=== PATIENT | female | born 1950 | race Two or more races ===

== ENCOUNTER → 2016-03-16 | Outpatient (CLI) | payer MEDICARE, MEDICAID | LOC: RAD 09:53 | PROVIDERS: ATTEND Internal Medicine | DX: M25.531 Pain in right wrist (principal) ==

== ENCOUNTER 2016-07-17 05:41 | Emergency (ER) | payer MEDICARE, MEDICAID ==
[2016-07-17] MEDS ORDERED: DEXAMETHASONE SOD PHOS INJ 10 MG/1 ML VIAL IM ONE (06:20)
--- NOTE | 2016-07-17 06:23 | ER Document Report ---
ED General - General Chief Complaint: Hand Swelling Stated Complaint: HAND PAIN Mode of Arrival: Ambulatory Information source: Patient Notes: 66-year-old female presents with complaints of right wrist swelling and hand pain of over 2 year duration. Patient notes she has been seen multiple times by her primary care physician and orthopedic physician, patient just had an MRI performed of her hand and was diagnosed with rheumatoid arthritis. Patient notes she was given voltaren cream which has not improved her symptoms. Patient denies any chest pain shortness breath difficulty breathing fevers or chills TRAVEL OUTSIDE OF THE [place] IN LAST 30 DAYS: No - HPI Onset: Just prior to arrival Onset/Duration: Sudden Quality of pain: Achy Severity: Mild Pain Level: 1 Associated symptoms: Body/muscle aches Exacerbated by: Movement Relieved by: Denies Similar symptoms previously: Yes Recently seen / treated by doctor: Yes - Related Data Allergies/Adverse Reactions: Penicillins Allergy (Verified 06/03/15 16:58) Hives, Dizziness Past Medical History - Social History Smoking Status: Never Smoker Cigarette use (# per day): No Chew tobacco use (# tins/day): No Smoking Education Provided: No Family History: Reviewed & Not Pertinent Patient has suicidal ideation: No Patient has homicidal ideation: No - Past Medical History Cardiac Medical History: Reports: Hx Atrial Fibrillation, Hx Coronary Artery Disease, Hx Hypercholesterolemia, Hx Hypertension Pulmonary Medical History: Reports: Hx Asthma, Hx Bronchitis, Hx COPD, Hx Pneumonia, Hx Sleep Apnea Renal/ Medical History: Reports: Hx Renal Insufficiency. Denies: Hx Peritoneal Dialysis GI Medical History: Reports: Hx Gastroesophageal Reflux Disease Musculoskeltal Medical History: Reports Hx Arthritis, Reports Hx Gout Psychiatric Medical History: Denies: Hx Depression Past Surgical History: Reports: Hx Cardiac Catheterization - 08-08-2013, Hx Cardiac Surgery, Hx Section, Hx Coronary Artery Bypass Graft - 4 vessel CABG in 2000 - Immunizations Immunizations up to date: Yes Hx Diphtheria, Pertussis, Tetanus Vaccination: Yes Hx Pneumococcal Vaccination: 04/20/14 Review of Systems - Review of Systems Notes: REVIEW OF SYSTEMS: CONSTITUTIONAL : Denies fever, chills, or sweats. Denies recent illness. EENT: Denies eye, ear, throat, or mouth pain or symptoms. Denies nasal or sinus congestion or discharge. Denies throat, tongue, or mouth swelling or difficulty swallowing. CARDIOVASCULAR: Denies chest pain. Denies palpitations or racing or irregular heart beat. Denies ankle edema. RESPIRATORY: Denies cough, cold, or chest congestion. Denies shortness of breath, difficulty breathing, or wheezing. GASTROINTESTINAL: Denies abdominal pain or distention. Denies nausea, vomiting , or diarrhea. Denies blood in vomitus, stools, or per rectum. Denies black, tarry stools. Denies constipation. GENITOURINARY: Denies difficulty urinating, painful urination, burning, frequency, blood in urine, or discharge. FEMALE GENITOURINARY: Denies vaginal bleeding, heavy or abnormal periods, irregular periods. Denies vaginal discharge or odor. MUSCULOSKELETAL: Admits to right wrist pain swelling SKIN: Denies rash, lesions or sores. HEMATOLOGIC : Denies easy bruising or bleeding. LYMPHATIC: Denies swollen, enlarged glands. NEUROLOGICAL: Denies confusion or altered mental status. Denies passing out or loss of consciousness. Denies dizziness or lightheadedness. Denies headache. Denies weakness or paralysis or loss of use of either side. Denies problems with gait or speech. Denies sensory loss, numbness, or tingling. Denies seizures. PSYCHIATRIC: Denies anxiety or stress. Denies depression, suicidal ideation, or homicidal ideation. ALL OTHER SYSTEMS REVIEWED AND NEGATIVE. Dictation was performed using [employer] voice recognition software PHYSICAL EXAMINATION: GENERAL: Well-appearing, well-nourished and in no acute distress. HEAD: Atraumatic, normocephalic. EYES: Pupils equal round and reactive to light, extraocular movements intact, conjunctiva are normal. ENT: Nares patent, oropharynx clear without exudates. Moist mucous membranes. NECK: Normal range of motion, supple without lymphadenopathy LUNGS: Breath sounds clear to auscultation bilaterally and equal. No wheezes rales or rhonchi. HEART: Regular rate and rhythm without murmurs ABDOMEN: Soft, nontender, nondistended abdomen. No guarding, no rebound. No masses appreciated. Female : deferred Musculoskeletal: Mild edema at the wrist tenderness all throughout the digits no secondary sign of cellulitis, pulses are intact, rheumatoid nodule noted NEUROLOGICAL: Cranial nerves grossly intact. Normal speech, normal gait. Normal sensory, motor exams PSYCH: Normal mood, normal affect. SKIN: Warm, Dry, normal turgor, no rashes or lesions noted. Physical Exam - Vital signs Vitals: Temp Pulse Resp BP Pulse Ox 98.2 F 66 18 148/71 H 100 07/17/16 05:43 07/17/16 05:43 07/17/16 05:43 07/17/16 05:43 07/17/16 05:43 Course - Re-evaluation Re-evalutation: 07/17/16 06:28 Patient has no obvious signs of deep vein thrombosis or cellulitis, given the patient has had this chronic swelling for over 2 years and had a recent MRI I do agree with the diagnosis of rheumatoid arthritis. Patient will be treated with steroids, she does have a history of "borderline diabetes ", she has been encouraged to recheck her blood sugar 3 times a day, and to return immediately if there are any other concerns After performing a Medical Screening Examination, I estimate there is LOW risk for OPEN FRACTURE, COMPARTMENT SYNDROME, TENDON RUPTURE, ACUTE NEUROVASCULAR INJURY, or RETAINED FOREIGN BODY, thus I consider the discharge disposition reasonable. Also, there is no evidence or peritonitis, sepsis, or toxicity. I have reevaluated this patient multiple times and no significant life threatening changes are noted. The patient and I have discussed the diagnosis and risks, and we agree with discharging home with close follow-up with the understanding that symptoms and presentations can change. We also discussed returning to the Emergency Department immediately if new or worsening symptoms occur. We have discussed the symptoms which are most concerning (e.g., changing or worsening pain, fever, numbness, weakness, cool or painful digits) that necessitate immediate return. - Vital Signs Vital signs: Temp Pulse Resp BP Pulse Ox 98.2 F 66 18 148/71 H 100 07/17/16 05:43 07/17/16 05:43 07/17/16 05:43 07/17/16 05:43 07/17/16 05:43 Discharge - Discharge Clinical Impression: Rheumatoid arthritis of wrist Qualifiers: Rheumatoid factor presence: without rheumatoid factor Laterality: right Qualified Code(s): M06.031 - Rheumatoid arthritis without rheumatoid factor, right wrist Pain of hand Qualifiers: Laterality: right Qualified Code(s): M79.641 - Pain in right hand Condition: Stable Disposition: HOME, SELF-CARE Instructions: Rheumatoid Arthritis ([facility]) Prescriptions: Tramadol HCl 50 mg PO BID #14 tablet Referrals: JULIANN ROCKWELL MD [ACTIVE STAFF] - Follow up tomorrow
[2016-07-17 06:34] VITALS: BP 144/54
== END 2016-07-17 06:30 | disposition home or self-care (01) ==
LOC: ER 05:41
DX: M06.031 Rheumatoid arthritis without rheumatoid factor, right wrist (principal); M79.641 Pain in right hand; I25.10 Atherosclerotic heart disease of native coronary artery without angina pectoris; I10 Essential (primary) hypertension; J44.9 Chronic obstructive pulmonary disease, unspecified; Z95.1 Presence of aortocoronary bypass graft; Z88.0 Allergy status to penicillin
CPT/HCPCS: 99283; 96372; J1100

== ENCOUNTER 2016-08-15 22:18 | Emergency (ER) | payer MEDICARE, MEDICAID ==
[2016-08-15] MEDS ORDERED: ASPIRIN 81 MG TABLET, CHEWABLE PO ONE (23:06)
--- NOTE | 2016-08-15 23:30 | RADIOLOGY REPORT (SQ) ---
EXAM DESCRIPTION: CHEST SINGLE VIEW COMPLETED DATE/TIME: 08/15/2016 11:21 pm REASON FOR STUDY: cp COMPARISON: 08/20/2015 EXAM PARAMETERS: NUMBER OF VIEWS: One view. TECHNIQUE: Single frontal radiographic view of the chest acquired. RADIATION DOSE: NA LIMITATIONS: None. FINDINGS: LUNGS AND PLEURA: No opacities, masses or pneumothorax. No pleural effusion. MEDIASTINUM AND HILAR STRUCTURES: No masses. Contour normal. HEART AND VASCULAR STRUCTURES: Heart normal in size. Normal vasculature. BONES: No acute findings. HARDWARE: Sternotomy wires are in place. OTHER: No other significant finding. IMPRESSION: NO ACUTE RADIOGRAPHIC FINDING IN THE CHEST. TECHNICAL DOCUMENTATION: JOB ID: [id number]
[2016-08-15 23:36] LABS: ABSOLUTE BASOPHILS # (AUTO) 0.1 10^3/uL (0.0-0.2); ABSOLUTE EOSINOPHILS # (AUTO) 0.1 10^3/uL (0.0-0.6); ABSOLUTE MONOCYTES (AUTO) 1.2 10^3/uL (0.1-1.4); BASOPHILS % (AUTO) 0.5 % (0-2); HEMATOCRIT 37.2 % (36.0-47.0); HEMOGLOBIN 12.3 g/dL (12.0-15.5); HGB HCT DIFFERENCE -0.3; LYMPHOCYTES % (AUTO) 16.1 % (13-45); MEAN CORPUSCULAR HEMOGLOBIN 28.6 pg (27.0-33.4); MEAN CORPUSCULAR HGB CONC 33.1 g/dL (32.0-36.0); MEAN CORPUSCULAR VOLUME 86 fl (80-97); MONOCYTES % (AUTO) 9.4 % (3-13); RED CELL DISTRIBUTION WIDTH 15.2 % (11.5-14.0); WHITE BLOOD COUNT 12.3 10^3/uL (4.0-10.5)
--- NOTE | 2016-08-15 23:37 | ER Document Report ---
ED General - General Chief Complaint: Back Pain Stated Complaint: CHEST PAIN Time Seen by Provider: 08/15/16 23:26 Notes: Patient is a 66-year-old female who presents with complaint of back pain that radiates around the lateral ribs. No anterior chest pain. No anterior abdominal pain. No difficulty breathing. Patient says the pain is been there for approximately a week. She saw Dr. Costa, her primary care physician. He did injections of her knees for chronic arthritis and and also placed her on a muscle relaxer for her back pain. She also has a history of gout. She is also followed by the orthopedist, Dr. Hahn. She denies any recent fevers. No infections. She does have a history of coronary artery disease with coronary bypass. This was performed in 2011. She denies any problems with coronary disease since the bypass surgery. No leg weakness or numbness. No dysuria. No other complaints at this time. TRAVEL OUTSIDE OF THE [place] IN LAST 30 DAYS: No - Related Data Allergies/Adverse Reactions: Penicillins Allergy (Verified 06/03/15 16:58) Hives, Dizziness Past Medical History - Social History Smoking Status: Unknown if Ever Smoked Frequency of alcohol use: None Drug Abuse: None Family History: Reviewed & Not Pertinent Patient has suicidal ideation: No Patient has homicidal ideation: No - Past Medical History Cardiac Medical History: Reports: Hx Atrial Fibrillation, Hx Coronary Artery Disease, Hx Hypercholesterolemia, Hx Hypertension Pulmonary Medical History: Reports: Hx Asthma, Hx Bronchitis, Hx COPD, Hx Pneumonia, Hx Sleep Apnea Renal/ Medical History: Reports: Hx Renal Insufficiency. Denies: Hx Peritoneal Dialysis GI Medical History: Reports: Hx Gastroesophageal Reflux Disease Musculoskeltal Medical History: Reports Hx Arthritis, Reports Hx Gout Psychiatric Medical History: Denies: Hx Depression Past Surgical History: Reports: Hx Cardiac Catheterization - 08-08-2013, Hx Cardiac Surgery, Hx Section, Hx Coronary Artery Bypass Graft - 4 vessel CABG in 2000 - Immunizations Immunizations up to date: Yes Hx Diphtheria, Pertussis, Tetanus Vaccination: Yes Hx Pneumococcal Vaccination: 04/20/14 Review of Systems - Review of Systems Notes: My Normal Review Basic REVIEW OF SYSTEMS: CONSTITUTIONAL : Denies fever, chills, or sweats. Denies recent illness. EENT: Denies eye, ear, throat, or mouth pain or symptoms. Denies nasal or sinus congestion. CARDIOVASCULAR: Denies chest pain. RESPIRATORY: Denies cough, cold, or chest congestion. Denies shortness of breath, difficulty breathing, or wheezing. GASTROINTESTINAL: Denies abdominal pain. Denies nausea, vomiting, or diarrhea. Denies constipation. Last BM: GENITOURINARY: Denies difficulty urinating, painful urination, burning, frequency, or blood in urine. MUSCULOSKELETAL: Denies neck or back pain or joint pain or back pain, knee pain. SKIN: Denies rash or skin lesions. NEUROLOGICAL: Denies altered mental status or loss of consciousness. Denies headache. Denies weakness or paralysis or loss of use of either side. Denies problems with gait or speech. Denies sensory or motor loss. ALL OTHER SYSTEMS REVIEWED AND NEGATIVE. Physical Exam - Vital signs Vitals: Temp Pulse Resp BP Pulse Ox 98.2 F 70 16 89/50 L 95 08/15/16 22:55 08/15/16 22:55 08/15/16 22:55 08/15/16 22:55 08/15/16 22:55 - Notes Notes: General Appearance: Well nourished, alert, cooperative, no acute distress, mild obvious discomfort. Vitals: reviewed, See vital signs table. Head: no swelling or tenderness to the head Eyes: PERRL, EOMI, Conjuctiva clear Mouth: No decreasd moisture Throat: No tonsillar inflammation, No airway obstruction, No lymphadenopathy Neck: Supple, no neck tenderness, Lungs: No wheezing, No rales, No rhonci, No accessory muscle use, good air exchange bilaterally. Heart: Normal rate, Regular rythm, No murmur, no rub Back: Easily reproducible pain over the thoracic paraspinal musculature. Paraspinal musculature is firm and tight. Lumbar spine is nontender. No step- offs deformities of the thoracic spine. Abdomen: Normal BS, soft, No rigidity, No abdominal tenderness, No guarding, no rebound, no abdominal masses, no organomegaly Extremities: strength 5/5 in all extremities, good pulses in all extremities, no swelling or tenderness in the extremities, no edema. Skin: warm, dry, appropriate color, no rash Neuro: speech clear, oriented x 3, normal affect, responds appropriately to questions. Course - Vital Signs Vital signs: Temp Pulse Resp BP Pulse Ox 98.2 F 70 16 89/50 L 95 08/15/16 22:55 08/15/16 22:55 08/15/16 22:55 08/15/16 22:55 08/15/16 22:55 - Laboratory Result Diagrams: 08/15/16 23:15 08/15/16 23:15 Laboratory results interpreted by me: 08/15/16 08/15/16 08/16/16 23:15 23:15 01:00 WBC 12.3 H RDW 15.2 H Absolute Neutrophils 9.0 H Chloride 97 L BUN 37 H Creatinine 1.35 H Est GFR ( Amer) 47 L Est GFR (Non-Af Amer) 39 L Glucose 234 H Creatine Kinase < 20 L Urine Glucose (UA) 50 H - EKG Interpretation by Me Additional EKG results interpreted by me: 08/15/16 23:36 EKG is reviewed and interpreted by me. EKG shows normal sinus rhythm with rate of [address] segment elevation or depression. No ischemic T-wave inversions. VA interval, QRS duration, QTc intervals are within normal range. Patient does have Q waves in inferior leads which is unchanged in comparison to their old EKG from February 27, 2016. - Transfer of Care Notes: 08/16/16 02:30 Patient's pain seems very muscle skeletal exam. Easily reproducible with palpation and movement. My only concern was that the patient was hypotensive when her first vital signs were obtained in triage. I think he is hypotensive vital signs most likely are false being that they immediately brought her back to the room and since being in the main ED room her blood pressures have all been either high or normal. She has good peripheral pulses. Being that she did have initial possible hypotension I did do a CTA to rule out dissection being that she had the back pain with the potential hypertension. This was negative. Patient's laboratory evaluation is unremarkable. There is a possibility is because of her hypertension could be that she was started on muscle relaxers today and this could potentially have lowered her blood pressure. I will have her stop taking the muscle relaxers. She has Ultram at home and has not been taking it. I encouraged her to take this for pain. I encouraged her follow-up closely with Dr. Costa. Patient's been here for several hours and has had no repeat hypotension. Patient has no chest pain. Cardiac enzymes are negative. Her chest x-ray is normal. Patient will be discharged home but is encouraged to return to ER for chest pain, abdominal pain , dizziness, or feels unwell. Patient denied any dizziness at all throughout the day and had no symptoms that would have been consistent with hypotension. Dictation of this chart was performed using voice recognition software; therefore, there may be some unintended grammatical errors. Discharge - Discharge Clinical Impression: Back pain Qualifiers: Back pain location: thoracic back pain Chronicity: acute Back pain laterality: bilateral Qualified Code(s): M54.6 - Pain in thoracic spine Knee pain, chronic Qualifiers: Laterality: bilateral Qualified Code(s): M25.561 - Pain in right knee Condition: Good Disposition: HOME, SELF-CARE Additional Instructions: Please take your tramadol at home. Please stop taking the muscle relaxer. Please follow up with Dr. Pollard closely. Please follow up with Dr. Hahn in regards to your knee pain. Please return tot ER immediately if you develop chest pain, difficulty breathing, fevers, dizziness, or feel unwell. Referrals: TAMMIE COSTA MD [Primary Care Provider] - Follow up tomorrow
[2016-08-15 23:41] LABS: ALANINE AMINOTRANSFERASE 28 U/L (9-52); ALBUMIN 4.2 g/dL (3.5-5.0); ALKALINE PHOSPHATASE 109 U/L (38-126); ANION GAP 14 (5-19); ASPARTATE AMINO TRANSFERASE 26 U/L (14-36); BILIRUBIN,DIRECT 0.3 mg/dL (0.0-0.4); BILIRUBIN,TOTAL 0.6 mg/dL (0.2-1.3); BLOOD UREA NITROGEN 37 mg/dL (7-20); CARBON DIOXIDE 27 mmol/L (22-30); CHLORIDE 97 mmol/L (98-107); CREATININE RESULT 1.35 mg/dL (0.52-1.25); GLUCOSE 234 mg/dL (75-110); POTASSIUM 4.1 mmol/L (3.6-5.0); SODIUM 137.8 mmol/L (137-145); TOTAL PROTEIN 8.2 g/dL (6.3-8.2)
[2016-08-15 23:44] LABS: CREATINE KINASE < 20 U/L (30-135)
[2016-08-15 23:55] LABS: CREATINE KINASE MB < 0.22 ng/mL (<4.55); TROPONIN I < 0.012 ng/mL
[2016-08-16] MEDS ORDERED: NORMAL SALINE 500 ML IV ONE (00:20)
[2016-08-16 01:32] LABS: APPEARANCE,URINE CLEAR; BILIRUBIN,URINE NEGATIVE (NEGATIVE); GLUCOSE, URINE 50 mg/dL (NEGATIVE); KETONES,URINE NEGATIVE (NEGATIVE); LEUKOCYTE ESTERASE,URINE NEGATIVE (NEGATIVE); NITRITE,URINE NEGATIVE (NEGATIVE); PROTEIN,URINE NEGATIVE (NEGATIVE); URINE SPECIFIC GRAVITY 1.014; UROBILINOGEN,URINE NEGATIVE mg/dL (<2.0)
--- NOTE | 2016-08-16 01:48 | RADIOLOGY REPORT (SQ) ---
EXAM DESCRIPTION: CTA CHEST COMPLETED DATE/TIME: 08/16/2016 1:25 am REASON FOR STUDY: BACK PAIN, CONCERN FOR DISECTION, PE COMPARISON: None. TECHNIQUE: CT scan of the chest performed using helical scanning technique with dynamic intravenous contrast injection. Images reviewed with lung, soft tissue and bone windows. Reconstructed coronal and sagittal MPR images reviewed. Additional 3 dimensional post-processing performed to develop Maximal Intensity Projection images (MT P). All images stored on PACS. All CT scanners at this facility use dose modulation, iterative reconstruction, and/or weight based d osing when appropriate to reduce radiation dose to as low as reasonably achievable (ALARA). [facility]: Dose Right [facility]: CareDose [facility]: Dose Right [facility]: Teradose 4D [facility]: [place] CONTRAST TYPE AND DOSE: 100 mL Isovue 370- low osmolar. RENAL FUNCTION: Creatinine 1.4 RADIATION DOSE: 14.81 mGy. LIMITATIONS: None. FINDINGS: LUNGS AND PLEURA: No masses, infiltrates, pneumothorax. No pleural effusions, calcificati ons. Small atelectasis or scar includes the left lung base and lingula. AORTA AND GREAT VESSELS: No aneurysm or dissection. HEART: No pericardial effusion. Coronary arterial calcification. PULMONARY ARTERIES: No emboli visualized in the main pulmonary arteries or the segmental branches. HILAR AND MEDIASTINAL STRUCTURES: No identified masses or abnormal nodes. HARDWARE: Sternotomy. UPPER ABDOMEN: No significant findings. Limited exam. THYROID AND OTHER SOFT TISSUES: No masses. No adenopathy. BONES: No acute findings. [id number] disc desiccation. 3D MIPS: Confirm above findings. OTHER: No other significant finding. IMPRESSION: No acute cardiopulmonary findings. NO PULMONARY EMBOLI. TECHNICAL DOCUMENTATION: JOB ID: [id number] Quality ID # [id number]: Final reports with documentation of one or more dose reduction techniques (e.g., Au tomated exposure control, adjustment of the mA and/or kV according to patient size, use of iterative reconstruction technique) 2010 [employer]- All Rights Reserved
--- NOTE | 2016-08-16 01:51 | RADIOLOGY REPORT (SQ) ---
EXAM DESCRIPTION: CT ABD/PELVIS WITH IV ONLY COMPLETED DATE/TIME: 08/16/2016 1:25 am REASON FOR STUDY: BACK PAIN, CONCERN FOR DISECTION, PE COMPARISON: None. TECHNIQUE: CT scan of the abdomen and pelvis performed using helical scanning technique with dynamic intravenous contrast injection. No oral contrast. Images reviewed with lung, soft tissue, and bone windows. Reconstructed coronal and sagittal MPR images reviewed. Delayed images for evaluation of the urinary system also acquired. All images stored on PACS. All CT scanners at this facility use dose modulation, iterative reconstruction, and/or weight based d osing when appropriate to reduce radiation dose to as low as reasonably achievable (ALARA). [facility]: Dose Right [facility]: CareDose [facility]: Dose Right [facility]: Teradose 4D [facility]: Wiper CONTRAST TYPE AND DOSE: 100mL Isovue 370- low osmolar. RENAL FUNCTION: Creatinine 1.4 RADIATION DOSE: 14.35mGy. LIMITATIONS: None. FINDINGS: LOWER CHEST: See separate report of the CT of the chest. LIVER: Normal size. No masses or dilated ducts. Mild hepatic steatosis. SPLEEN: Normal size. No focal lesions. PANCREAS: No masses. No significant calcifications. No adjacent inflammation or peripancreatic fluid collections. Pancreatic duct not dilated. GALLBLADDER: No identified stones by CT criteria. No inflammatory changes to suggest cholecystitis. ADRENAL GLANDS: No significant masses or asymmetry. RIGHT KIDNEY AND URETER: No solid masses. No significant calcifications. No hydronephrosis or hyd roureter. LEFT KIDNEY AND URETER: No solid masses. No significant calcifications. No hydronephrosis or hydr oureter. 1.0 cm likely benign cyst of the left kidney not definitively characterized. AORTA AND VESSELS: No aneurysm. No dissection. Renal arteries, SMA, celiac without stenosis. Atheros clerosis. RETROPERITONEUM: No retroperitoneal adenopathy, hemorrhage or masses. BOWEL AND PERITONEAL CAVITY: No masses or inflammatory changes. No free fluid or peritoneal masses. APPENDIX: Normal. PELVIS: No mass or free fluid. Normal bladder. ABDOMINAL WALL: No masses. No hernias. BONES: No significant or acute findings. Small L3-L4 disc bulge. OTHER: No other significant finding. IMPRESSION: NO SIGNIFICANT OR ACUTE FINDING IN THE ABDOMEN OR PELVIS ON CT SCAN WITH IV CONTRAST. TECHNICAL DOCUMENTATION: JOB ID: [id number] Quality ID # [id number]: Final reports with documentation of one or more dose reduction techniques (e.g., Au tomated exposure control, adjustment of the mA and/or kV according to patient size, use of iterative reconstruction technique) 2010 [email or web address]- All Rights Reserved
[2016-08-16 03:05] VITALS: BP 124/66
--- NOTE | 2016-08-16 09:13 | EKG REPORT ---
SEVERITY:- NORMAL ECG - SINUS RHYTHM : Confirmed by: Alison Garcia MD 16-Aug-2016 09:12:27
== END 2016-08-16 03:03 | disposition home or self-care (01) ==
LOC: ER 22:18
DX: M54.6 Pain in thoracic spine (principal); M25.561 Pain in right knee; M54.9 Dorsalgia, unspecified; R07.9 Chest pain, unspecified
CPT/HCPCS: 93005; 99284; 96360; 36415; 82553; 82550; 85025; 80053; 81001; 84484; 71010; 71275; 74177; 93010; A9270; J7040

== ENCOUNTER 2016-08-20 12:59 | Emergency (ER) | payer MEDICARE, MEDICAID ==
--- NOTE | 2016-08-20 14:17 | ER Document Report ---
ED Extremity Problem, Lower - General Chief Complaint: Swelling of Lower Extremity Stated Complaint: SWELLING OF FEET Time Seen by Provider: 08/20/16 13:47 Mode of Arrival: Ambulatory Information source: Patient Notes: 36-year-old female presents to ED for left foot pain and swelling. She states it has been this way since about the end of July and she has been to the doctor couple times and got a TRAVEL OUTSIDE OF THE [place] IN LAST 30 DAYS: No - HPI Patient complains to provider of: Pain, Swelling - left foot Location: Foot Occurred: Other - several weeks Onset/Duration: Gradual, Persistent Quality of pain: Sharp, Throbbing Severity: Severe Pain Level: 5 Context: Other - has gout Recent injury: No Associated symptoms: Painful ambulation Exacerbated by: Movement, Walking Relieved by: Nothing - Related Data Allergies/Adverse Reactions: Penicillins Allergy (Verified 08/20/16 13:01) Hives, Dizziness Past Medical History - General Information source: Patient - Social History Smoking Status: Never Smoker Cigarette use (# per day): No Chew tobacco use (# tins/day): No Smoking Education Provided: No Frequency of alcohol use: Occasional Drug Abuse: None Lives with: Family Family History: Reviewed & Not Pertinent Patient has suicidal ideation: No Patient has homicidal ideation: No - Past Medical History Cardiac Medical History: Reports: Hx Atrial Fibrillation, Hx Coronary Artery Disease, Hx Hypercholesterolemia, Hx Hypertension Pulmonary Medical History: Reports: Hx Asthma, Hx Bronchitis, Hx COPD, Hx Pneumonia, Hx Sleep Apnea EENT Medical History: Reports: None Neurological Medical History: Reports: None Endocrine Medical History: Reports: Hx Diabetes Mellitus Type 2 Renal/ Medical History: Reports: Hx Renal Insufficiency Malignancy Medical History: Reports: None GI Medical History: Reports: Hx Gastroesophageal Reflux Disease Musculoskeltal Medical History: Reports Hx Arthritis, Reports Hx Gout Skin Medical History: Reports None Psychiatric Medical History: Reports: None Traumatic Medical History: Reports: None Infectious Medical History: Reports: None Past Surgical History: Reports: Hx Cardiac Catheterization - 08-08-2013, Hx Cardiac Surgery, Hx Section, Hx Coronary Artery Bypass Graft - 4 vessel CABG in 2000 - Immunizations Immunizations up to date: Yes Hx Diphtheria, Pertussis, Tetanus Vaccination: Yes Hx Pneumococcal Vaccination: 04/20/14 Review of Systems - Review of Systems Constitutional: No symptoms reported EENT: No symptoms reported Cardiovascular: No symptoms reported Respiratory: No symptoms reported Gastrointestinal: No symptoms reported Genitourinary: No symptoms reported Female Genitourinary: No symptoms reported Musculoskeletal: Other - red painful left foot Skin: No symptoms reported Hematologic/Lymphatic: No symptoms reported Neurological/Psychological: No symptoms reported -: Yes All other systems reviewed and negative Physical Exam - Vital signs Vitals: Temp Pulse Resp BP Pulse Ox 97.8 F 90 18 159/73 H 98 08/20/16 13:01 08/20/16 13:01 08/20/16 13:01 08/20/16 13:01 08/20/16 13:01 Interpretation: Normal - General General appearance: Appears well, Alert - HEENT Head: Normocephalic, Atraumatic Eyes: Normal Pupils: PERRL - Respiratory Respiratory status: No respiratory distress Chest status: Nontender Breath sounds: Normal Chest palpation: Normal - Cardiovascular Rhythm: Regular Heart sounds: Normal auscultation Murmur: No - Abdominal Inspection: Normal Distension: No distension Bowel sounds: Normal Tenderness: Nontender Organomegaly: No organomegaly - Back Back: Normal, Nontender - Extremities General upper extremity: Normal inspection, Nontender, Normal color, Normal ROM , Normal temperature General lower extremity: Normal ROM. No: Liz's sign Foot: Tender, Other - Erythematous warm to touch and minimal swelling. Patient has a history of gout and is being treated for gout but patient did not take the prednisone as prescribed. - Neurological Neuro grossly intact: Yes Cognition: Normal Orientation: AAOx4 Phillip Coma Scale Eye Opening: Spontaneous [place] Coma Scale Verbal: Oriented Phillip Coma Scale Motor: Obeys Commands Phillip Coma Scale Total: 15 Speech: Normal Motor strength normal: LUE, RUE, LLE, RLE Sensory: Normal - Psychological Associated symptoms: Normal affect, Normal mood - Skin Skin Temperature: Warm Skin Moisture: Dry Skin Color: Normal Course - Re-evaluation Re-evalutation: 08/20/16 16:09 Dr. Cole concerning the blood levels and her assessment. He recommended putting the patient on decreasing dose of prednisone 6 day and then 4 days of just 10 mg a day. He also recommended she be started on allopurinol 100 mg a day and Percocet for pain is been a tramadol. These were all ordered. Patient was recommended to follow-up with Dr. Costa tomorrow and take her lab values and her prescriptions with her. - Vital Signs Vital signs: Temp Pulse Resp BP Pulse Ox 98.5 F 74 18 150/73 H 97 08/20/16 16:17 08/20/16 16:17 08/20/16 16:17 08/20/16 16:17 08/20/16 16:17 - Laboratory Result Diagrams: 08/20/16 14:15 08/20/16 14:15 Laboratory results interpreted by me: 08/20/16 08/20/16 14:15 14:15 WBC 11.9 H Hgb 11.3 L Hct 35.2 L RDW 15.0 H Seg Neutrophils % 81.9 H Lymphocytes % 7.3 L Absolute Neutrophils 9.8 H Sodium 133.2 L Chloride 93 L BUN 62 H Creatinine 1.30 H Est GFR ( Amer) 49 L Est GFR (Non-Af Amer) 41 L Glucose 239 H Uric Acid 13.0 H Direct Bilirubin 0.5 H AST 75 H ALT 110 H Alkaline Phosphatase 188 H Discharge - Discharge Clinical Impression: Gout Qualifiers: Gout site: foot Gout etiology: idiopathic Chronicity: chronic Laterality: left Presence of tophus: with tophus Qualified Code(s): M1A.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 Gout is a problem caused by an excess of uric acid, a natural chemical found in the body. The cause of this disease is unknown. Gout arthritis occurs when crystals of uric acid form in the joints. The big toe is the most common joint involved, but any joint can become affected. Persons with gout may also form uric acid kidney stones, resulting in flank pain and blood in the urine. Nodules of uric acid may form under the skin. The first step of treatment is to decrease the inflammation in the joint with antiinflammatory medication. Medication to lower the uric acid level in the blood may then be prescribed. This medication should be taken regularly, as any sudden change in dosage may provoke an attack of gout. Some foods, such as red meat, can provoke an attack in some gout sufferers. Call the doctor if new symptoms arise, or if you do not improve. Gout Diet Changing your diet can decrease the uric acid in your blood. High levels of uric acid cause gouty arthritis and uric acid kidney stones. If you have gout , you should avoid meats that are high in purine. Meat products to avoid include liver, kidneys, and brains. In general, poultry is better than red meats. Seafoods to avoid include anchovies, sardines, singh, mackerel, and scallops. In addition to limiting purine-rich foods, people with gout should limit protein intake to 10-15% of total calories. Carbohydrate intake should be around 50% of total daily calories. Limit fat intake to 30% of total daily calories. Cholesterol intake should be less than 300 mg/day. Maintain or achieve a healthy body weight. Weight loss should be gradual. Rapid weight loss can actually increase uric acid levels temporarily. Alcohol, especially beer, should be avoided. Get plenty of fluids. This dilutes urinary uric acid, and helps prevent uric acid kidney stones. Drink eight to twelve cups of water daily. STEROID MEDICATION: You have been given a medicine of the cortisone/steroid class. This medication is used to control inflammation or allergy. It is usually only given for a short period of time, until the acute process subsides. There are usually no side effects from short-term use of cortisone-like medications. Some persons feel an increased sense of well-being and are not sleepy at bedtime. Long-term use of cortisone medications is best avoided, unless required for a severe condition. If your condition does not remit, or relapses after the course of corticosteroid medication, you should consult your physician. Oral Narcotic Medication You have been given a prescription for pain control. This medication is a narcotic. It's best taken with food, as nausea can result if taken on an empty stomach. Don't operate machinery or drive within six hours of taking this medication. Do not combine this medicine with alcohol, or with any medication which can cause sedation (such as cold tablets or sleeping pills) unless you get permission from the physician. Narcotics tend to cause constipation. If possible, drink plenty of fluids and eat a diet high in fiber and fruits. FOLLOW-UP CARE: If you have been referred to a physician for follow-up care, call the physician s office for an appointment as you were instructed or within the next two days. If you experience worsening or a significant change in your symptoms, notify the physician immediately or return to the Emergency Department at any time for re-evaluation. Prescriptions: Oxycodone HCl/Acetaminophen [Percocet 5-325 mg Tablet] 1 tab PO Q6HP PRN #15 tablet PRN Reason: Allopurinol [Zyloprim 100 mg Tablet] 100 mg PO DAILY #30 tablet Prednisone [Sterapred Ds] 10 mg PO ASDIR PRN #25 tab.ds.pk PRN Reason: Forms: Elevated Blood Pressure Referrals: TAMMIE COSTA MD [Primary Care Provider] - Follow up as needed
[2016-08-20 14:41] LABS: ABSOLUTE LYMPHOCYTES (AUTO) 0.9 10^3/uL (0.5-4.7); ABSOLUTE MONOCYTES (AUTO) 1.3 10^3/uL (0.1-1.4); ABSOLUTE NEUT (AUTO) 9.8 10^3/uL (1.7-8.2); BASOPHILS % (AUTO) 0.1 % (0-2); EOSINOPHILS % (AUTO) 0.2 % (0-6); HEMATOCRIT 35.2 % (36.0-47.0); HEMOGLOBIN 11.3 g/dL (12.0-15.5); HGB HCT DIFFERENCE -1.3; LYMPHOCYTES % (AUTO) 7.3 % (13-45); MEAN CORPUSCULAR HEMOGLOBIN 27.9 pg (27.0-33.4); MEAN CORPUSCULAR HGB CONC 32.2 g/dL (32.0-36.0); MEAN CORPUSCULAR VOLUME 87 fl (80-97); MONOCYTES % (AUTO) 10.5 % (3-13); RED BLOOD COUNT 4.06 10^6/uL (3.72-5.28); SEGMENTED NEUTROPHILS % (AUTO) 81.9 % (42-78); WHITE BLOOD COUNT 11.9 10^3/uL (4.0-10.5)
[2016-08-20 14:56] LABS: ALANINE AMINOTRANSFERASE 110 U/L (9-52); ALBUMIN 3.7 g/dL (3.5-5.0); ALKALINE PHOSPHATASE 188 U/L (38-126); ANION GAP 16 (5-19); ASPARTATE AMINO TRANSFERASE 75 U/L (14-36); BILIRUBIN,DIRECT 0.5 mg/dL (0.0-0.4); BILIRUBIN,TOTAL 0.8 mg/dL (0.2-1.3); BLOOD UREA NITROGEN 62 mg/dL (7-20); CALCIUM 9.4 mg/dL (8.4-10.2); CARBON DIOXIDE 24 mmol/L (22-30); CHLORIDE 93 mmol/L (98-107); CREATINE KINASE 30 U/L (30-135); GLUCOSE 239 mg/dL (75-110); POTASSIUM 4.1 mmol/L (3.6-5.0); SODIUM 133.2 mmol/L (137-145); TOTAL PROTEIN 7.4 g/dL (6.3-8.2)
[2016-08-20 15:28] LABS: CREATINE KINASE MB 0.47 ng/mL (<4.55)
[2016-08-20 15:30] LABS: TROPONIN I < 0.012 ng/mL
[2016-08-20 16:19] VITALS: BP 150/73
== END 2016-08-20 16:18 | disposition home or self-care (01) ==
LOC: ER 12:59
DX: M1A.0721 Idiopathic chronic gout, left ankle and foot, with tophus (tophi) (principal); M79.89 Other specified soft tissue disorders; M79.672 Pain in left foot
CPT/HCPCS: 36415; 80053; 82550; 82553; 84484; 84550; 85025; 99283

== ENCOUNTER → 2016-09-05 | Outpatient (CLI) | payer MEDICARE ==
--- NOTE | 2016-09-05 14:09 | WOMENS IMAGING REPORT ---
EXAM DESCRIPTION: 3D SCREENING MAMMO BILAT COMPLETED DATE/TIME: 09/05/2016 11:42 am REASON FOR STUDY: ROUTINE SCREENING; Z12.31 Z12.31 ENCNTR SCREEN MAMMOGRAM FOR MALIGNANT NEOPLASM O F SAPPHIRE COMPARISON: 2012 TECHNIQUE: Standard craniocaudal and mediolateral oblique views of each breast recorded using digita l acquisition and breast tomosynthesis. LIMITATIONS: None. FINDINGS: Findings present which are benign by mammographic criteria. No suspicious masses, calcifi cations or architectural distortion. Pertinent benign findings: Stable benign right breast intramammary lymph node, stable bilateral breas t parenchymal and vascular calcifications. Read with the assistance of CAD. .[facility] - R2 Cenova Version 1.3 .[facility] Imaging - R2 Cenova Version 1.3 .[facility] - R2 Cenova Version 2.4 .[facility] [place] Cenova Version 2.4 .[facility] - R2 Opal Miner Version 9.2 Benign mammographic findings may include one or more of the following: Smooth masses, popcorn/rim/co arse calcifications, asymmetries, post-procedure changes, and lesions with long-standing stability. IMPRESSION: BENIGN MAMMOGRAPHIC FINDINGS. BIRADS 2 BREAST DENSITY: b. There are scattered areas of fibroglandular density. BIRAD: 2 BENIGN FINDING(S) RECOMMENDATION: RECOMMENDATION: ROUTINE SCREENING Please continue yearly bilateral screening tomosynthesis in August 2017 COMMENT: The patient has been notified of the results by letter per SA requirements. Additional no tification policies are in place for contacting patient with suspicious or incomplete findings. Quality ID #[id number]: The [employer] recommends an annual screening mammogram for women aged 40 years or over. This facility utilizes a reminder system to ensure that all patients receive reminder letters, and/or direct phone calls for appointments. This includes reminders for routine scr eening mammograms, diagnostic mammograms, or other Breast Imaging Interventions when appropriate. Th is patient will be placed in the appropriate reminder system. The [employer] (ACR) has developed recommendations for screening MRI of the breast s in certain patient populations, to be used in conjunction with mammography. Breast MRI surveillanc e may be appropriate for women with more than 20% lifetime risk of developing breast cancer as deter mined by genetic testing, significant family history of the disease, or history of mantle radiation f or Hodgkins Disease. ACR Practice Guidelines 2008. DBT Technology DBT is a type of tomographic mammography. With conventional mammography, overlapping breast tissue ma y make lesions difficult to detect, even with good compression. DBT uses an x-ray tube that rotates a round the breast, taking images at different angles. These images are then combined to create thin sl ices of the breast that the radiologist can view as a 3D reconstruction. The Hologic unit can perform full-field digital mammograms (2D imaging); or DBT (3D imaging); or both, in a combination mode that quickly performs both the mammogram and the tomosynthesis scan while the breast is still compressed. PQRS 6045F: Fluoroscopic imaging is not utilized for breast tomosynthesis. TECHNICAL DOCUMENTATION: FINDING NUMBER: (1) ASSESSMENT: (1) JOB ID: [id number] [employer]- All Rights Reserved
== END ==
LOC: WI 11:16
PROVIDERS: ATTEND Internal Medicine
DX: Z12.31 Encounter for screening mammogram for malignant neoplasm of breast (principal)
CPT/HCPCS: 77063; G0202; 77067

== ENCOUNTER 2016-09-20 20:14 | Observation (INO) | payer MEDICARE, MEDICAID ==
[2016-09-20] MEDS ORDERED: ONDANSETRON HCL INJ/PF 4 MG/2 ML SDV IV ONE (22:15)
[2016-09-20] MEDS ORDERED: ASPIRIN 81 MG TABLET, CHEWABLE PO ONE (22:15)
[2016-09-20] MEDS ORDERED: MORPHINE SULFATE 10 MG/ML INJ IV ONE (22:15)
--- NOTE | 2016-09-20 22:17 | ER Document Report ---
ED Cardiac - General Chief Complaint: High Blood Pressure Stated Complaint: BLOOD PRESSURE ISSUES Time Seen by Provider: 09/20/16 21:59 Notes: Patient is a 66 year old female that comes emergency department for chief complaint of chest tightness that began at about 6 PM, this lasted for a couple of minutes and then resolved, she also states that she checked her blood pressure and noticed it was high, she also states that she has a painful left foot with a gout flare. She states she is currently on prednisone for this. She denies current chest pain, denies shortness of breath, cough, fever. Past medical history of COPD, former smoker, hypertension, type 2 diabetes, and CAD with bypass in 2000. Negative stress test 2 years ago. She takes a baby aspirin daily. TRAVEL OUTSIDE OF THE [place] IN LAST 30 DAYS: No - Related Data Allergies/Adverse Reactions: Penicillins Allergy (Verified 08/20/16 13:01) Hives, Dizziness Past Medical History - General Information source: Patient - Social History Smoking Status: Never Smoker Frequency of alcohol use: None Drug Abuse: None Lives with: Alone Family History: Reviewed & Not Pertinent Patient has suicidal ideation: No Patient has homicidal ideation: No - Past Medical History Cardiac Medical History: Reports: Hx Atrial Fibrillation, Hx Coronary Artery Disease, Hx Hypercholesterolemia, Hx Hypertension Pulmonary Medical History: Reports: Hx Asthma, Hx Bronchitis, Hx COPD, Hx Pneumonia, Hx Sleep Apnea Endocrine Medical History: Reports: Hx Diabetes Mellitus Type 2 Renal/ Medical History: Reports: Hx Renal Insufficiency. Denies: Hx Peritoneal Dialysis GI Medical History: Reports: Hx Gastroesophageal Reflux Disease Musculoskeltal Medical History: Reports Hx Arthritis, Reports Hx Gout Psychiatric Medical History: Denies: Hx Depression Past Surgical History: Reports: Hx Cardiac Catheterization - 08-08-2013, Hx Cardiac Surgery, Hx Section, Hx Coronary Artery Bypass Graft - 4 vessel CABG in 2000 - Immunizations Immunizations up to date: Yes Hx Diphtheria, Pertussis, Tetanus Vaccination: Yes Hx Pneumococcal Vaccination: 04/20/14 Review of Systems - Review of Systems Constitutional: No symptoms reported EENT: No symptoms reported Cardiovascular: See HPI Respiratory: No symptoms reported Gastrointestinal: No symptoms reported Genitourinary: No symptoms reported Female Genitourinary: No symptoms reported Musculoskeletal: No symptoms reported Skin: No symptoms reported Hematologic/Lymphatic: No symptoms reported Neurological/Psychological: No symptoms reported Physical Exam - Vital signs Vitals: Temp Pulse Resp BP Pulse Ox 98.2 F 95 18 147/75 H 97 09/20/16 20:30 09/20/16 20:30 09/20/16 20:30 09/20/16 20:30 09/20/16 20:30 Interpretation: Normal - General General appearance: Alert, Anxious In distress: None - patient talks rapidly and slightly nervously - HEENT Head: Normocephalic, Atraumatic Eyes: Normal Pupils: PERRL - Respiratory Respiratory status: No respiratory distress Chest status: Nontender. No: Tender Breath sounds: Normal. No: Decreased air movement, Wheezing Chest palpation: Normal - Cardiovascular Rhythm: Regular, Tachycardia Heart sounds: Normal auscultation, S1 appreciated, S2 appreciated Murmur: No - Abdominal Inspection: Normal Distension: No distension Bowel sounds: Normal Tenderness: Nontender Organomegaly: No organomegaly - Back Back: Normal, Nontender - Extremities General upper extremity: Normal inspection, Nontender, Normal color, Normal ROM , Normal temperature General lower extremity: Normal inspection, Nontender, Normal color, Normal ROM , Normal temperature, Normal weight bearing. No: Liz's sign - Neurological Neuro grossly intact: Yes Cognition: Normal Orientation: AAOx4 [place] Coma Scale Eye Opening: Spontaneous [place] Coma Scale Verbal: Oriented [place] Coma Scale Motor: Obeys Commands [place] Coma Scale Total: 15 Speech: Normal Motor strength normal: LUE, RUE, LLE, RLE Sensory: Normal - Psychological Associated symptoms: Anxious. No: Aggressive, Agitated, Angry, Confused - Skin Skin Temperature: Warm Skin Moisture: Dry Skin Color: Normal Course - Re-evaluation Re-evalutation: EKG shows sinus tachycardia with no T-wave inversions or ST segment changes in consecutive leads. On my examination patient is slightly nervous and anxious, mildly tachycardic, I actually suspect this is related to her emotions. Workup pending. No shortness of breath, LE swelling, recent travel or surgery, or history of blood clot. She does not smoke. Chest x-ray unremarkable, chemistry generally unremarkable suggestive of mild dehydration, CBC shows mild leukocytosis consistent with patient's steroid use for her gout flare. Initial troponin is negative. On reexamination patient's tachycardia resolved, she has calmed down. She reports no current complaints. Enzymes cycled, no significant change. Discussed with Dr. Stevens. Discussed with patient. Because of patient's symptoms, comorbidities, and patient being anxious about going home, will discuss with her provider for potential telemetry observation Discussed with Dr. Cano. Patient will be admitted for telemetry observation. I noticed on the monitor patient became tachycardic at 110s. Evaluated patient at bedside, she states she really has to urinate. After she urinated, heart rate reevaluated and noted to be in the 80s and 90s. Pending admission. - Vital Signs Vital signs: Temp Pulse Resp BP Pulse Ox 98 F 108 H 13 137/61 H 96 09/21/16 04:00 09/20/16 21:52 09/21/16 05:00 09/21/16 04:00 09/21/16 05:00 - Laboratory Result Diagrams: 09/20/16 21:25 09/20/16 21:25 Laboratory results interpreted by me: 09/20/16 09/20/16 09/20/16 21:25 21:25 23:40 WBC 14.2 H RDW 15.2 H Absolute Neutrophils 9.9 H Sodium 134.6 L Chloride 88 L BUN 27 H Est GFR ( Amer) 55 L Est GFR (Non-Af Amer) 46 L Glucose 173 H Alkaline Phosphatase 132 H Creatine Kinase < 20 L Urine Glucose (UA) 50 H Ur Leukocyte Esterase TRACE H Discharge - Discharge Clinical Impression: Left foot pain Chest pain Qualifiers: Chest pain type: unspecified Qualified Code(s): R07.9 - Chest pain, unspecified Condition: Stable Disposition: ADMITTED OBSERVATION Admitting Provider: [facility] Admitted: Telemetry
[2016-09-20 22:25] LABS: ABSOLUTE MONOCYTES (AUTO) 1.3 10^3/uL (0.1-1.4); ABSOLUTE NEUT (AUTO) 9.9 10^3/uL (1.7-8.2); BASOPHILS % (AUTO) 0.3 % (0-2); EOSINOPHILS % (AUTO) 0.3 % (0-6); HEMATOCRIT 38.3 % (36.0-47.0); HEMOGLOBIN 12.5 g/dL (12.0-15.5); HGB HCT DIFFERENCE -0.8; LYMPHOCYTES % (AUTO) 20.9 % (13-45); MEAN CORPUSCULAR HEMOGLOBIN 28.4 pg (27.0-33.4); MEAN CORPUSCULAR HGB CONC 32.7 g/dL (32.0-36.0); MEAN CORPUSCULAR VOLUME 87 fl (80-97); MONOCYTES % (AUTO) 9.2 % (3-13); RED BLOOD COUNT 4.41 10^6/uL (3.72-5.28); RED CELL DISTRIBUTION WIDTH 15.2 % (11.5-14.0); SEGMENTED NEUTROPHILS % (AUTO) 69.3 % (42-78); WHITE BLOOD COUNT 14.2 10^3/uL (4.0-10.5)
--- NOTE | 2016-09-20 22:33 | RADIOLOGY REPORT (SQ) ---
EXAM DESCRIPTION: CHEST SINGLE VIEW COMPLETED DATE/TIME: 09/20/2016 10:26 pm REASON FOR STUDY: chest tightness COMPARISON: Chest radiograph 08/15/2016 EXAM PARAMETERS: NUMBER OF VIEWS: One view. TECHNIQUE: Single frontal radiographic view of the chest acquired. RADIATION DOSE: NA LIMITATIONS: None. FINDINGS: LUNGS AND PLEURA: No opacities, masses or pneumothorax. No pleural effusion. MEDIASTINUM AND HILAR STRUCTURES: No masses. Contour normal. HEART AND VASCULAR STRUCTURES: Heart normal in size. Normal vasculature. BONES: No acute findings. HARDWARE: Sternal wires. OTHER: No other significant finding. IMPRESSION: NO ACUTE RADIOGRAPHIC FINDING IN THE CHEST. TECHNICAL DOCUMENTATION: JOB ID: [id number]
[2016-09-20 22:34] LABS: ALANINE AMINOTRANSFERASE 34 U/L (9-52); ALKALINE PHOSPHATASE 132 U/L (38-126); ANION GAP 17 (5-19); ASPARTATE AMINO TRANSFERASE 24 U/L (14-36); BILIRUBIN,DIRECT 0.4 mg/dL (0.0-0.4); BLOOD UREA NITROGEN 27 mg/dL (7-20); CALCIUM 9.8 mg/dL (8.4-10.2); CARBON DIOXIDE 30 mmol/L (22-30); CHLORIDE 88 mmol/L (98-107); CREATININE RESULT 1.18 mg/dL (0.52-1.25); GLUCOSE 173 mg/dL (75-110); POTASSIUM 3.8 mmol/L (3.6-5.0); SODIUM 134.6 mmol/L (137-145); TOTAL PROTEIN 7.8 g/dL (6.3-8.2)
[2016-09-20 22:41] LABS: CREATINE KINASE < 20 U/L (30-135)
[2016-09-20 22:48] LABS: CREATINE KINASE MB < 0.22 ng/mL (<4.55); TROPONIN I < 0.012 ng/mL
[2016-09-21 00:49] LABS: APPEARANCE,URINE SLIGHTLY-CLOUDY; BILIRUBIN,URINE NEGATIVE (NEGATIVE); GLUCOSE, URINE 50 mg/dL (NEGATIVE); KETONES,URINE NEGATIVE (NEGATIVE); LEUKOCYTE ESTERASE,URINE TRACE (NEGATIVE); NITRITE,URINE NEGATIVE (NEGATIVE); PROTEIN,URINE NEGATIVE (NEGATIVE); URINE SPECIFIC GRAVITY 1.009; UROBILINOGEN,URINE NEGATIVE mg/dL (<2.0)
[2016-09-21] MEDS ORDERED: MORPHINE SULFATE 10 MG/ML INJ IV ONE (06:05)
--- NOTE | 2016-09-21 08:22 | EKG REPORT ---
SEVERITY:- BORDERLINE ECG - SINUS TACHYCARDIA CONSIDER INFERIOR INFARCT : Confirmed by: Karsten Fong MD 21-Sep-2016 08:20:36
[2016-09-21] MEDS ORDERED: GLUCAGON,HUMAN RECOMB 1 MG INJ IM PRN (09:33)
[2016-09-21] MEDS ORDERED: DEXTROSE 50%-WATER SYRINGE 12.5 GM/25 ML DOSE IV PRN (09:33)
[2016-09-21] MEDS ORDERED: DEXTROSE 50%-WATER SYRINGE 25 GM/50 ML DOSE IV PRN (09:33)
[2016-09-21] MEDS ORDERED: DEXTROSE 40% GEL 15 GM TUBE PO PRN (09:33)
[2016-09-21] MEDS ORDERED: DEXTROSE 40% GEL 15 GM TUBE X 2 PO PRN (09:33)
[2016-09-21] MEDS ORDERED: NITROGLYCERIN 0.4 MG/TAB 25 TAB/BOTTLE SL PRN (09:54)
[2016-09-21] MEDS ORDERED: LIDOCAINE HCL 76.5 GM TP PRN (09:54)
[2016-09-21] MEDS ORDERED: (PENDING PHARMACY ID) (Benazepril Hcl [Lotensin] 40 MG) PO SCH (10:00)
[2016-09-21] MEDS ORDERED: MULTIVITAMIN TABLET PO ONE (10:30)
[2016-09-21] MEDS ORDERED: METOPROLOL SUCCINATE 50 MG TAB.SR.24H PO ONE (10:30)
[2016-09-21] MEDS ORDERED: METHYLPREDNISOLONE INJ 125 MG/2 ML SDV IV ONE (10:45)
[2016-09-21 10:46] LABS: CREATINE KINASE MB 0.57 ng/mL (<4.55); TROPONIN I 0.019 ng/mL
[2016-09-21] MEDS: TIOTROPIUM BROMIDE DPI 5 CAP/KIT (18 MCG/CAP) IH SCH (12:07)
[2016-09-21] MEDS: BUDESONIDE/FORMOTEROL 160-4.5 MCG 60 PUFF/6 GM MDI IH SCH ×2 (12:09→22:29)
[2016-09-21] MEDS: ASPIRIN 81 MG TABLET, CHEWABLE PO SCH (12:10)
[2016-09-21] MEDS: CHOLECALCIFEROL (D3) 1,000 UNIT TABLET PO SCH (12:10)
[2016-09-21] MEDS: FUROSEMIDE 20 MG TABLET PO SCH (12:12)
[2016-09-21] MEDS: BENAZEPRIL HCL 20 MG TABLET PO SCH (12:12)
[2016-09-21] MEDS: AMLODIPINE BESYLATE 10 MG TABLET PO SCH (12:12)
[2016-09-21] MEDS: TRIAMCINOLONE ACETONIDE 0.5% CREAM 15 GM TP SCH ×2 (12:13→17:18)
[2016-09-21] MEDS: COLCHICINE 0.6 MG TABLET PO SCH ×2 (12:13→17:17)
[2016-09-21] MEDS: INSULIN LISPRO 100 UNIT/ML 3 ML VIAL SUBCUT PRN ×3 (12:44→23:20)
[2016-09-21 17:45] LABS: CREATINE KINASE MB 0.38 ng/mL (<4.55); TROPONIN I 0.018 ng/mL
--- NOTE | 2016-09-21 18:59 | PDOC PROGRESS REPORT ---
Subjective Progress Note for:: 09/21/16 Physical Exam Vital Signs: Temp Pulse Resp BP Pulse Ox 98.0 F 66 19 103/49 L 99 09/21/16 15:54 09/21/16 15:54 09/21/16 15:54 09/21/16 15:54 09/21/16 15:54 Intake & Output 09/20/16 09/21/16 09/22/16 06:59 06:59 06:59 Intake Total 362 Output Total 400 Balance -38 Weight 50.3 kg Results Laboratory Results: 09/21/16 17:10 Uric Acid 9.7 H 09/21/16 09/21/16 09/21/16 09:50 09:50 17:10 Creatine Kinase < 20 L < 20 L CK-MB (CK-2) 0.57 Troponin I 0.019 09/21/16 17:10 Creatine Kinase CK-MB (CK-2) 0.38 Troponin I 0.018 Impressions: Chest X-Ray 09/20/16 22:15 IMPRESSION: NO ACUTE RADIOGRAPHIC FINDING IN THE CHEST.
[2016-09-21] MEDS ORDERED: (PENDING PHARMACY ID) (Rosuvastatin Calcium [Crestor 20 Mg Tablet] 20 MG) PO SCH (22:00)
[2016-09-21] MEDS: ATORVASTATIN CALCIUM 40 MG TABLET PO SCH (22:28)
[2016-09-21] MEDS: PREGABALIN 50 MG CAPSULE PO SCH (22:28)
--- NOTE | 2016-09-21 22:57 | RADIOLOGY REPORT (SQ) ---
EXAM DESCRIPTION: MRI LT LOWER EXTREMITY WITHOUT COMPLETED DATE/TIME: 09/21/2016 10:19 pm REASON FOR STUDY: osteomyelitis left foot COMPARISON: None. There are no x-rays of the foot for correlation. TECHNIQUE: Multiplanar imaging of the left foot to include T1-weighted and STIR images without contr ast. CONTRAST TYPE AND DOSE: Noncontrast study. RENAL FUNCTION: Noncontrast study. LIMITATIONS: None. FINDINGS: BONE MARROW: There is prominent erosion of the head of the 1st metatarsal with associated soft tissue. There are several areas of abnormal marrow signal in the distal 1st metatarsal with dec reased signal on T1 and increased signal on STIR images. There is mild hallux valgus. There is also a destructive lesion involving the 3rd toe at the DIP joint. This is associated with bony destructi on and soft tissue mass. SOFT TISSUES: No soft tissue abscess or swelling. OTHER: No other significant finding. IMPRESSION: EROSION OF THE HEAD OF THE 1ST METATARSAL WITH ASSOCIATED SOFT TISSUE MASS. FINDINGS CO ULD BE DUE TO GOUT. SIMILAR FINDINGS ARE PRESENT IN THE 3RD TOE. X-RAYS WERE NOT OBTAINED PRIOR TO THE MRI SCAN. CORRELATION WITH X-RAYS OF THE FOOT IS NECESSARY FOR MORE COMPLETE EVALUATION. TECHNICAL DOCUMENTATION: JOB ID: [id number] [employer]- All Rights Reserved
[2016-09-22 02:15] LABS: CREATINE KINASE MB 0.23 ng/mL (<4.55)
[2016-09-22 02:21] LABS: TROPONIN I < 0.012 ng/mL
[2016-09-22] MEDS: INSULIN LISPRO 100 UNIT/ML 3 ML VIAL SUBCUT PRN ×4 (08:17→21:58)
[2016-09-22] MEDS: BUDESONIDE/FORMOTEROL 160-4.5 MCG 60 PUFF/6 GM MDI IH SCH ×2 (11:27→22:01)
[2016-09-22] MEDS: TIOTROPIUM BROMIDE DPI 5 CAP/KIT (18 MCG/CAP) IH SCH (11:28)
[2016-09-22] MEDS: PREGABALIN 50 MG CAPSULE PO SCH ×2 (11:29→21:58)
[2016-09-22] MEDS: ASPIRIN 81 MG TABLET, CHEWABLE PO SCH (11:29)
[2016-09-22] MEDS: MULTIVITAMIN TABLET PO SCH (11:30)
[2016-09-22] MEDS: COLCHICINE 0.6 MG TABLET PO SCH ×2 (11:30→17:22)
[2016-09-22] MEDS: AMLODIPINE BESYLATE 10 MG TABLET PO SCH (11:31)
[2016-09-22] MEDS: BENAZEPRIL HCL 20 MG TABLET PO SCH (11:31)
[2016-09-22] MEDS: FUROSEMIDE 20 MG TABLET PO SCH (11:31)
[2016-09-22] MEDS: CHOLECALCIFEROL (D3) 1,000 UNIT TABLET PO SCH (11:32)
[2016-09-22] MEDS: METOPROLOL SUCCINATE 50 MG TAB.SR.24H PO SCH (11:32)
[2016-09-22] MEDS: TRIAMCINOLONE ACETONIDE 0.5% CREAM 15 GM TP SCH ×2 (11:33→17:22)
[2016-09-22] MEDS ORDERED: SYNJARDY PO SCH (17:00)
--- NOTE | 2016-09-22 18:34 | RADIOLOGY REPORT (SQ) ---
EXAM DESCRIPTION: FOOT LEFT COMPLETE COMPLETED DATE/TIME: 09/22/2016 6:17 pm REASON FOR STUDY: foot pain E08.21 DIABETES DUE TO UNDERLYING CONDITION W DIABETIC NEPHR COMPARISON: None. NUMBER OF VIEWS: Three views. TECHNIQUE: AP, lateral and oblique radiographic images acquired of the left foot. LIMITATIONS: None. FINDINGS: MINERALIZATION: Osteopenia. BONES: Dorsal calcaneal spur. No fracture. There is questionable erosion of the head of 1st metatar idania on the oblique view. JOINTS: No effusions. SOFT TISSUES: Soft tissue swelling over the head of the 1st metatarsal. OTHER: No other significant finding. IMPRESSION: 1. Calcaneal spur. 2. Soft tissue swelling over the head of the 1st metatarsal with possible erosion. Is there any cli nical evidence of or history of gout? Is there clinical concern for osteomyelitis? TECHNICAL DOCUMENTATION: JOB ID: [id number] [employer]- All Rights Reserved
--- NOTE | 2016-09-22 19:09 | PDOC H&P ---
History of Present Illness Admission Date/PCP: 09/21/16 04:35 TAMMIE COSTA MD History of Present Illness: JEREMI GERMAN is a 66 year old female ,she has a history of coronary artery disease,gouty arthropathy she came to the emergency room for evaluation of chest pain and foot pain. The chest pain is atypical in character because of history of coronary artery disease she was admitted for observation. Three sets of cardiac enzymes are negative for acute myocardial infarction. MRI of the left foot was done, showed erosion of the head of the first metatarsal bone with associated soft tissue mass. Past Medical History Cardiac Medical History: Reports: Coronary Artery Disease, Hyperlipidema, Hypertension Pulmonary Medical History: Reports: Asthma, Bronchitis, Chronic Obstructive Pulmonary Disease (COPD), Pneumonia - long time ago, Sleep Apnea Endocrine Medical History: Reports: Diabetes Mellitus Type 2 GI Medical History: Reports: Gastroesophageal Reflux Disease Musculoskeltal Medical History: Reports: Arthritis, Gout Past Surgical History Past Surgical History: Reports: Cardiac Catheterization - 08-08-2013, Section, Coronary Artery Bypass Graft - 4 vessel CABG in 2000 Social History Lives with: Alone Smoking Status: Never Smoker Frequency of Alcohol Use: None Hx Recreational Drug Use: No Drugs: None Hx Prescription Drug Abuse: No - Advance Directive Resuscitation Status: Full Code Family History Family History: Reviewed & Not Pertinent Parental Family History Reviewed: Yes Children Family History Reviewed: Yes Sibling(s) Family History Reviewed.: Yes Medication/Allergy Home Medications: Amlodipine Besylate [Norvasc 10 mg Tablet] 10 mg PO DAILY 09/21/16 Aspirin [Aspirin 81 mg Chewable Tablet] 162 mg PO DAILY 09/21/16 Benazepril HCl [Lotensin] 40 mg PO DAILY 09/21/16 Budesonide/Formoterol Fumarate [Symbicort HFA 160-4.5 mcg Inhaler 6 gm] 2 puff IH Q12 09/21/16 Cholecalciferol (Vitamin D3) [Vitamin D3 1000 Unit Tablet] 1,000 unit PO DAILY 09/21/16 Colchicine [Colchicine 0.6 mg Tablet] 0.6 mg PO BID 09/21/16 Furosemide [Lasix 20 mg Tablet] 20 mg PO DAILY 09/21/16 Lidocaine HCl [Aspercreme] 76.5 gm TP ASDIR PRN 09/21/16 Multivitamin [Multivitamins] 1 each PO DAILY 09/21/16 Nitroglycerin [Nitrostat 0.4 mg (1/150 Gr) Tabs 25/Bottle] 1 tab SL Q5MP PRN Rosuvastatin Calcium [Crestor 20 mg Tablet] 20 mg PO QHS 09/21/16 Tiotropium [place] [Spiriva Handihaler 5 Cap/Kit (18 Mcg/Cap)] 1 cap IH DAILY Triamcinolone Acetonide [Aristocort 0.5% Cream 15 gm] 1 applic TP BID 09/21/16 Allopurinol [Zyloprim 100 mg Tablet] 100 mg PO Q8H #90 tablet 09/22/16 Metoprolol Succinate [Toprol XL 100 mg Tablet] 100 mg PO DAILY #90 tab.sr.24h Allergies/Adverse Reactions: Penicillins Allergy (Verified 08/20/16 13:01) Hives, Dizziness Review of Systems Constitutional: ABSENT: chills, fever(s), headache(s), weight gain, weight loss Eyes: ABSENT: visual disturbances Ears: ABSENT: hearing changes Cardiovascular: PRESENT: chest pain Respiratory: ABSENT: cough, hemoptysis Gastrointestinal: ABSENT: abdominal pain, constipation, diarrhea, hematemesis, hematochezia, nausea, vomiting Genitourinary: ABSENT: dysuria, hematuria Musculoskeletal: PRESENT: joint swelling Integumentary: ABSENT: rash, wounds Neurological: ABSENT: abnormal gait, abnormal speech, confusion, dizziness, focal weakness, syncope Psychiatric: ABSENT: anxiety, depression, homidical ideation, suicidal ideation Endocrine: ABSENT: cold intolerance, heat intolerance, menstrual abnormalities, polydipsia, polyuria Hematologic/Lymphatic: ABSENT: easy bleeding, easy bruising, lymphadenopathy Physical Exam Vital Signs: Temp Pulse Resp BP Pulse Ox 98.0 F 58 L 16 95/43 L 98 09/22/16 15:25 09/22/16 15:25 09/22/16 15:25 09/22/16 15:25 09/22/16 15:25 Intake & Output 09/21/16 09/22/16 09/23/16 06:59 06:59 06:59 Intake Total 562 1147 Output Total 400 Balance 162 1147 Weight 50.3 kg 51.766 kg General appearance: PRESENT: no acute distress, well-developed, well-nourished Head exam: PRESENT: atraumatic, normocephalic Eye exam: PRESENT: conjunctiva pink, EOMI, PERRLA. ABSENT: scleral icterus Ear exam: PRESENT: normal external ear exam Mouth exam: PRESENT: moist, tongue midline Neck exam: PRESENT: full ROM Respiratory exam: PRESENT: clear to auscultation radha Cardiovascular exam: PRESENT: RRR, +S1, +S2 Vascular exam: PRESENT: normal capillary refill GI/Abdominal exam: PRESENT: normal bowel sounds, soft Rectal exam: PRESENT: deferred Musculoskeletal exam: PRESENT: other - There is swelling of the 3rd toe , distally of the left foot Neurological exam: PRESENT: alert, awake, oriented to person, oriented to place , oriented to time, oriented to situation, CN II-XII grossly intact. ABSENT: motor sensory deficit Psychiatric exam: PRESENT: appropriate affect, normal mood. ABSENT: homicidal ideation, suicidal ideation Skin exam: PRESENT: dry, intact, warm. ABSENT: cyanosis, rash Results Laboratory Results: 09/21/16 09/21/16 09/21/16 09:50 09:50 17:10 Creatine Kinase < 20 L < 20 L CK-MB (CK-2) 0.57 Troponin I 0.019 09/21/16 09/22/16 09/22/16 17:10 01:40 01:40 Creatine Kinase < 20 L CK-MB (CK-2) 0.38 0.23 Troponin I 0.018 < 0.012 Impressions: Chest X-Ray 09/20/16 22:15 IMPRESSION: NO ACUTE RADIOGRAPHIC FINDING IN THE CHEST. Lower Extremity MRI 09/21/16 00:00 IMPRESSION: EROSION OF THE HEAD OF THE 1ST METATARSAL WITH ASSOCIATED SOFT TISSUE MASS. FINDINGS COULD BE DUE TO GOUT. SIMILAR FINDINGS ARE PRESENT IN THE 3RD TOE. X-RAYS WERE NOT OBTAINED PRIOR TO THE MRI SCAN. CORRELATION WITH X-RAYS OF THE FOOT IS NECESSARY FOR MORE COMPLETE EVALUATION. Foot X-Ray 09/22/16 00:00 IMPRESSION: 1. Calcaneal spur. 2. Soft tissue swelling over the head of the 1st metatarsal with possible erosion. Is there any clinical evidence of or history of gout? Is there clinical concern for osteomyelitis? Assessment & Plan - Diagnosis (1) Chest pain Qualifiers: Chest pain type: unspecified Qualified Code(s): R07.9 - Chest pain, unspecified Is this a current diagnosis for this admission?: YesPlan: Patient is admitted for observation (2) Acute gouty arthropathy Is this a current diagnosis for this admission?: Yes
--- NOTE | 2016-09-22 19:13 | PDOC DISCHARGE SUMMARY ---
General - Admit/Disc Date/PCP Admission Date/Primary Care Provider: 09/21/16 04:35 TAMMIE COSTA MD Discharge Date: 09/22/16 - Discharge Diagnosis (1) Chest pain Is this a current diagnosis for this admission?: Yes (2) Acute gouty arthropathy Is this a current diagnosis for this admission?: Yes (3) Arteriosclerotic coronary artery disease Is this a current diagnosis for this admission?: Yes (4) Asthma Is this a current diagnosis for this admission?: Yes - Additional Information Resuscitation Status: Full Code Discharge Diet: Diabetic Discharge Activity: Activity As Tolerated Home Medications: Amlodipine Besylate [Norvasc 10 mg Tablet] 10 mg PO DAILY 09/21/16 Aspirin [Aspirin 81 mg Chewable Tablet] 162 mg PO DAILY 09/21/16 Benazepril HCl [Lotensin] 40 mg PO DAILY 09/21/16 Budesonide/Formoterol Fumarate [Symbicort HFA 160-4.5 mcg Inhaler 6 gm] 2 puff IH Q12 09/21/16 Cholecalciferol (Vitamin D3) [Vitamin D3 1000 Unit Tablet] 1,000 unit PO DAILY 09/21/16 Colchicine [Colchicine 0.6 mg Tablet] 0.6 mg PO BID 09/21/16 Furosemide [Lasix 20 mg Tablet] 20 mg PO DAILY 09/21/16 Lidocaine HCl [Aspercreme] 76.5 gm TP ASDIR PRN 09/21/16 Multivitamin [Multivitamins] 1 each PO DAILY 09/21/16 Nitroglycerin [Nitrostat 0.4 mg (1/150 Gr) Tabs 25/Bottle] 1 tab SL Q5MP PRN Rosuvastatin Calcium [Crestor 20 mg Tablet] 20 mg PO QHS 09/21/16 Tiotropium [place] [Spiriva Handihaler 5 Cap/Kit (18 Mcg/Cap)] 1 cap IH DAILY Triamcinolone Acetonide [Aristocort 0.5% Cream 15 gm] 1 applic TP BID 09/21/16 Allopurinol [Zyloprim 100 mg Tablet] 100 mg PO Q8H #90 tablet 09/22/16 Metoprolol Succinate [Toprol XL 100 mg Tablet] 100 mg PO DAILY #90 tab.sr.24h History of Present Illness History of Present Illness: JEREMI GEMRAN is a 66 year old female ,she has a history of coronary artery disease,gouty arthropathy she came to the emergency room for evaluation of chest pain and foot pain. The chest pain is atypical in character because of history of coronary artery disease she was admitted for observation. Three sets of cardiac enzymes are negative for acute myocardial infarction. MRI of the left foot was done, showed erosion of the head of the first metatarsal bone with associated soft tissue mass. Hospital Course Hospital Course: She was admitted for evaluation of chest pain, left foot pain, cardiac enzymes was negative for acute PR. MRI of the left foot was obtained, it showed erosion of the head of the 1st metatarsal bone with associated soft tissue mass. subsequent hospital course was uneventful Physical Exam Vital Signs: Temp Pulse Resp BP Pulse Ox 98.0 F 58 L 16 95/43 L 98 09/22/16 15:25 09/22/16 15:25 09/22/16 15:25 09/22/16 15:25 09/22/16 15:25 Intake & Output 09/21/16 09/22/16 09/23/16 06:59 06:59 06:59 Intake Total 562 1147 Output Total 400 Balance 162 1147 Weight 50.3 kg 51.766 kg General appearance: PRESENT: no acute distress Eye exam: PRESENT: PERRLA Respiratory exam: PRESENT: clear to auscultation radha Cardiovascular exam: PRESENT: +S1, +S2 GI/Abdominal exam: PRESENT: soft Neurological exam: PRESENT: alert Results Laboratory Results: 09/21/16 09/21/16 09/21/16 09:50 09:50 17:10 Creatine Kinase < 20 L < 20 L CK-MB (CK-2) 0.57 Troponin I 0.019 09/21/16 09/22/16 09/22/16 17:10 01:40 01:40 Creatine Kinase < 20 L CK-MB (CK-2) 0.38 0.23 Troponin I 0.018 < 0.012 Impressions: Chest X-Ray 09/20/16 22:15 IMPRESSION: NO ACUTE RADIOGRAPHIC FINDING IN THE CHEST. Lower Extremity MRI 09/21/16 00:00 IMPRESSION: EROSION OF THE HEAD OF THE 1ST METATARSAL WITH ASSOCIATED SOFT TISSUE MASS. FINDINGS COULD BE DUE TO GOUT. SIMILAR FINDINGS ARE PRESENT IN THE 3RD TOE. X-RAYS WERE NOT OBTAINED PRIOR TO THE MRI SCAN. CORRELATION WITH X-RAYS OF THE FOOT IS NECESSARY FOR MORE COMPLETE EVALUATION. Foot X-Ray 09/22/16 00:00 IMPRESSION: 1. Calcaneal spur. 2. Soft tissue swelling over the head of the 1st metatarsal with possible erosion. Is there any clinical evidence of or history of gout? Is there clinical concern for osteomyelitis?
[2016-09-22] MEDS: ATORVASTATIN CALCIUM 40 MG TABLET PO SCH (21:58)
[2016-09-23] MEDS: INSULIN LISPRO 100 UNIT/ML 3 ML VIAL SUBCUT PRN (08:42)
[2016-09-23 08:55] VITALS: BP 129/56
[2016-09-23] MEDS: PREGABALIN 50 MG CAPSULE PO SCH (10:11)
[2016-09-23] MEDS: MULTIVITAMIN TABLET PO SCH (10:12)
[2016-09-23] MEDS: COLCHICINE 0.6 MG TABLET PO SCH (10:12)
[2016-09-23] MEDS: BUDESONIDE/FORMOTEROL 160-4.5 MCG 60 PUFF/6 GM MDI IH SCH (10:12)
[2016-09-23] MEDS: CHOLECALCIFEROL (D3) 1,000 UNIT TABLET PO SCH (10:12)
[2016-09-23] MEDS: ASPIRIN 81 MG TABLET, CHEWABLE PO SCH (10:12)
[2016-09-23] MEDS: TIOTROPIUM BROMIDE DPI 5 CAP/KIT (18 MCG/CAP) IH SCH (10:13)
[2016-09-23] MEDS: TRIAMCINOLONE ACETONIDE 0.5% CREAM 15 GM TP SCH (10:13)
[2016-09-23] MEDS: AMLODIPINE BESYLATE 10 MG TABLET PO SCH (10:14)
[2016-09-23] MEDS: METOPROLOL SUCCINATE 50 MG TAB.SR.24H PO SCH (10:14)
[2016-09-23] MEDS: BENAZEPRIL HCL 20 MG TABLET PO SCH (10:14)
[2016-09-23] MEDS: FUROSEMIDE 20 MG TABLET PO SCH (10:14)
== END 2016-09-23 11:35 | disposition home or self-care (01) ==
LOC: ER 20:14 → EH 09-21 04:35 → 3S 09-21 07:53
PROVIDERS: ADMIT Internal Medicine; ATTEND Internal Medicine
DX: R07.89 Other chest pain (principal); M10.9 Gout, unspecified; I25.10 Atherosclerotic heart disease of native coronary artery without angina pectoris; J45.909 Unspecified asthma, uncomplicated; R00.0 Tachycardia, unspecified; Z79.899 Other long term (current) drug therapy; Z79.82 Long term (current) use of aspirin; Z79.52 Long term (current) use of systemic steroids; Z87.891 Personal history of nicotine dependence; Z95.1 Presence of aortocoronary bypass graft
CPT/HCPCS: 93005; 96376; 99285; 96374; 96375; 36415 ×3; 82553 ×3; 82962 ×3; 82550 ×3; 84550; 85025; 80053; 81001; 84484 ×3; 83036; 73718; 71010; 73630; 93010; G0378 ×3; A9270 ×27; J3490 ×3; J2930; J2270 ×2; J2405; J1815

== ENCOUNTER 2016-10-14 23:20 | Emergency (ER) | payer MEDICARE, MEDICAID ==
--- NOTE | 2016-10-14 23:43 | EKG REPORT ---
SEVERITY:- NORMAL ECG - SINUS RHYTHM : Confirmed by: Karsten Fong MD 14-Oct-2016 23:43:13
[2016-10-15] MEDS ORDERED: ASPIRIN 325 MG TABLET PO ONE (00:40)
--- NOTE | 2016-10-15 00:41 | ER Document Report ---
ED Medical Screen (RME) - General Chief Complaint: Chest Tightness Stated Complaint: CHEST PAIN/TIGHTNESS Time Seen by Provider: 10/15/16 00:36 Notes: 66-year-old female, chief complaint of chest tightness that started in the afternoon, went away, then came back just prior to arrival. Past medical history of CABG, hypertension, hyperlipidemia. Denies shortness of breath, cough, abdominal pain, fever. States it feels like "muscle spasms". TRAVEL OUTSIDE OF THE [place] IN LAST 30 DAYS: No - Related Data Allergies/Adverse Reactions: Penicillins Allergy (Verified 10/15/16 00:07) Hives, Dizziness Past Medical History - Past Medical History Cardiac Medical History: Reports: Hx Atrial Fibrillation, Hx Coronary Artery Disease, Hx Hypercholesterolemia, Hx Hypertension Pulmonary Medical History: Reports: Hx Asthma, Hx Bronchitis, Hx COPD, Hx Pneumonia - long time ago, Hx Sleep Apnea Endocrine Medical History: Reports: Hx Diabetes Mellitus Type 2 Renal/ Medical History: Reports: Hx Renal Insufficiency. Denies: Hx Peritoneal Dialysis GI Medical History: Reports: Hx Gastroesophageal Reflux Disease Musculoskeltal Medical History: Reports Hx Arthritis, Reports Hx Gout Psychiatric Medical History: Denies: Hx Depression Past Surgical History: Reports: Hx Cardiac Catheterization - 08-08-2013, Hx Cardiac Surgery, Hx Section, Hx Coronary Artery Bypass Graft - 4 vessel CABG in 2000 - Immunizations Immunizations up to date: Yes Hx Diphtheria, Pertussis, Tetanus Vaccination: Yes Physical Exam - Vital signs Vitals: Temp Pulse Resp BP Pulse Ox 98.4 F 72 12 153/63 H 97 10/15/16 00:06 10/15/16 00:06 10/15/16 00:06 10/15/16 00:06 10/15/16 00:06 - Respiratory Respiratory status: No respiratory distress Chest status: Tender - Mild tenderness over the bilateral anterior chest wall Breath sounds: Normal. No: Decreased air movement, Wheezing - Cardiovascular Rhythm: Regular. No: Tachycardia, Bradycardia Heart sounds: Normal auscultation, S1 appreciated, S2 appreciated Course - Vital Signs Vital signs: Temp Pulse Resp BP Pulse Ox 98.4 F 72 12 153/63 H 97 10/15/16 00:06 10/15/16 00:06 10/15/16 00:06 10/15/16 00:06 10/15/16 00:06
[2016-10-15] MEDS ORDERED: NITROGLYCERIN 0.4 MG/TAB 25 TAB/BOTTLE SL PRN (02:31)
--- NOTE | 2016-10-15 02:31 | ER Document Report ---
ED Cardiac - General Mode of Arrival: Ambulatory Information source: Patient TRAVEL OUTSIDE OF THE [place] IN LAST 30 DAYS: No <DIANA FORMAN - Last Filed: 10/15/16 03:57> <DAISY ASH - Last Filed: 10/15/16 06:27> - General Chief Complaint: Chest Tightness Stated Complaint: CHEST PAIN/TIGHTNESS Time Seen by Provider: 10/15/16 00:36 Notes: Patient is a 66-year-old female who presents to the emergency department today with complaints of chest tightness. Patient states that this tightness began at noon and at that time it went into her neck. Patient states that she had another episode of tightness this evening with no radiation. Patient states the last time she had pain similar to this she was found to have an elevated potassium. Patient denies any shortness of breath. (DIANA FORMAN) - Related Data Allergies/Adverse Reactions: Penicillins Allergy (Verified 10/15/16 00:07) Hives, Dizziness Past Medical History - General Information source: Patient - Social History Smoking Status: Unknown if Ever Smoked Cigarette use (# per day): No Chew tobacco use (# tins/day): No Frequency of alcohol use: None Drug Abuse: None Lives with: Family Family History: Reviewed & Not Pertinent - Past Medical History Cardiac Medical History: Reports: Hx Atrial Fibrillation, Hx Coronary Artery Disease, Hx Hypercholesterolemia, Hx Hypertension Pulmonary Medical History: Reports: Hx Asthma, Hx Bronchitis, Hx COPD, Hx Pneumonia - long time ago, Hx Sleep Apnea Endocrine Medical History: Reports: Hx Diabetes Mellitus Type 2 Renal/ Medical History: Reports: Hx Renal Insufficiency GI Medical History: Reports: Hx Gastroesophageal Reflux Disease Musculoskeltal Medical History: Reports Hx Arthritis, Reports Hx Gout Past Surgical History: Reports: Hx Cardiac Catheterization - 08-08-2013, Hx Cardiac Surgery, Hx Section, Hx Coronary Artery Bypass Graft - 4 vessel CABG in 2000 - Immunizations Immunizations up to date: Yes Hx Diphtheria, Pertussis, Tetanus Vaccination: Yes Hx Pneumococcal Vaccination: 04/20/14 <DIANA FORMAN - Last Filed: 10/15/16 03:57> Review of Systems - Review of Systems Constitutional: No symptoms reported EENT: No symptoms reported Cardiovascular: See HPI, Other - chest tightness Respiratory: denies: Short of breath Gastrointestinal: No symptoms reported Genitourinary: No symptoms reported Female Genitourinary: No symptoms reported Musculoskeletal: No symptoms reported Skin: No symptoms reported Hematologic/Lymphatic: No symptoms reported Neurological/Psychological: No symptoms reported -: Yes All other systems reviewed and negative <DIANA FORMAN - Last Filed: 10/15/16 03:57> Physical Exam <DIANA FORMAN - Last Filed: 10/15/16 03:57> <DAISY ASH - Last Filed: 10/15/16 06:27> - Vital signs Vitals: Temp Pulse Resp BP Pulse Ox 98.4 F 72 12 153/63 H 97 10/15/16 00:06 10/15/16 00:06 10/15/16 00:06 10/15/16 00:06 10/15/16 00:06 - Notes Notes: PHYSICAL EXAM GENERAL: Alert, interacts well. No acute distress. HEAD: Normocephalic, atraumatic. EYES: Pupils equal, round, and reactive to light. Extraocular movements intact. ENT: Oral mucosa moist, tongue midline. NECK: Full range of motion. Supple. Trachea midline. LUNGS: Clear to auscultation bilaterally, no wheezes, rales, or rhonchi. No respiratory distress. HEART: Regular rate and rhythm. No murmurs, gallops, or rubs. ABDOMEN: Soft, non-tender. Non-distended. Bowel sounds present in all 4 quadrants. EXTREMITIES: Moves all 4 extremities spontaneously. Trace pitting edema to bilateral feet, radial and dorsalis pedis pulses 2/4 bilaterally. No cyanosis. NEUROLOGICAL: Alert and oriented x3. Normal speech. PSYCH: Normal affect, normal mood. SKIN: Warm, dry, normal turgor. No rashes or lesions noted. (DIANA FORMAN) Course - Laboratory Result Diagrams: 10/15/16 02:29 10/15/16 02:29 <DIANA FORMAN - Last Filed: 10/15/16 03:57> - Laboratory Result Diagrams: 10/15/16 02:29 10/15/16 02:29 <DAISY ASH - Last Filed: 10/15/16 06:27> - Re-evaluation Re-evalutation: 10/15/16 06:08 CBC shows anemia with hemoglobin 10.8, no leukocytosis, CMP shows slight renal failure BUN of 17 creatinine 1.19, hyperglycemia with a glucose of 155, cardiac enzymes negative 2, chest x-ray shows left lower lobe pneumonia but recommend radiographic follow-up. EKG is nonischemic. Left lower lobe pneumonia can explain this chest pain, no evidence of active coronary artery disease at this point. Patient will be started on antibiotics and discharged home. (DAISY ASH) - Vital Signs Vital signs: Temp Pulse Resp BP Pulse Ox 98.4 F 72 16 111/53 L 96 10/15/16 00:06 10/15/16 00:06 10/15/16 04:01 10/15/16 04:01 10/15/16 04:01 - Laboratory Laboratory results interpreted by me: 10/15/16 10/15/16 02:29 02:29 RBC 3.67 L Hgb 10.8 L Hct 32.5 L RDW 17.0 H Est GFR ( Amer) 55 L Est GFR (Non-Af Amer) 45 L Glucose 155 H Discharge <DIANA FORMAN - Last Filed: 10/15/16 03:57> <DAISY ASH - Last Filed: 10/15/16 06:27> - Discharge Clinical Impression: Left lower lobe pneumonia Qualifiers: Pneumonia type: due to unspecified organism Qualified Code(s): J18.1 - Lobar pneumonia, unspecified organism Chest pain Qualifiers: Chest pain type: pleurodynia Qualified Code(s): R07.81 - Pleurodynia Condition: Stable Disposition: HOME, SELF-CARE Instructions: Pneumonia ([facility]) Additional Instructions: You have a left lower lobe pneumonia, we did not find any signs of active heart disease today, you will need to have your chest x-ray rechecked in approximately 6 weeks to ensure resolution of the pneumonia. Prescriptions: Azithromycin 250 mg PO DAILY #4 tablet Referrals: TAMMIE COSTA MD [Primary Care Provider] - Follow up in 3-5 days Scribe Attestation: 10/15/16 06:27 I personally performed the services described in the documentation, reviewed and edited the documentation which was dictated to the scribe in my presence, and it accurately records my words and actions. (DAISY ASH) Scribe Documentation - Scribe Written by Scribe:: Noam Argueta, 10/15/2016 0409 acting as scribe for :: Jazlyn <DIANA FORMAN - Last Filed: 10/15/16 03:57>
[2016-10-15 02:38] LABS: ABSOLUTE EOSINOPHILS # (AUTO) 0.1 10^3/uL (0.0-0.6); ABSOLUTE LYMPHOCYTES (AUTO) 1.8 10^3/uL (0.5-4.7); ABSOLUTE MONOCYTES (AUTO) 0.6 10^3/uL (0.1-1.4); ABSOLUTE NEUT (AUTO) 4.3 10^3/uL (1.7-8.2); BASOPHILS % (AUTO) 0.6 % (0-2); EOSINOPHILS % (AUTO) 1.8 % (0-6); HEMATOCRIT 32.5 % (36.0-47.0); HEMOGLOBIN 10.8 g/dL (12.0-15.5); HGB HCT DIFFERENCE -0.1; LYMPHOCYTES % (AUTO) 26.1 % (13-45); MEAN CORPUSCULAR HEMOGLOBIN 29.5 pg (27.0-33.4); MEAN CORPUSCULAR HGB CONC 33.3 g/dL (32.0-36.0); MEAN CORPUSCULAR VOLUME 89 fl (80-97); RED BLOOD COUNT 3.67 10^6/uL (3.72-5.28); SEGMENTED NEUTROPHILS % (AUTO) 62.5 % (42-78); WHITE BLOOD COUNT 6.8 10^3/uL (4.0-10.5)
[2016-10-15 03:06] LABS: ALANINE AMINOTRANSFERASE 31 U/L (9-52); ALBUMIN 3.8 g/dL (3.5-5.0); ALKALINE PHOSPHATASE 107 U/L (38-126); ANION GAP 12 (5-19); ASPARTATE AMINO TRANSFERASE 29 U/L (14-36); BILIRUBIN,DIRECT 0.3 mg/dL (0.0-0.4); BILIRUBIN,TOTAL 0.7 mg/dL (0.2-1.3); BLOOD UREA NITROGEN 17 mg/dL (7-20); CALCIUM 9.4 mg/dL (8.4-10.2); CARBON DIOXIDE 27 mmol/L (22-30); CHLORIDE 103 mmol/L (98-107); CREATINE KINASE 76 U/L (30-135); CREATININE RESULT 1.19 mg/dL (0.52-1.25); GLUCOSE 155 mg/dL (75-110); POTASSIUM 3.7 mmol/L (3.6-5.0); SODIUM 141.6 mmol/L (137-145); TOTAL PROTEIN 6.8 g/dL (6.3-8.2)
[2016-10-15 03:16] LABS: CREATINE KINASE MB 0.28 ng/mL (<4.55)
[2016-10-15 03:18] LABS: TROPONIN I < 0.012 ng/mL
--- NOTE | 2016-10-15 03:40 | RADIOLOGY REPORT (SQ) ---
EXAM DESCRIPTION: CHEST SINGLE VIEW COMPLETED DATE/TIME: 10/15/2016 3:09 am REASON FOR STUDY: chest pain COMPARISON: Chest x-ray 09/20/2016. EXAM PARAMETERS: NUMBER OF VIEWS: One view. TECHNIQUE: Single frontal radiographic view of the chest acquired. RADIATION DOSE: NA LIMITATIONS: Monitoring wires are overlying the patient's chest. FINDINGS: LUNGS AND PLEURA: Airspace opacity at the left lung base. No pneumothorax or pleural effu kelsie. MEDIASTINUM AND HILAR STRUCTURES: No masses. Contour normal. HEART AND VASCULAR STRUCTURES: The heart is mildly enlarged. No overt vascular congestion. BONES: Degenerative changes in the spine. HARDWARE: Sternotomy wires are present. IMPRESSION: Mild cardiomegaly. Airspace opacity at the left lung base, may represent atelectasis or pneumonia. Radiographic followup recommended. TECHNICAL DOCUMENTATION: JOB ID: [id number]
[2016-10-15] MEDS ORDERED: AZITHROMYCIN 250 MG TABLET PO ONE (06:13)
[2016-10-15 06:53] VITALS: BP 114/52
== END 2016-10-15 06:50 | disposition home or self-care (01) ==
LOC: ER 23:20
DX: J18.1 Lobar pneumonia, unspecified organism (principal); R07.81 Pleurodynia; R07.9 Chest pain, unspecified; E87.5 Hyperkalemia
CPT/HCPCS: 99285; 36415; 82553; 82550; 85025; 80053; 84484; 71010; 93005; 93010; A9270 ×2

== ENCOUNTER → 2016-11-07 | Outpatient (CLI) | payer MEDICARE, MEDICAID ==
--- NOTE | 2016-11-07 15:36 | RADIOLOGY REPORT (SQ) ---
EXAM DESCRIPTION: CT CHEST WITHOUT COMPLETED DATE/TIME: 11/07/2016 2:01 pm REASON FOR STUDY: PNEUMONIA J18.9 PNEUMONIA, UNSPECIFIED ORGANISM COMPARISON: CT ANGIO CHEST 12/16/2008, 08/16/2016 CT CHEST WITHOUT CONTRAST 09/09/2014 TECHNIQUE: CT scan performed of the chest without intravenous contrast. Images reviewed with lung, soft tissue and bone windows. Reconstructed coronal and sagittal MPR images reviewed. All images st ored on PACS. All CT scanners at this facility use dose modulation, iterative reconstruction, and/or weight based d osing when appropriate to reduce radiation dose to as low as reasonably achievable (ALARA). [facility]: Dose Right [facility]: CareDose [facility]: Dose Right [facility]: Teradose 4D [facility]: [employer] RADIATION DOSE: Up-to-date CT equipment and radiation dose reduction techniques were employed. CTDIv ol: 6.2 mGy. DLP: 212 mGy-cm. mGy. LIMITATIONS: No technical limitations. FINDINGS: LUNGS AND PLEURA: On axial images 43 through 48, there is narrowing of the bronchus to the superior segment left lower lobe with more distal superior segment left lower lobe bronchiectasis. These changes are also seen on coronal images 56-61 and sagittal images 37-42. These findings are le ss prominent than on studies dating back to 2009. Likely this is a result of old infection/ inflamma tion. Remainder of the lungs demonstrate no focal infiltrates. No pleural effusion. No pneumothorax. No worrisome pulmonary nodules. Remainder of the airways are widely patent. HILAR AND MEDIASTINAL STRUCTURES: No identified masses or abnormal nodes. No obvious aneurysm. HEART AND VASCULAR STRUCTURES: No aneurysm. No pericardial effusion. Very heavy coronary artery nevin cification. Post CABG. UPPER ABDOMEN: No significant findings. Limited exam. THYROID AND OTHER SOFT TISSUES: No masses. No adenopathy. BONES: Diffuse thoracic spondylotic change HARDWARE: Old sternotomy post CABG OTHER: No other significant findings. IMPRESSION: No acute findings. Superior segment left lower lobe bronchus narrowing with more distal bronchiectasis and scarring. Th is is less prominent than on CT from 2008 TECHNICAL DOCUMENTATION: JOB ID: [id number] Quality ID # [id number]: Final reports with documentation of one or more dose reduction techniques (e.g., Au tomated exposure control, adjustment of the mA and/or kV according to patient size, use of iterative reconstruction technique) 2010 [employer]- All Rights Reserved
== END ==
LOC: RAD 13:51
PROVIDERS: ATTEND Internal Medicine
DX: J18.9 Pneumonia, unspecified organism (principal)
CPT/HCPCS: 71250

== ENCOUNTER 2017-02-05 17:54 | Emergency (ER) | payer MEDICARE, MEDICAID ==
[2017-02-05] MEDS ORDERED: ACETAMINOPHEN 325 MG TABLET PO ONE (19:27)
[2017-02-05] MEDS ORDERED: NORMAL SALINE 1000 ML 1,000 ML IV ONE (19:27)
--- NOTE | 2017-02-05 19:29 | ER Document Report ---
ED Medical Screen (RME) - General Chief Complaint: Cold Symptoms Stated Complaint: COUGH,CHEST TIGHTNESS Time Seen by Provider: 02/05/17 19:27 Notes: pt states she recently had her flu shot and her pneumonia shot. Subsequently after that she began have fevers cough cold congestion and ear pain. TRAVEL OUTSIDE OF THE [place] IN LAST 30 DAYS: No - Related Data Allergies/Adverse Reactions: Penicillins Allergy (Verified 02/05/17 18:05) Hives, Dizziness Past Medical History - Social History Frequency of alcohol use: None Drug Abuse: None - Past Medical History Cardiac Medical History: Reports: Hx Atrial Fibrillation, Hx Coronary Artery Disease, Hx Hypercholesterolemia, Hx Hypertension Pulmonary Medical History: Reports: Hx Asthma, Hx Bronchitis, Hx COPD, Hx Pneumonia - long time ago, Hx Sleep Apnea Endocrine Medical History: Reports: Hx Diabetes Mellitus Type 2 Renal/ Medical History: Reports: Hx Renal Insufficiency. Denies: Hx Peritoneal Dialysis GI Medical History: Reports: Hx Gastroesophageal Reflux Disease. Denies: Hx Pancreatitis Musculoskeltal Medical History: Reports Hx Arthritis, Reports Hx Gout Psychiatric Medical History: Denies: Hx Depression Past Surgical History: Reports: Hx Cardiac Catheterization - 08-08-2013, Hx Cardiac Surgery, Hx Section, Hx Coronary Artery Bypass Graft - 4 vessel CABG in 2000 - Immunizations Immunizations up to date: Yes Hx Diphtheria, Pertussis, Tetanus Vaccination: Yes Physical Exam - Vital signs Vitals: Temp Pulse Resp BP Pulse Ox 100.2 F 103 H 18 158/68 H 96 02/05/17 18:03 02/05/17 18:03 02/05/17 18:03 02/05/17 18:03 02/05/17 18:03 Course - Vital Signs Vital signs: Temp Pulse Resp BP Pulse Ox 100.2 F 103 H 18 158/68 H 96 02/05/17 18:03 02/05/17 18:03 02/05/17 18:03 02/05/17 18:03 02/05/17 18:03
--- NOTE | 2017-02-05 20:02 | RADIOLOGY REPORT (SQ) ---
EXAM DESCRIPTION: CHEST PA/LAT COMPLETED DATE/TIME: 02/05/2017 7:53 pm REASON FOR STUDY: cough/fever COMPARISON: August 2015 EXAM PARAMETERS: NUMBER OF VIEWS: two views TECHNIQUE: Digital Frontal and Lateral radiographic views of the chest acquired. RADIATION DOSE: NA LIMITATIONS: none FINDINGS: LUNGS AND PLEURA: No opacities, masses or pneumothorax. No pleural effusion. MEDIASTINUM AND HILAR STRUCTURES: No masses or contour abnormalities. HEART AND VASCULAR STRUCTURES: Heart normal size. No evidence for failure. Vascular calcifications are again identified in the aortic arch. BONES: No acute findings. HARDWARE: Patient is status post median sternotomy. OTHER: No other significant finding. IMPRESSION: NO SIGNIFICANT RADIOGRAPHIC FINDING IN THE CHEST. TECHNICAL DOCUMENTATION: JOB ID: [id number] [employer]- All Rights Reserved
[2017-02-05 20:04] LABS: ABSOLUTE BASOPHILS # (AUTO) 0.1 10^3/uL (0.0-0.2); ABSOLUTE EOSINOPHILS # (AUTO) 0.3 10^3/uL (0.0-0.6); ABSOLUTE LYMPHOCYTES (AUTO) 1.7 10^3/uL (0.5-4.7); ABSOLUTE MONOCYTES (AUTO) 0.9 10^3/uL (0.1-1.4); ABSOLUTE NEUT (AUTO) 6.1 10^3/uL (1.7-8.2); BASOPHILS % (AUTO) 0.6 % (0-2); EOSINOPHILS % (AUTO) 3.5 % (0-6); HEMATOCRIT 37.7 % (36.0-47.0); HEMOGLOBIN 12.6 g/dL (12.0-15.5); HGB HCT DIFFERENCE 0.1; LYMPHOCYTES % (AUTO) 18.8 % (13-45); MEAN CORPUSCULAR HGB CONC 33.4 g/dL (32.0-36.0); MEAN CORPUSCULAR VOLUME 87 fl (80-97); MONOCYTES % (AUTO) 10.3 % (3-13); RED BLOOD COUNT 4.34 10^6/uL (3.72-5.28); RED CELL DISTRIBUTION WIDTH 16.7 % (11.5-14.0); SEGMENTED NEUTROPHILS % (AUTO) 66.8 % (42-78); WHITE BLOOD COUNT 9.2 10^3/uL (4.0-10.5)
[2017-02-05 20:05] LABS: VENOUS BLOOD BASE EXCESS 5.2 mmol/L; VENOUS BLOOD HCO3 31.5 mmol/L (20-32); VENOUS BLOOD PCO2 53.8 mmHg (35-63); VENOUS BLOOD PH 7.39 (7.30-7.42)
[2017-02-05 20:12] LABS: APPEARANCE,URINE CLEAR; BILIRUBIN,URINE NEGATIVE (NEGATIVE); GLUCOSE, URINE >=500 mg/dL (NEGATIVE); KETONES,URINE NEGATIVE (NEGATIVE); LEUKOCYTE ESTERASE,URINE NEGATIVE (NEGATIVE); NITRITE,URINE NEGATIVE (NEGATIVE); PROTEIN,URINE NEGATIVE (NEGATIVE); URINE SPECIFIC GRAVITY 1.018; UROBILINOGEN,URINE NEGATIVE mg/dL (<2.0)
[2017-02-05 20:26] LABS: ALBUMIN 5.2 g/dL (3.5-5.0); ANION GAP 16 (5-19); BLOOD UREA NITROGEN 30 mg/dL (7-20); CALCIUM 10.7 mg/dL (8.4-10.2); CARBON DIOXIDE 31 mmol/L (22-30); CHLORIDE 96 mmol/L (98-107); CREATININE RESULT 1.26 mg/dL (0.52-1.25); GLUCOSE 112 mg/dL (75-110); POTASSIUM 3.7 mmol/L (3.6-5.0); SODIUM 142.7 mmol/L (137-145); TOTAL PROTEIN 8.7 g/dL (6.3-8.2)
[2017-02-05 20:27] LABS: ALANINE AMINOTRANSFERASE 36 U/L (9-52); ALKALINE PHOSPHATASE 123 U/L (38-126); ASPARTATE AMINO TRANSFERASE 35 U/L (14-36); BILIRUBIN,DIRECT 0.5 mg/dL (0.0-0.4); BILIRUBIN,TOTAL 0.7 mg/dL (0.2-1.3)
[2017-02-05] MEDS ORDERED: BENZONATATE 100 MG CAPSULE PO ONE (21:59)
--- NOTE | 2017-02-05 22:02 | ER Document Report ---
ED General - General Chief Complaint: Cold Symptoms Stated Complaint: COUGH,CHEST TIGHTNESS Time Seen by Provider: 02/05/17 19:27 Notes: Patient is a 66-year-old female with a past medical history of hypertension, asthma, who presents with 1 week of cough, nasal congestion, and intermittent wheezing. Patient reports that her coughing became more severe today and she recorded a temperature of 100.0F which prompted her to come to the emergency department for further evaluation. She has been trying her albuterol nebulizer at home with moderate improvement of her symptoms. Nothing worsens her symptoms. She states this feels similar to when she has had bronchitis in the past. She has not seen her primary doctor regarding today's concerns. She denies any vomiting, diarrhea, headache, neck pain or altered mental status. She does state that sometimes when she coughs vigorously she does develop a brief sharp, diffuse chest wall discomfort that resolves within several minutes of the episode of coughing discontinuing. TRAVEL OUTSIDE OF THE [place] IN LAST 30 DAYS: No - Related Data Allergies/Adverse Reactions: Penicillins Allergy (Verified 02/05/17 18:05) Hives, Dizziness Past Medical History - General Information source: Patient - Social History Smoking Status: Never Smoker Frequency of alcohol use: None Drug Abuse: None Family History: Reviewed & Not Pertinent Patient has suicidal ideation: No Patient has homicidal ideation: No - Past Medical History Cardiac Medical History: Reports: Hx Atrial Fibrillation, Hx Coronary Artery Disease, Hx Hypercholesterolemia, Hx Hypertension Pulmonary Medical History: Reports: Hx Asthma, Hx Bronchitis, Hx COPD, Hx Pneumonia - long time ago, Hx Sleep Apnea Endocrine Medical History: Reports: Hx Diabetes Mellitus Type 2 Renal/ Medical History: Reports: Hx Renal Insufficiency. Denies: Hx Peritoneal Dialysis GI Medical History: Reports: Hx Gastroesophageal Reflux Disease. Denies: Hx Pancreatitis Musculoskeltal Medical History: Reports Hx Arthritis, Reports Hx Gout Psychiatric Medical History: Denies: Hx Depression Past Surgical History: Reports: Hx Cardiac Catheterization - 08-08-2013, Hx Cardiac Surgery, Hx Section, Hx Coronary Artery Bypass Graft - 4 vessel CABG in 2000 - Immunizations Immunizations up to date: Yes Hx Diphtheria, Pertussis, Tetanus Vaccination: Yes Hx Pneumococcal Vaccination: 04/20/14 Review of Systems - Review of Systems Notes: Constitutional: Negative for fever. HENT: Negative for sore throat. Eyes: Negative for visual changes. Cardiovascular: Negative for chest pain. Respiratory: Positive for cough Gastrointestinal: Negative for abdominal pain, vomiting or diarrhea. Genitourinary: Negative for dysuria. Musculoskeletal: Negative for back pain. Skin: Negative for rash. Neurological: Negative for headaches, weakness or numbness. 10 point ROS negative except as marked above and in HPI. Physical Exam - Vital signs Vitals: Temp Pulse Resp BP Pulse Ox 100.2 F 103 H 18 158/68 H 96 02/05/17 18:03 02/05/17 18:03 02/05/17 18:03 02/05/17 18:03 02/05/17 18:03 Interpretation: Tachycardic Notes: PHYSICAL EXAMINATION: GENERAL: Well-appearing, well-nourished and in no acute distress. HEAD: Atraumatic, normocephalic. EYES: Pupils equal round and reactive to light, extraocular movements intact, sclera anicteric, conjunctiva are normal. ENT: nares patent, oropharynx clear without exudates. Moist mucous membranes. NECK: Normal range of motion, supple without lymphadenopathy LUNGS: Breath sounds clear to auscultation bilaterally and equal. No wheezes rales or rhonchi. HEART: Regular rate and rhythm without murmurs ABDOMEN: Soft, nontender, normoactive bowel sounds. No guarding, no rebound. No masses appreciated. EXTREMITIES: Normal range of motion, no pitting or edema. No cyanosis. NEUROLOGICAL: No focal neurological deficits. Moves all extremities spontaneously and on command. PSYCH: Normal mood, normal affect. SKIN: Warm, Dry, normal turgor, no rashes or lesions noted. Course - Re-evaluation Re-evalutation: 02/05/17 21:58 Patient presents with a clinical history and exam most consistent with an acute viral bronchitis. Patient is overall well in appearance without tachypnea, hypoxemia, tachycardia, or difficulty with ambulation. Breath sounds are clear bilaterally. No fever. Patient does have additional signs of upper respiratory infection including nasal congestion, sore throat, and sinus pressure. Labs unremarkable, chest x-ray is clear. Will treat with bronchodilators and Tessalon Perles. At this time will discharge with return precautions and follow-up recommendations. Verbal discharge instructions given a the bedside and opportunity for questions given. Medication warnings reviewed. Patient is in agreement with this plan and has verbalized understanding of return precautions and the need for primary care follow-up in the next 24-72 hours. 02/05/17 22:00 - Vital Signs Vital signs: Temp Pulse Resp BP Pulse Ox 99.9 F 98 18 138/53 H 96 02/05/17 22:42 02/05/17 22:42 02/05/17 22:42 02/05/17 22:42 02/05/17 22:42 - Laboratory Result Diagrams: 02/05/17 19:45 02/05/17 19:45 Laboratory results interpreted by me: 02/05/17 02/05/17 02/05/17 19:45 19:45 19:45 RDW 16.7 H Chloride 96 L Carbon Dioxide 31 H BUN 30 H Creatinine 1.26 H Est GFR ( Amer) 51 L Est GFR (Non-Af Amer) 42 L Glucose 112 H Calcium 10.7 H Direct Bilirubin 0.5 H Total Protein 8.7 H Albumin 5.2 H Urine Glucose (UA) >=500 H - Diagnostic Test Radiology reviewed: Image reviewed, Reports reviewed Radiology results interpreted by me: 02/05/17 21:59 Chest x-ray: No acute infiltrate or pneumothorax Discharge - Discharge Clinical Impression: Bronchitis Condition: Good Disposition: HOME, SELF-CARE Additional Instructions: You were seen for symptoms most consistent with bronchitis. This can take up to 12 weeks to fully resolve. This is generally due to a viral infection. Please follow-up with your primary doctor in the next 2-3 days. Return if you develop worsening cough, vomiting, fever >100.4, pass out, begin coughing blood, or have any other symptoms that are concerning to you. Please use the medications prescribed today as directed. Prescriptions: Benzonatate [Tessalon Perles 100 mg Capsule] 100 mg PO Q8HP PRN #40 capsule PRN Reason: Albuterol Sulfate [Albuterol Sulfate 5mg/1 mL] 5 mg PO Q4 PRN #20 ml PRN Reason: Referrals: TAMMIE COSTA MD [Primary Care Provider] - Follow up as needed
[2017-02-05 22:43] VITALS: BP 138/53
== END 2017-02-05 22:52 | disposition home or self-care (01) ==
LOC: ER 17:54
DX: J40 Bronchitis, not specified as acute or chronic (principal); R07.89 Other chest pain; I10 Essential (primary) hypertension; I48.91 Unspecified atrial fibrillation; I25.10 Atherosclerotic heart disease of native coronary artery without angina pectoris; E78.00 Pure hypercholesterolemia, unspecified; E11.9 Type 2 diabetes mellitus without complications; Z88.0 Allergy status to penicillin; Z95.1 Presence of aortocoronary bypass graft
CPT/HCPCS: 99283; 96360; 36415; 87040; 87086; 85025; 80053; 81001; 82803; 83605; 87804; 71020; A9270; J7030

== ENCOUNTER 2017-05-01 12:41 | Observation (INO) | payer MEDICARE, MEDICAID ==
[2017-05-01] MEDS: NORMAL SALINE 1000 ML 1,000 ML IV PRN (15:53)
[2017-05-01 16:01] LABS: ABSOLUTE BASOPHILS # (AUTO) 0.1 10^3/uL (0.0-0.2); ABSOLUTE LYMPHOCYTES (AUTO) 2.1 10^3/uL (0.5-4.7); ABSOLUTE MONOCYTES (AUTO) 0.9 10^3/uL (0.1-1.4); ABSOLUTE NEUT (AUTO) 3.2 10^3/uL (1.7-8.2); EOSINOPHILS % (AUTO) 0.4 % (0-6); HEMATOCRIT 38.7 % (36.0-47.0); HEMOGLOBIN 12.8 g/dL (12.0-15.5); LYMPHOCYTES % (AUTO) 33.2 % (13-45); MEAN CORPUSCULAR HEMOGLOBIN 29.4 pg (27.0-33.4); MEAN CORPUSCULAR HGB CONC 33.2 g/dL (32.0-36.0); MEAN CORPUSCULAR VOLUME 89 fl (80-97); MONOCYTES % (AUTO) 13.9 % (3-13); PLATELET COUNT 127 10^3/uL (150-450); RED BLOOD COUNT 4.37 10^6/uL (3.72-5.28); RED CELL DISTRIBUTION WIDTH 18.4 % (11.5-14.0); SEGMENTED NEUTROPHILS % (AUTO) 51.5 % (42-78); TOTAL CELLS COUNTED % (AUTO) 100 %; WHITE BLOOD COUNT 6.3 10^3/uL (4.0-10.5)
[2017-05-01 16:21] LABS: ALANINE AMINOTRANSFERASE 686 U/L (9-52); ALBUMIN 4.7 g/dL (3.5-5.0); ALKALINE PHOSPHATASE 225 U/L (38-126); ANION GAP 16 (5-19); ASPARTATE AMINO TRANSFERASE 553 U/L (14-36); BILIRUBIN,DIRECT 0.8 mg/dL (0.0-0.4); BILIRUBIN,TOTAL 1.4 mg/dL (0.2-1.3); BLOOD UREA NITROGEN 35 mg/dL (7-20); CARBON DIOXIDE 27 mmol/L (22-30); CHLORIDE 95 mmol/L (98-107); GLUCOSE 100 mg/dL (75-110); POTASSIUM 3.6 mmol/L (3.6-5.0); SODIUM 137.8 mmol/L (137-145); TOTAL PROTEIN 7.5 g/dL (6.3-8.2)
--- NOTE | 2017-05-01 16:23 | RADIOLOGY REPORT (SQ) ---
EXAM DESCRIPTION: CT ABD/PELVIS ORAL ONLY COMPLETED DATE/TIME: 05/01/2017 4:01 pm REASON FOR STUDY: obstructive jaundice, WHIT R17 UNSPECIFIED JAUNDICE COMPARISON: None. TECHNIQUE: CT scan of the abdomen and pelvis performed without intravenous or oral contrast. Images reviewed with lung, soft tissue, and bone windows. Reconstructed coronal and sagittal MPR images revi ewed. All images stored on PACS. All CT scanners at this facility use dose modulation, iterative reconstruction, and/or weight based d osing when appropriate to reduce radiation dose to as low as reasonably achievable (ALARA). [facility]: Dose Right [facility]: CareDose [facility]: Dose Right [facility]: Teradose 4D [facility]: Smart [employer] RADIATION DOSE: CT Rad equipment meets quality standard of care and radiation dose reduction techniq ues were employed. CTDIvol: 3.2 mGy. DLP: 151 mGy-cm.mGy. LIMITATIONS: None. FINDINGS: LOWER CHEST: No significant findings. No nodules or infiltrates. NON-CONTRASTED LIVER, SPLEEN, ADRENALS: Evaluation limited by lack of IV contrast. No identified sign ificant masses. PANCREAS: No masses. No peripancreatic inflammatory changes. GALLBLADDER: No identified stones by CT criteria. No inflammatory changes to suggest cholecystitis. RIGHT KIDNEY AND URETER: No suspicious masses. Assessment limited by lack of IV contrast. No signif icant calcifications. No hydronephrosis or hydroureter. LEFT KIDNEY AND URETER: No suspicious masses. Assessment limited by lack of IV contrast. No signifi cant calcifications. No hydronephrosis or hydroureter. AORTA AND RETROPERITONEUM: No aneurysm. No retroperitoneal masses or adenopathy. BOWEL AND PERITONEAL CAVITY: No obvious masses or inflammatory changes. No free fluid. APPENDIX: Not visualized. PELVIS, BLADDER, AND ABDOMINAL WALL:No abnormal masses. No free fluid. Bladder normal. BONES: No significant findings. OTHER: No other significant finding. IMPRESSION: NO SIGNIFICANT OR ACUTE PROCESS IN THE ABDOMEN OR PELVIS. COMMENT: Quality ID # [id number]: Final reports with documentation of one or more dose reduction techniques (e.g., Automated exposure control, adjustment of the mA and/or kV according to patient size, use of iterative reconstruction technique) TECHNICAL DOCUMENTATION: JOB ID: [id number] [employer]- All Rights Reserved
[2017-05-01 19:11] LABS: APPEARANCE,URINE CLEAR; BILIRUBIN,URINE NEGATIVE (NEGATIVE); COLOR,URINE STRAW; GLUCOSE, URINE >=500 mg/dL (NEGATIVE); KETONES,URINE NEGATIVE (NEGATIVE); LEUKOCYTE ESTERASE,URINE SMALL (NEGATIVE); NITRITE,URINE NEGATIVE (NEGATIVE); PROTEIN,URINE NEGATIVE (NEGATIVE); URINE SPECIFIC GRAVITY 1.001; UROBILINOGEN,URINE NEGATIVE mg/dL (<2.0)
--- NOTE | 2017-05-01 22:24 | PDOC H&P ---
History of Present Illness Admission Date/PCP: 05/01/17 12:45 TAMMIE COSTA MD History of Present Illness: JEREMI GERMAN is a 66 year female, She was admitted directly from the office into the hospital for evaluation of acute kidney injury, severely elevated aminotransferases, alkaline phosphatase and bilirubin. She was seen in the office on 04/27/2017 when she came to the office for evaluation of diarrhea and cough she told me that she had diarrhea for 4 days part of the evaluation in the office included blood work and stool collection for Clostridium difficile toxin. She was empirically started on Flagyl for Clostridium difficile toxinemia. Attempt was made to reach patient regarding the abnormal blood work without success until today, because of the logistic problems it was felt that she is better managed inpatient for evaluation of the acute kidney injury. The serum creatinine was 3.15, on admission the serum creatinine was normal but her liver enzymes were grossly elevated Past Medical History Cardiac Medical History: Reports: Coronary Artery Disease, Hypertension Pulmonary Medical History: Reports: Asthma, Bronchitis, Chronic Obstructive Pulmonary Disease (COPD), Pneumonia - long time ago, Sleep Apnea Endocrine Medical History: Reports: Diabetes Mellitus Type 2 GI Medical History: Reports: Gastroesophageal Reflux Disease Musculoskeltal Medical History: Reports: Arthritis, Gout Past Surgical History Past Surgical History: Reports: Cardiac Catheterization - 08-08-2013, Section, Coronary Artery Bypass Graft - 4 vessel CABG in 2000 Social History Smoking Status: Never Smoker Frequency of Alcohol Use: None Hx Recreational Drug Use: No Drugs: None Hx Prescription Drug Abuse: No Family History Family History: Reviewed & Not Pertinent Parental Family History Reviewed: Yes Children Family History Reviewed: Yes Sibling(s) Family History Reviewed.: Yes Medication/Allergy Home Medications: Amlodipine Besylate [Norvasc 10 mg Tablet] 10 mg PO DAILY 05/01/17 Aspirin [Aspirin EC] 81 mg PO DAILY 05/01/17 Benazepril HCl [Lotensin] 40 mg PO DAILY 05/01/17 Budesonide/Formoterol Fumarate [Symbicort 160-4.5 Mcg Inhaler] 2 puff IH Q12 Chlorthalidone [Chlorthalidone 25 mg Tablet] 25 mg PO DAILY 05/01/17 Cholecalciferol (Vitamin D3) [Vitamin D3] 1,000 unit PO DAILY 05/01/17 Colchicine [Colcrys 0.6 mg Tablet] 0.6 mg PO BID 05/01/17 Cyclobenzaprine HCl [Flexeril 10 mg Tablet] 10 mg PO TID 05/01/17 Empagliflozin/Metformin HCl [Synjardy 12.5-500 mg Tablet] 1 tab PO BID 05/01/17 Lesinurad/Allopurinol [Duzallo 200-300 mg Tablet] 1 tab PO DAILY 05/01/17 Metoprolol Succinate [Toprol XL 100 mg Tablet] 100 mg PO DAILY 05/01/17 Metronidazole [Flagyl 500 mg Tablet] 500 mg PO Q8HP PRN 05/01/17 Multivit with Minerals/Lutein [Vitrum Senior Tablet] 1 tab PO DAILY 05/01/17 Multivitamin [Daily Multiple Vitamin] 1 tab PO DAILY 05/01/17 Pravastatin Sodium [Pravachol] 80 mg PO DAILY 05/01/17 Allergies/Adverse Reactions: Penicillins Allergy (Verified 05/01/17 13:08) Hives, Dizziness Review of Systems Constitutional: ABSENT: chills, fever(s), headache(s), weight gain, weight loss Eyes: ABSENT: visual disturbances Ears: ABSENT: hearing changes Cardiovascular: ABSENT: chest pain, dyspnea on exertion, edema, orthropnea, palpitations Respiratory: ABSENT: cough, hemoptysis Gastrointestinal: PRESENT: diarrhea Genitourinary: ABSENT: dysuria, hematuria Musculoskeletal: ABSENT: joint swelling Integumentary: ABSENT: rash, wounds Neurological: ABSENT: abnormal gait, abnormal speech, confusion, dizziness, focal weakness, syncope Psychiatric: ABSENT: anxiety, depression, homidical ideation, suicidal ideation Endocrine: ABSENT: cold intolerance, heat intolerance, menstrual abnormalities, polydipsia, polyuria Hematologic/Lymphatic: ABSENT: easy bleeding, easy bruising, lymphadenopathy Physical Exam Vital Signs: Temp Pulse Resp BP Pulse Ox 98.7 F 71 16 165/63 H 99 05/01/17 19:45 05/01/17 19:45 05/01/17 19:45 05/01/17 19:45 05/01/17 19:45 Intake & Output 04/30/17 05/01/17 05/02/17 06:59 06:59 06:59 Intake Total 450 Balance 450 Weight 47.54 kg General appearance: PRESENT: no acute distress, well-developed, well-nourished Head exam: PRESENT: atraumatic, normocephalic Eye exam: PRESENT: conjunctiva pink, EOMI, PERRLA Ear exam: PRESENT: normal external ear exam Mouth exam: PRESENT: moist, tongue midline Neck exam: PRESENT: full ROM Respiratory exam: PRESENT: clear to auscultation radha Cardiovascular exam: PRESENT: RRR, +S1, +S2 Vascular exam: PRESENT: normal capillary refill GI/Abdominal exam: PRESENT: normal bowel sounds, soft Rectal exam: PRESENT: deferred Neurological exam: PRESENT: alert, CN II-XII grossly intact Psychiatric exam: PRESENT: appropriate affect, normal mood Skin exam: PRESENT: dry, intact, warm Results Laboratory Results: 05/01/17 15:25 05/01/17 15:25 05/01/17 05/01/17 05/01/17 15:25 15:25 18:45 WBC 6.3 RBC 4.37 Hgb 12.8 Hct 38.7 MCV 89 MCH 29.4 MCHC 33.2 RDW 18.4 H Plt Count 127 L Seg Neutrophils % 51.5 Lymphocytes % 33.2 Monocytes % 13.9 H Eosinophils % 0.4 Basophils % 1.0 Absolute Neutrophils 3.2 Absolute Lymphocytes 2.1 Absolute Monocytes 0.9 Absolute Eosinophils 0.0 Absolute Basophils 0.1 Sodium 137.8 Potassium 3.6 Chloride 95 L Carbon Dioxide 27 Anion Gap 16 BUN 35 H Creatinine 1.25 Est GFR ( Amer) 52 L Est GFR (Non-Af Amer) 43 L Glucose 100 Calcium 10.0 Total Bilirubin 1.4 H AST 553 H ALT 686 H Alkaline Phosphatase 225 H Total Protein 7.5 Albumin 4.7 Urine Color STRAW Urine Appearance CLEAR Urine pH 5.0 Ur Specific [place] 1.001 Urine Protein NEGATIVE Urine Glucose (UA) >=500 H Urine Ketones NEGATIVE Urine Blood SMALL H Urine Nitrite NEGATIVE Ur Leukocyte Esterase SMALL H Urine WBC (Auto) 9 Urine RBC (Auto) 2 Impressions: Abdomen/Pelvis CT 05/01/17 00:00 IMPRESSION: NO SIGNIFICANT OR ACUTE PROCESS IN THE ABDOMEN OR PELVIS. Assessment & Plan - Diagnosis (1) Abnormal results of liver function studies Is this a current diagnosis for this admission?: Yes Plan: CT scan of the abdomen and pelvis with oral contrast was done, it was negative, the differential diagnosis includes, statin induced liver disease, hepatitis. She is admitted for observation and management
[2017-05-01] MEDS ORDERED: METRONIDAZOLE 500 MG TABLET PO PRN (22:27)
[2017-05-01] MEDS ORDERED: NORMAL SALINE 1000 ML 1,000 ML IV PRN (22:28)
[2017-05-01] MEDS ORDERED: ALLOPURINOL PO SCH (22:30)
[2017-05-01] MEDS ORDERED: EMPAGLIFLOZIN PO SCH (22:30)
[2017-05-01] MEDS ORDERED: METFORMIN HCL PO SCH (22:30)
[2017-05-01] MEDS ORDERED: [UNRECOGNIZED DRUG - OTHER] PO SCH (22:30)
[2017-05-01] MEDS ORDERED: AMLODIPINE BESYLATE 10 MG TABLET PO ONE (23:00)
[2017-05-01] MEDS ORDERED: BENAZEPRIL HCL 20 MG TABLET PO ONE (23:00)
[2017-05-01] MEDS ORDERED: CHOLECALCIFEROL (D3) 1,000 UNIT TABLET PO ONE (23:15)
[2017-05-01] MEDS ORDERED: BUDESONIDE/FORMOTEROL 160-4.5 MCG 60 PUFF/6 GM MDI IH ONE (23:15)
[2017-05-01] MEDS ORDERED: METOPROLOL SUCCINATE 50 MG TAB.SR.24H PO ONE (23:15)
[2017-05-01] MEDS ORDERED: CYCLOBENZAPRINE HCL 10 MG TABLET PO ONE (23:15)
[2017-05-01] MEDS ORDERED: COLCHICINE 0.6 MG TABLET PO ONE (23:15)
[2017-05-02] MEDS ORDERED: BUDESONIDE/FORMOTEROL 160-4.5 MCG 60 PUFF/6 GM MDI IH ONE (01:36)
[2017-05-02] MEDS: NORMAL SALINE 1000 ML 1,000 ML IV PRN (01:44)
[2017-05-02] MEDS ORDERED: BENAZEPRIL HCL 20 MG TABLET PO SCH (10:00)
[2017-05-02] MEDS ORDERED: CHLORTHALIDONE 25 MG TABLET PO SCH (10:00)
[2017-05-02] MEDS ORDERED: BUDESONIDE/FORMOTEROL 160-4.5 MCG 60 PUFF/6 GM MDI IH SCH (10:00)
[2017-05-02] MEDS ORDERED: ASPIRIN 81 MG TABLET, ENT COATED PO SCH (10:00)
[2017-05-02] MEDS ORDERED: MULTIVITAMIN TABLET PO SCH (10:00)
[2017-05-02] MEDS ORDERED: AMLODIPINE BESYLATE 10 MG TABLET PO SCH (10:00)
[2017-05-02] MEDS ORDERED: METOPROLOL SUCCINATE 50 MG TAB.SR.24H PO SCH (10:00)
[2017-05-02] MEDS ORDERED: CHOLECALCIFEROL (D3) 1,000 UNIT TABLET PO SCH (10:00)
[2017-05-02] MEDS: COLCHICINE 0.6 MG TABLET PO SCH ×2 (10:38→17:34)
[2017-05-02 11:58] LABS: HEMATOCRIT 31.7 % (36.0-47.0); MEAN CORPUSCULAR HEMOGLOBIN 29.6 pg (27.0-33.4); MEAN CORPUSCULAR HGB CONC 33.4 g/dL (32.0-36.0); MEAN CORPUSCULAR VOLUME 88 fl (80-97); PLATELET COUNT 135 10^3/uL (150-450); RED BLOOD COUNT 3.58 10^6/uL (3.72-5.28); RED CELL DISTRIBUTION WIDTH 18.2 % (11.5-14.0)
[2017-05-02 12:09] LABS: HEMOGLOBIN 10.6 g/dL (12.0-15.5)
[2017-05-02 12:16] LABS: ALANINE AMINOTRANSFERASE 483 U/L (9-52); ALBUMIN 3.4 g/dL (3.5-5.0); ALKALINE PHOSPHATASE 156 U/L (38-126); ANION GAP 10 (5-19); ASPARTATE AMINO TRANSFERASE 336 U/L (14-36); BILIRUBIN,DIRECT 0.5 mg/dL (0.0-0.4); BILIRUBIN,TOTAL 0.9 mg/dL (0.2-1.3); BLOOD UREA NITROGEN 28 mg/dL (7-20); CALCIUM 9.1 mg/dL (8.4-10.2); CARBON DIOXIDE 27 mmol/L (22-30); CHLORIDE 102 mmol/L (98-107); GLUCOSE 153 mg/dL (75-110); POTASSIUM 3.3 mmol/L (3.6-5.0); SODIUM 139.4 mmol/L (137-145); TOTAL PROTEIN 5.7 g/dL (6.3-8.2)
[2017-05-02] MEDS ORDERED: CYCLOBENZAPRINE HCL 10 MG TABLET PO SCH (14:00)
[2017-05-02] MEDS ORDERED: POTASSIUM CHLORIDE 10 MEQ TABLET.SA PO ONE (15:00)
--- NOTE | 2017-05-02 16:49 | PDOC DISCHARGE SUMMARY ---
General - Admit/Disc Date/PCP Admission Date/Primary Care Provider: 05/01/17 12:45 TAMMIE COSTA MD Discharge Date: 05/02/17 - Discharge Diagnosis (1) Abnormal results of liver function studies Is this a current diagnosis for this admission?: Yes (2) Arteriosclerotic coronary artery disease Is this a current diagnosis for this admission?: Yes - Additional Information Discharge Diet: Diabetic Discharge Activity: Activity As Tolerated Home Medications: Amlodipine Besylate [Norvasc 10 mg Tablet] 10 mg PO DAILY 05/01/17 Aspirin [Aspirin EC] 81 mg PO DAILY 05/01/17 Benazepril HCl [Lotensin] 40 mg PO DAILY 05/01/17 Budesonide/Formoterol Fumarate [Symbicort 160-4.5 Mcg Inhaler] 2 puff IH Q12 Chlorthalidone [Chlorthalidone 25 mg Tablet] 25 mg PO DAILY 05/01/17 Cholecalciferol (Vitamin D3) [Vitamin D3] 1,000 unit PO DAILY 05/01/17 Colchicine [Colcrys 0.6 mg Tablet] 0.6 mg PO BID 05/01/17 Cyclobenzaprine HCl [Flexeril 10 mg Tablet] 10 mg PO TID 05/01/17 Empagliflozin/Metformin HCl [Synjardy 12.5-500 mg Tablet] 1 tab PO BID 05/01/17 Lesinurad/Allopurinol [Duzallo 200-300 mg Tablet] 1 tab PO DAILY 05/01/17 Metoprolol Succinate [Toprol XL 100 mg Tablet] 100 mg PO DAILY 05/01/17 Metronidazole [Flagyl 500 mg Tablet] 500 mg PO Q8HP PRN 05/01/17 Multivit with Minerals/Lutein [Vitrum Senior Tablet] 1 tab PO DAILY 05/01/17 Multivitamin [Daily Multiple Vitamin] 1 tab PO DAILY 05/01/17 History of Present Illness History of Present Illness: JEREMI GERMAN is a 66 year female, She was admitted directly from the office into the hospital for evaluation of acute kidney injury, severely elevated aminotransferases, alkaline phosphatase and bilirubin. She was seen in the office on 04/27/2017 when she came to the office for evaluation of diarrhea and cough she told me that she had diarrhea for 4 days part of the evaluation in the office included blood work and stool collection for Clostridium difficile toxin. She was empirically started on Flagyl for Clostridium difficile toxinemia. Attempt was made to reach patient regarding the abnormal blood work without success until today, because of the logistic problems it was felt that she is better managed inpatient for evaluation of the acute kidney injury. The serum creatinine was 3.15, on admission the serum creatinine was normal but her liver enzymes were grossly elevated Hospital Course Hospital Course: Patient was admitted for evaluation of elevated liver enzymes and abnormal serum creatinine. She had outpatient lab work, the serum creatinine was 3 and the liver enzymes were severely elevated . She was treated with IV fluid, the pravastatin was held the liver enzymes improve, hepatitis panel was ordered result pending the liver enzymes are improving as well suggesting that the elevated liver enzymes is probably from statin therapy, she be discharged home today she was brought in for observation. Physical Exam Vital Signs: Temp Pulse Resp BP Pulse Ox 97.6 F 54 L 16 99/45 L 98 05/02/17 14:50 05/02/17 14:50 05/02/17 14:50 05/02/17 14:50 05/02/17 14:50 Intake & Output 05/01/17 05/02/17 05/03/17 06:59 06:59 06:59 Intake Total 1629 350 Balance 1629 350 Weight 46.2 kg General appearance: PRESENT: no acute distress, well-developed, well-nourished Head exam: PRESENT: atraumatic, normocephalic Eye exam: PRESENT: conjunctiva pink, EOMI, PERRLA Ear exam: PRESENT: normal external ear exam Mouth exam: PRESENT: moist, tongue midline Neck exam: PRESENT: full ROM Respiratory exam: PRESENT: clear to auscultation radha Cardiovascular exam: PRESENT: RRR, +S1, +S2 Pulses: PRESENT: normal dorsalis pedis pul, +2 pedal pulses bilateral Vascular exam: PRESENT: normal capillary refill GI/Abdominal exam: PRESENT: normal bowel sounds, soft Rectal exam: PRESENT: deferred Neurological exam: PRESENT: alert, awake, oriented to person, oriented to place , oriented to time, oriented to situation, CN II-XII grossly intact Psychiatric exam: PRESENT: appropriate affect, normal mood Skin exam: PRESENT: dry, intact, warm. ABSENT: cyanosis, rash Results Laboratory Results: 05/02/17 11:26 05/02/17 11:26 05/01/17 05/02/17 05/02/17 18:45 11:26 11:26 WBC 5.0 RBC 3.58 L Hgb 10.6 L D Hct 31.7 L MCV 88 MCH 29.6 MCHC 33.4 RDW 18.2 H Plt Count 135 L Sodium 139.4 Potassium 3.3 L Chloride 102 Carbon Dioxide 27 Anion Gap 10 BUN 28 H Creatinine 1.12 Est GFR ( Amer) 59 L Est GFR (Non-Af Amer) 49 L Glucose 153 H Calcium 9.1 Total Bilirubin 0.9 AST 336 H ALT 483 H Alkaline Phosphatase 156 H Total Protein 5.7 L Albumin 3.4 L Urine Color STRAW Urine Appearance CLEAR Urine pH 5.0 Ur Specific [place] 1.001 Urine Protein NEGATIVE Urine Glucose (UA) >=500 H Urine Ketones NEGATIVE Urine Blood SMALL H Urine Nitrite NEGATIVE Ur Leukocyte Esterase SMALL H Urine WBC (Auto) 9 Urine RBC (Auto) 2 Impressions: Abdomen/Pelvis CT 05/01/17 00:00 IMPRESSION: NO SIGNIFICANT OR ACUTE PROCESS IN THE ABDOMEN OR PELVIS. Qualifiers - * PATEINT BEING DISCHARGED WITH ANY OF THE FOLLOWING DIAGNOSIS?: No VTE patient discharged on overlapping Therapy?: No
[2017-05-02 17:10] VITALS: BP 105/65
[2017-05-02] MEDS ORDERED: ATORVASTATIN CALCIUM 20 MG TABLET PO SCH (22:00)
[2017-05-03 06:39] LABS: HEPATITIS A AB IGM Negative (Negative); HEPATITIS B CORE AB IGM Negative (Negative); HEPATITS B SURFACE ANTIGEN Negative (Negative)
[2017-05-03 07:06] LABS: HEPATITIS C VIRUS ANTIBODY <0.1 s/co ratio (0.0-0.9)
== END 2017-05-02 18:32 | disposition home or self-care (01) ==
LOC: EDSTATUS 12:41 → ER 12:41 → EH 12:45 → 3N 13:23
PROVIDERS: ADMIT Internal Medicine; ATTEND Internal Medicine
DX: R94.5 Abnormal results of liver function studies (principal); I25.10 Atherosclerotic heart disease of native coronary artery without angina pectoris; E11.9 Type 2 diabetes mellitus without complications; I10 Essential (primary) hypertension; J44.9 Chronic obstructive pulmonary disease, unspecified; R19.7 Diarrhea, unspecified; R05 Cough; M10.9 Gout, unspecified; M19.90 Unspecified osteoarthritis, unspecified site; Z79.82 Long term (current) use of aspirin; Z79.899 Other long term (current) drug therapy; Z95.1 Presence of aortocoronary bypass graft; Z79.84 Long term (current) use of oral hypoglycemic drugs
CPT/HCPCS: 36415 ×2; 82962 ×2; 85025; 85027; 80076; 80048; 80053; 81001; 87493; 80074; 74176; G0379; A9270 ×10; J7030 ×2; G0378; J3490

== ENCOUNTER 2017-07-01 17:02 | Emergency (ER) | payer MEDICARE, MEDICAID ==
--- NOTE | 2017-07-01 18:03 | ER Document Report ---
ED Medical Screen (RME) - General Chief Complaint: Abdominal Pain Stated Complaint: ABDOMINAL PAIN Time Seen by Provider: 07/01/17 17:46 Notes: RME DISCLOSURE I have seen this patient as part of a Rapid Medical Evaluation and, if applicable, placed any initially appropriate orders. The patient will be seen and fully evaluated, including a full history and physical exam, by a provider ( in Main ED or Fast Track) when a room becomes available. 67-year-old female here with several weeks now of lower abdominal pain, generalized weakness, lightheadedness that has been progressively worsening. Over the past 2 days, she has had some rectal bleeding while having a bowel movement. She does take aspirin but no other blood thinners. Last night, she did have an episode of syncope after using the bathroom. She states that she was in the hospital several weeks ago for "life-threatening illness". TRAVEL OUTSIDE OF THE [place] IN LAST 30 DAYS: No - Related Data Allergies/Adverse Reactions: Penicillins Allergy (Verified 07/01/17 17:03) Hives, Dizziness Past Medical History - Social History Chew tobacco use (# tins/day): No Frequency of alcohol use: None Drug Abuse: None - Past Medical History Cardiac Medical History: Reports: Hx Atrial Fibrillation, Hx Coronary Artery Disease, Hx Hypercholesterolemia, Hx Hypertension Denies: Hx Congestive Heart Failure, Hx Heart Attack, Hx Peripheral Vascular Disease, Hx Pulmonary Embolism, Hx Heart Murmur Pulmonary Medical History: Reports: Hx Asthma, Hx Bronchitis, Hx COPD, Hx Pneumonia - long time ago, Hx Sleep Apnea Denies: Hx Respiratory Failure, Hx Tuberculosis Neurological Medical History: Denies: Hx Seizures Endocrine Medical History: Reports: Hx Diabetes Mellitus Type 2 Renal/ Medical History: Reports: Hx Renal Insufficiency. Denies: Hx End Stage Renal Disease, Hx Peritoneal Dialysis Malignancy Medical History: Denies: Hx Lung Cancer GI Medical History: Reports: Hx Gastroesophageal Reflux Disease. Denies: Hx Crohn's Disease, Hx Hiatal Hernia, Hx Pancreatitis Musculoskeltal Medical History: Reports Hx Arthritis, Denies Hx Fibromyalgia, Reports Hx Gout Psychiatric Medical History: Denies: Hx Dementia, Hx Depression Past Surgical History: Reports: Hx Cardiac Catheterization - 08-08-2013, Hx Cardiac Surgery, Hx Section, Hx Coronary Artery Bypass Graft - 4 vessel CABG in 2000. Denies: Hx Appendectomy, Hx Cholecystectomy, Hx Colostomy , Hx Gastric Bypass Surgery, Hx Herniorrhaphy, Hx Hysterectomy, Hx Mastectomy, Hx Pacemaker, Hx Tonsillectomy, Hx Tubal Ligation - Immunizations Immunizations up to date: Yes Hx Diphtheria, Pertussis, Tetanus Vaccination: Yes History of Influenza Vaccine for 12/2016 - 05/2017 Season: Yes Influenza Administration Date for 12/2016 - 05/2017 Season: 12/10/16 Physical Exam - Vital signs Vitals: Temp Pulse Resp BP Pulse Ox 98.4 F 86 17 165/82 H 97 07/01/17 17:08 07/01/17 17:08 07/01/17 17:08 07/01/17 17:08 07/01/17 17:08 Course - Vital Signs Vital signs: Temp Pulse Resp BP Pulse Ox 98.4 F 86 17 165/82 H 97 07/01/17 17:08 07/01/17 17:08 07/01/17 17:08 07/01/17 17:08 07/01/17 17:08 Doctor's Discharge - Discharge Referrals: TAMMIE COSTA MD [Primary Care Provider] - Follow up as needed
[2017-07-01 18:45] LABS: ABSOLUTE LYMPHOCYTES (AUTO) 1.5 10^3/uL (0.5-4.7); ABSOLUTE MONOCYTES (AUTO) 0.5 10^3/uL (0.1-1.4); ABSOLUTE NEUT (AUTO) 2.8 10^3/uL (1.7-8.2); BASOPHILS % (AUTO) 0.9 % (0-2); EOSINOPHILS % (AUTO) 0.6 % (0-6); HEMOGLOBIN 13.4 g/dL (12.0-15.5); LYMPHOCYTES % (AUTO) 30.5 % (13-45); MEAN CORPUSCULAR HEMOGLOBIN 30.8 pg (27.0-33.4); MEAN CORPUSCULAR HGB CONC 34.4 g/dL (32.0-36.0); MEAN CORPUSCULAR VOLUME 90 fl (80-97); MONOCYTES % (AUTO) 10.4 % (3-13); PLATELET COUNT 114 10^3/uL (150-450); RED BLOOD COUNT 4.35 10^6/uL (3.72-5.28); RED CELL DISTRIBUTION WIDTH 16.6 % (11.5-14.0); SEGMENTED NEUTROPHILS % (AUTO) 57.6 % (42-78); TOTAL CELLS COUNTED % (AUTO) 100 %; WHITE BLOOD COUNT 4.9 10^3/uL (4.0-10.5)
[2017-07-01 18:49] LABS: INTERNATIONAL RATION (INR) 0.98; PROTHROMBIN TIME 13.5 SEC (11.4-15.4)
[2017-07-01 18:50] LABS: PARTIAL THROMBOPLASTIN TIME 31.1 SEC (23.5-35.8)
--- NOTE | 2017-07-01 18:57 | ER Document Report ---
ED General - General Mode of Arrival: Ambulatory Information source: Patient, Relative TRAVEL OUTSIDE OF THE [place] IN LAST 30 DAYS: No <YOLANDA LLOYD - Last Filed: 07/01/17 20:36> <AREN ESTRADA - Last Filed: 07/01/17 20:56> - General Chief Complaint: Abdominal Pain Stated Complaint: ABDOMINAL PAIN Time Seen by Provider: 07/01/17 17:46 Notes: Patient is a 67-year-old female with a history of diabetes, hypertension, gout, high cholesterol and a four-vessel CABG presents to the emergency department complaining of lower abdominal pain and postpandrial like diarrhea onset a few weeks ago. Patient was directly admitted to the hospital from office on for elevated LFTs and diarrhea, noting she has had diarrhea ever since then. Patient describes her pain as severe cramping which leads her to have a near syncopal episode. Patient also mentions having blood in her stool onset 2 days ago although she does states that she has hemorrhoids. Patient states that she stopped her statins which subsequently lowered her LFTs. Patient's PCP is Dr. Costa whom she discussed her symptoms with. Patient states that Dr. Costa prescribed her medication to deal with her symptoms but she has yet to fill the prescription. (YOLANDA LLOYD) - Related Data Allergies/Adverse Reactions: Penicillins Allergy (Verified 07/01/17 17:03) Hives, Dizziness Past Medical History - General Information source: Patient - Social History Smoking Status: Never Smoker Chew tobacco use (# tins/day): No Frequency of alcohol use: None Drug Abuse: None Family History: Reviewed & Not Pertinent Patient has suicidal ideation: No Patient has homicidal ideation: No - Past Medical History Cardiac Medical History: Reports: Hx Atrial Fibrillation, Hx Coronary Artery Disease, Hx Hypercholesterolemia, Hx Hypertension Pulmonary Medical History: Reports: Hx Asthma, Hx Bronchitis, Hx COPD, Hx Pneumonia - long time ago, Hx Sleep Apnea Endocrine Medical History: Reports: Hx Diabetes Mellitus Type 2 Renal/ Medical History: Reports: Hx Renal Insufficiency GI Medical History: Reports: Hx Gastroesophageal Reflux Disease Musculoskeltal Medical History: Reports Hx Arthritis, Reports Hx Gout Past Surgical History: Reports: Hx Cardiac Catheterization - 08-08-2013, Hx Cardiac Surgery, Hx Section, Hx Coronary Artery Bypass Graft - 4 vessel CABG in 2001 - Immunizations Immunizations up to date: Yes Hx Diphtheria, Pertussis, Tetanus Vaccination: Yes Hx Pneumococcal Vaccination: 01/10/17 <YOLANDA LLOYD - Last Filed: 07/01/17 20:36> Review of Systems - Review of Systems Constitutional: No symptoms reported EENT: No symptoms reported Cardiovascular: Palpitations, Syncope - near syncope Respiratory: No symptoms reported Gastrointestinal: See HPI, Abdominal pain, Diarrhea Genitourinary: No symptoms reported Female Genitourinary: No symptoms reported Musculoskeletal: No symptoms reported Skin: No symptoms reported Hematologic/Lymphatic: No symptoms reported Neurological/Psychological: No symptoms reported -: Yes All other systems reviewed and negative <YOLANDA LLOYD - Last Filed: 07/01/17 20:36> Physical Exam - General General appearance: Appears well, Alert In distress: None - HEENT Head: Normocephalic, Atraumatic Eyes: Normal Conjunctiva: Normal Extraocular movements intact: Yes Pupils: PERRL Neck: Normal - Respiratory Respiratory status: No respiratory distress Chest status: Nontender Breath sounds: Normal Chest palpation: Normal - Cardiovascular Rhythm: Regular Heart sounds: Normal auscultation Murmur: No Friction rub: No Gallop: None auscultated - Abdominal Inspection: Normal Distension: No distension Bowel sounds: Normal Tenderness: Nontender Organomegaly: No organomegaly - Back Back: Normal - Extremities General upper extremity: Normal ROM General lower extremity: Normal ROM - Neurological Neuro grossly intact: Yes Cognition: Normal Orientation: AAOx4 Sinclair Coma Scale Eye Opening: Spontaneous Sinclair Coma Scale Verbal: Oriented Phillip Coma Scale Motor: Obeys Commands Phillip Coma Scale Total: 15 Speech: Normal - Psychological Associated symptoms: Normal affect, Normal mood - Skin Skin Temperature: Warm Skin Moisture: Dry Skin Color: Normal <YOLANDA LLOYD - Last Filed: 07/01/17 20:36> - Vital signs Vitals: Temp Pulse Resp BP Pulse Ox 98.4 F 86 17 165/82 H 97 07/01/17 17:08 07/01/17 17:08 07/01/17 17:08 07/01/17 17:08 07/01/17 17:08 Course - Laboratory Result Diagrams: 07/01/17 18:16 07/01/17 18:16 <YOLANDA LLOYD - Last Filed: 07/01/17 20:36> - Laboratory Result Diagrams: 07/01/17 18:16 07/01/17 18:16 <AREN ESTRADA - Last Filed: 07/01/17 20:56> - Re-evaluation Re-evalutation: 07/01/17 20:42 I reviewed the negative CT scan and mostly negative lab work with patient. She wants to know why she has not had any energy now for so long, that she feels too weak to walk sometimes, and she has had no appetite for several weeks. I advised her that none of these issues were urgent or emergent problems and she should see her primary care provider this week to discuss all of these things. 07/01/17 20:55 Earlier the nurse told me the patient was having 5 out of 5 pain. Morphine was ordered. It was never given, because apparently we do not have morphine in the emergency room but I was not informed of this until just now. I had only left the patient's room about 10 minutes ago, and she was in absolutely no discomfort at that time as noted in my notes above. (AREN ESTRADA) - Vital Signs Vital signs: Temp Pulse Resp BP Pulse Ox 98.4 F 86 17 165/82 H 97 07/01/17 17:08 07/01/17 17:08 07/01/17 17:08 07/01/17 17:08 07/01/17 17:08 - Laboratory Laboratory results interpreted by me: 07/01/17 07/01/17 18:16 18:16 RDW 16.6 H Plt Count 114 L Sodium 145.9 H Chloride 97 L Carbon Dioxide 34 H BUN 49 H Creatinine 1.59 H Est GFR ( Amer) 39 L Est GFR (Non-Af Amer) 32 L Glucose 137 H Calcium 10.8 H Direct Bilirubin 0.7 H AST 166 H ALT 161 H Alkaline Phosphatase 180 H Lipase 500.4 H Discharge <YOLANDA LLOYD - Last Filed: 07/01/17 20:36> <AREN ESTRADA - Last Filed: 07/01/17 20:56> - Discharge Clinical Impression: Abdominal cramping, Chronic diarrhea, Decreased appetite, Decreased energy, Abnormal results of liver function studies Condition: Stable Disposition: HOME, SELF-CARE Additional Instructions: There was no explanation found today for your symptoms of lower abdominal cramps , diarrhea after eating, decreased appetite, loss of energy. The contrast a CT scan of her abdomen and pelvis was unremarkable. There was no sign of infection noted in your blood, urine, or imaging studies. Your liver enzymes are much improved from the admission in April, but are not totally back to normal. Your lipase which is a pancreatic enzyme, was slightly elevated today. You will be discharged home with some pain medicine to take tonight if needed. Follow-up with Dr. Costa tomorrow to discuss all of your symptoms. Referrals: TAMMIE COSTA MD [Primary Care Provider] - Follow up tomorrow Scribe Attestation: 07/01/17 19:57 I personally performed the services described in the documentation, reviewed and edited the documentation which was dictated to the scribe in my presence, and it accurately records my words and actions. (AREN ESTRADA) Scribe Documentation - Scribe Written by Noam:: Noam Henry, 07/01/2017 19:22 acting as scribe for :: Sunday <YOLANDA LLOYD - Last Filed: 07/01/17 20:36>
[2017-07-01 19:04] LABS: ALANINE AMINOTRANSFERASE 161 U/L (9-52); ALBUMIN 4.7 g/dL (3.5-5.0); ALKALINE PHOSPHATASE 180 U/L (38-126); ANION GAP 15 (5-19); ASPARTATE AMINO TRANSFERASE 166 U/L (14-36); BILIRUBIN,DIRECT 0.7 mg/dL (0.0-0.4); BILIRUBIN,TOTAL 1.3 mg/dL (0.2-1.3); BLOOD UREA NITROGEN 49 mg/dL (7-20); CALCIUM 10.8 mg/dL (8.4-10.2); CARBON DIOXIDE 34 mmol/L (22-30); CHLORIDE 97 mmol/L (98-107); GLUCOSE 137 mg/dL (75-110); LIPASE 500.4 U/L (23-300); PHOSPHORUS 3.3 mg/dL (2.5-4.5); SODIUM 145.9 mmol/L (137-145); TOTAL PROTEIN 7.9 g/dL (6.3-8.2)
[2017-07-01] MEDS ORDERED: MORPHINE SULFATE 10 MG/ML INJ IV ONE (20:10)
[2017-07-01] MEDS ORDERED: ONDANSETRON HCL INJ/PF 4 MG/2 ML SDV IV ONE (20:10)
--- NOTE | 2017-07-01 20:30 | RADIOLOGY REPORT (SQ) ---
EXAM DESCRIPTION: CT ABD/PELVIS WITH IV ONLY COMPLETED DATE/TIME: 07/01/2017 7:30 pm REASON FOR STUDY: lower abd pain w bloody stools COMPARISON: 08/16/2016 TECHNIQUE: CT scan of the abdomen and pelvis performed using helical scanning technique with dynamic intravenous contrast injection. No oral contrast. Images reviewed with lung, soft tissue, and bone windows. Reconstructed coronal and sagittal MPR images reviewed. Delayed images for evaluation of the urinary system also acquired. All images stored on PACS. All CT scanners at this facility use dose modulation, iterative reconstruction, and/or weight based d osing when appropriate to reduce radiation dose to as low as reasonably achievable (ALARA). [facility]: Dose Right [facility]: CareDose [facility]: Dose Right [facility]: Teradose 4D [facility]: Glarity CONTRAST TYPE AND DOSE: contrast/concentration: Isovue 300.00 mg/ml; Total Contrast Delivered: 60.0 ml; Total Saline Delivered: 65.0 ml RENAL FUNCTION: BUN 49 creatinine 1.59 RADIATION DOSE: CT Rad equipment meets quality standard of care and radiation dose reduction techniq ues were employed. CTDIvol: 4.8 - 4.8 mGy. DLP: 426 mGy-cm.. LIMITATIONS: None. FINDINGS: LOWER CHEST: No significant findings. No nodules or infiltrates. LIVER: Normal size. No masses. No dilated ducts. SPLEEN: Normal size. No focal lesions. PANCREAS: No masses. No significant calcifications. No adjacent inflammation or peripancreatic fluid collections. Pancreatic duct not dilated. GALLBLADDER: No identified stones by CT criteria. No inflammatory changes to suggest cholecystitis. ADRENAL GLANDS: No significant masses or asymmetry. RIGHT KIDNEY AND URETER: No solid masses. No significant calcifications. No hydronephrosis or hyd roureter. LEFT KIDNEY AND URETER: No solid masses. No significant calcifications. No hydronephrosis or hydr oureter. AORTA AND VESSELS: No aneurysm. No dissection. Renal arteries, SMA, celiac without stenosis. RETROPERITONEUM: No retroperitoneal adenopathy, hemorrhage or masses. BOWEL AND PERITONEAL CAVITY: No masses or inflammatory changes. No free fluid or peritoneal masses. APPENDIX: Normal. PELVIS: No mass. No free fluid. Normal bladder. ABDOMINAL WALL: No masses. No hernias. BONES: No acute findings. OTHER: No other significant finding. IMPRESSION: NO ACUTE FINDING IN THE ABDOMEN OR PELVIS ON CT SCAN WITH IV CONTRAST. TECHNICAL DOCUMENTATION: JOB ID: [id number] [id number] Quality ID # [id number]: Final reports with documentation of one or more dose reduction techniques (e.g., Au tomated exposure control, adjustment of the mA and/or kV according to patient size, use of iterative reconstruction technique) 2010 [employer]- All Rights Reserved Reading location - IP/workstation name: [email or web address]
[2017-07-01] MEDS ORDERED: HYDROCODONE/ACETAMINOPHEN 5-325 MG (6 TAB/ER DISP) PO PRN (20:45)
[2017-07-01 21:03] VITALS: BP 151/72
== END 2017-07-01 21:06 | disposition home or self-care (01) ==
LOC: ER 17:02
DX: R10.30 Lower abdominal pain, unspecified (principal); R19.7 Diarrhea, unspecified; R55 Syncope and collapse; R63.0 Anorexia; R00.2 Palpitations; R53.1 Weakness; R94.5 Abnormal results of liver function studies; K92.1 Melena; E11.9 Type 2 diabetes mellitus without complications; I10 Essential (primary) hypertension; I25.10 Atherosclerotic heart disease of native coronary artery without angina pectoris; J44.9 Chronic obstructive pulmonary disease, unspecified; Z95.1 Presence of aortocoronary bypass graft; Z88.0 Allergy status to penicillin; Z87.19 Personal history of other diseases of the digestive system
CPT/HCPCS: 99284; 36415; 82962; 83690; 83735; 84100; 85025; 85610; 85730; 80053; 74177; A9270

== ENCOUNTER 2017-09-04 17:59 | Emergency (ER) | payer MEDICARE, MEDICAID ==
--- NOTE | 2017-09-04 19:01 | ER Document Report ---
ED Medical Screen (RME) - General Chief Complaint: Pedal Edema Stated Complaint: POSSIBLE FEET SWELLING Time Seen by Provider: 09/04/17 18:52 Notes: RAPID MEDICAL EVALUATION DISCLOSURE I have seen this patient as part of a Rapid Medical Evaluation and, if applicable, placed any initially appropriate orders. The patient will be seen and fully evaluated, including a full history and physical exam, by a provider ( in Main ED or Fast Track) when a room becomes available. 67-year-old female here with complaints of weakness in both of her legs as well as lower extremity swelling ongoing for the past few days. She states that the weakness is to the point where she is having trouble walking. She does not have any chest pain shortness of breath numbness tingling. She has been taking her medication prescribed to her by her GI doctor to increase her appetite and she wonders if this may have anything to do with her symptoms. EXAM Pedal edema, left greater than right TRAVEL OUTSIDE OF THE [place] IN LAST 30 DAYS: No - Related Data Allergies/Adverse Reactions: Penicillins Allergy (Verified 07/01/17 17:03) Hives, Dizziness Past Medical History - Social History Chew tobacco use (# tins/day): No Frequency of alcohol use: None Drug Abuse: None - Past Medical History Cardiac Medical History: Reports: Hx Atrial Fibrillation, Hx Coronary Artery Disease, Hx Hypercholesterolemia, Hx Hypertension Denies: Hx Congestive Heart Failure, Hx Heart Attack, Hx Peripheral Vascular Disease, Hx Pulmonary Embolism, Hx Heart Murmur Pulmonary Medical History: Reports: Hx Asthma, Hx Bronchitis, Hx COPD, Hx Pneumonia - long time ago, Hx Sleep Apnea Denies: Hx Respiratory Failure, Hx Tuberculosis Neurological Medical History: Denies: Hx Seizures Endocrine Medical History: Reports: Hx Diabetes Mellitus Type 2 Renal/ Medical History: Reports: Hx Renal Insufficiency. Denies: Hx End Stage Renal Disease, Hx Peritoneal Dialysis Malignancy Medical History: Denies: Hx Lung Cancer GI Medical History: Reports: Hx Gastroesophageal Reflux Disease. Denies: Hx Crohn's Disease, Hx Hiatal Hernia, Hx Pancreatitis Musculoskeltal Medical History: Reports Hx Arthritis, Denies Hx Fibromyalgia, Reports Hx Gout Psychiatric Medical History: Denies: Hx Dementia, Hx Depression Past Surgical History: Reports: Hx Cardiac Catheterization - 08-08-2013, Hx Cardiac Surgery, Hx Section, Hx Coronary Artery Bypass Graft - 4 vessel CABG in 2000. Denies: Hx Appendectomy, Hx Cholecystectomy, Hx Colostomy , Hx Gastric Bypass Surgery, Hx Herniorrhaphy, Hx Hysterectomy, Hx Mastectomy, Hx Pacemaker, Hx Tonsillectomy, Hx Tubal Ligation - Immunizations Immunizations up to date: Yes Hx Diphtheria, Pertussis, Tetanus Vaccination: Yes History of Influenza Vaccine for 12/2016 - 05/2017 Season: Yes Influenza Administration Date for 12/2016 - 05/2017 Season: 12/10/16 Physical Exam - Vital signs Vitals: Temp Pulse Resp BP Pulse Ox 99.2 F 90 16 157/70 H 98 09/04/17 18:10 09/04/17 18:10 09/04/17 18:10 09/04/17 18:10 09/04/17 18:10 Course - Vital Signs Vital signs: Temp Pulse Resp BP Pulse Ox 99.2 F 90 16 157/70 H 98 09/04/17 18:10 09/04/17 18:10 09/04/17 18:10 09/04/17 18:10 09/04/17 18:10 Doctor's Discharge - Discharge Referrals: TAMMIE COSTA MD [Primary Care Provider] - Follow up as needed
[2017-09-04 19:19] LABS: ABSOLUTE BASOPHILS # (AUTO) 0.1 10^3/uL (0.0-0.2); ABSOLUTE NEUT (AUTO) 5.2 10^3/uL (1.7-8.2); BASOPHILS % (AUTO) 0.8 % (0-2); EOSINOPHILS % (AUTO) 0.5 % (0-6); HEMATOCRIT 37.6 % (36.0-47.0); HEMOGLOBIN 12.7 g/dL (12.0-15.5); LYMPHOCYTES % (AUTO) 24.1 % (13-45); MEAN CORPUSCULAR HGB CONC 33.8 g/dL (32.0-36.0); MEAN CORPUSCULAR VOLUME 95 fl (80-97); MONOCYTES % (AUTO) 11.7 % (3-13); PLATELET COUNT 230 10^3/uL (150-450); RED BLOOD COUNT 3.96 10^6/uL (3.72-5.28); RED CELL DISTRIBUTION WIDTH 19.6 % (11.5-14.0); SEGMENTED NEUTROPHILS % (AUTO) 62.9 % (42-78); TOTAL CELLS COUNTED % (AUTO) 100 %; WHITE BLOOD COUNT 8.2 10^3/uL (4.0-10.5)
[2017-09-04 19:35] LABS: ALANINE AMINOTRANSFERASE 150 U/L (9-52); ALBUMIN 3.8 g/dL (3.5-5.0); ALKALINE PHOSPHATASE 145 U/L (38-126); ANION GAP 8 (5-19); ASPARTATE AMINO TRANSFERASE 116 U/L (14-36); BILIRUBIN,DIRECT 0.4 mg/dL (0.0-0.4); BILIRUBIN,TOTAL 0.6 mg/dL (0.2-1.3); BLOOD UREA NITROGEN 40 mg/dL (7-20); CALCIUM 9.2 mg/dL (8.4-10.2); CARBON DIOXIDE 32 mmol/L (22-30); CHLORIDE 100 mmol/L (98-107); GLUCOSE 129 mg/dL (75-110); PHOSPHORUS 2.3 mg/dL (2.5-4.5); POTASSIUM 3.9 mmol/L (3.6-5.0); SODIUM 140.4 mmol/L (137-145); TOTAL PROTEIN 6.7 g/dL (6.3-8.2)
[2017-09-04] MEDS ORDERED: METOPROLOL SUCCINATE 50 MG TAB.SR.24H PO ONE (19:54)
--- NOTE | 2017-09-04 19:54 | ER Document Report ---
ED Extremity Problem, Lower - General Chief Complaint: Pedal Edema Stated Complaint: POSSIBLE FEET SWELLING Time Seen by Provider: 09/04/17 18:52 Notes: Patient is a 67-year-old female comes emergency department for chief complaint of weakness in her legs and she has noticed developing swelling over the past 3 days much worse on the left than the right. Minimal swelling in the right, swelling in the left is causing pain and trouble walking. She denies injury, history of the same, fever or chills, shortness of breath, chest pain. Past medical history is extensive and includes atrial fibrillation, COPD, CABG, hypertension, hyperlipidemia, gastric bypass, currently under treatment for H. pylori. She states she is out of her metoprolol 100 mg and she missed a dose today and needs a prescription. TRAVEL OUTSIDE OF THE [place] IN LAST 30 DAYS: No - Related Data Allergies/Adverse Reactions: Penicillins Allergy (Verified 07/01/17 17:03) Hives, Dizziness Past Medical History - General Information source: Patient - Social History Smoking Status: Never Smoker Chew tobacco use (# tins/day): No Frequency of alcohol use: None Drug Abuse: None Lives with: Alone Family History: Reviewed & Not Pertinent Patient has suicidal ideation: No Patient has homicidal ideation: No - Past Medical History Cardiac Medical History: Reports: Hx Atrial Fibrillation, Hx Coronary Artery Disease, Hx Hypercholesterolemia, Hx Hypertension Denies: Hx Congestive Heart Failure, Hx Heart Attack, Hx Peripheral Vascular Disease, Hx Pulmonary Embolism, Hx Heart Murmur Pulmonary Medical History: Reports: Hx Asthma, Hx Bronchitis, Hx COPD, Hx Pneumonia - long time ago, Hx Sleep Apnea Denies: Hx Respiratory Failure, Hx Tuberculosis Neurological Medical History: Denies: Hx Seizures Endocrine Medical History: Reports: Hx Diabetes Mellitus Type 2 Renal/ Medical History: Reports: Hx Renal Insufficiency. Denies: Hx End Stage Renal Disease, Hx Peritoneal Dialysis Malignancy Medical History: Denies: Hx Lung Cancer GI Medical History: Reports: Hx Gastroesophageal Reflux Disease. Denies: Hx Crohn's Disease, Hx Hiatal Hernia, Hx Pancreatitis Musculoskeltal Medical History: Reports Hx Arthritis, Denies Hx Fibromyalgia, Reports Hx Gout Psychiatric Medical History: Denies: Hx Dementia, Hx Depression Past Surgical History: Reports: Hx Cardiac Catheterization - 08-08-2013, Hx Cardiac Surgery, Hx Section, Hx Coronary Artery Bypass Graft - 4 vessel CABG in 2000. Denies: Hx Appendectomy, Hx Cholecystectomy, Hx Colostomy , Hx Gastric Bypass Surgery, Hx Herniorrhaphy, Hx Hysterectomy, Hx Mastectomy, Hx Pacemaker, Hx Tonsillectomy, Hx Tubal Ligation - Immunizations Immunizations up to date: Yes Hx Diphtheria, Pertussis, Tetanus Vaccination: Yes Hx Pneumococcal Vaccination: 01/10/17 Review of Systems - Review of Systems Constitutional: No symptoms reported EENT: No symptoms reported Cardiovascular: See HPI Respiratory: No symptoms reported Gastrointestinal: No symptoms reported Genitourinary: No symptoms reported Female Genitourinary: No symptoms reported Musculoskeletal: See HPI Skin: See HPI Hematologic/Lymphatic: No symptoms reported Neurological/Psychological: No symptoms reported Physical Exam - Vital signs Vitals: Temp Pulse Resp BP Pulse Ox 99.2 F 90 16 157/70 H 98 09/04/17 18:10 09/04/17 18:10 09/04/17 18:10 09/04/17 18:10 09/04/17 18:10 - Notes Notes: GENERAL: Alert, interacts well. No acute distress. HEAD: Normocephalic, atraumatic. EYES: Pupils equal, round, and reactive to light. Extraocular movements intact. ENT: Oral mucosa moist, tongue midline. NECK: Full range of motion. Supple. Trachea midline. LUNGS: Clear to auscultation bilaterally, no wheezes, rales, or rhonchi. No respiratory distress. HEART: Regular rate and rhythm. No murmur ABDOMEN: Soft, non-tender. Non-distended. Bowel sounds present in all 4 quadrants. EXTREMITIES: Moves all 4 extremities spontaneously. Pitting edema with edema over the foot, ankle, and slightly of the tibia in the left lower extremity, normal pulse and sensation, no erythema or abnormal heat suggesting infection, no significant pain on palpation. Right lower extremity is actually unremarkable with no notable or pitting edema. BACK: no cervical, thoracic, lumbar midline tenderness. No saddle anesthesia, normal distal neurovascular exam. NEUROLOGICAL: Alert and oriented x3. Normal speech. [cranial nerves II through XII grossly intact]. PSYCH: Normal affect, normal mood. SKIN: Warm, dry, normal turgor. No rashes or lesions noted. Course - Re-evaluation Re-evalutation: CBC unremarkable. Chemistry shows what appears to be chronic renal insufficiency with no significant change from prior. LFTs are elevated but this also shows no significant change from prior, no abdominal pain, no ascites on exam. Albumin is within normal range. Venous Doppler is negative. Patient is able to ambulate on the leg without too much difficulty. Urinalysis suggesting infection. Suspect venous insufficiency , no evidence of cellulitis, asymmetrical edema, no ascites. No shortness of breath, clear lungs on auscultation. Patient will use compression stockings, elevate, discussed diuretic but patient declines at this time. She states that she was to follow-up with her provider in the next couple of days, try the compression stockings, and see how she does. Providing with antibiotic. Discussed return precautions in detail. Patient states satisfaction and agreement. - Vital Signs Vital signs: Temp Pulse Resp BP Pulse Ox 99.2 F 59 L 18 144/62 H 99 09/04/17 18:10 09/04/17 23:40 09/04/17 23:40 09/04/17 23:40 09/04/17 23:40 - Laboratory Result Diagrams: 09/04/17 19:07 09/04/17 19:07 Laboratory results interpreted by me: 09/04/17 09/04/17 09/04/17 19:07 19:07 20:25 RDW 19.6 H Carbon Dioxide 32 H BUN 40 H Creatinine 1.32 H Est GFR ( Amer) 48 L Est GFR (Non-Af Amer) 40 L Glucose 129 H POC Glucose 119 H Phosphorus 2.3 L AST 116 H ALT 150 H Alkaline Phosphatase 145 H Urine Protein Urine Blood Ur Leukocyte Esterase 09/04/17 22:40 RDW Carbon Dioxide BUN Creatinine Est GFR ( Amer) Est GFR (Non-Af Amer) Glucose POC Glucose Phosphorus AST ALT Alkaline Phosphatase Urine Protein 30 H Urine Blood LARGE H Ur Leukocyte Esterase MODERATE H Discharge - Discharge Clinical Impression: Peripheral edema, Urinary symptom or sign Condition: Stable Disposition: HOME, SELF-CARE Additional Instructions: Your labs do not show significant change from your earlier ones, your ultrasound of your leg does not show blood clot. Recommendation is to wear compression stockings, elevate the leg, and follow-up with your primary care within the next several days for additional evaluation and management. You have been provided with a refill of your Toprol-XL, take daily as prescribed. We are treating you for urinary tract infection with the Keflex antibiotic. Return if you worsen including developing redness, severe pain, shortness of breath, chest pain, or any other concerning or worsening symptoms. Prescriptions: Cephalexin Monohydrate [Keflex 500 mg Capsule] 500 mg PO BID #10 capsule Metoprolol Succinate [Toprol Xl] 100 mg PO DAILY #30 tab.er.24h Referrals: TAMMIE COSTA MD [Primary Care Provider] - Follow up as needed
--- NOTE | 2017-09-04 22:16 | RADIOLOGY REPORT (SQ) ---
EXAM DESCRIPTION: VENOUS UNILATERAL LOWER COMPLETED DATE/TIME: 09/04/2017 10:01 pm REASON FOR STUDY: LLE swelling COMPARISON: None. TECHNIQUE: Dynamic and static alatorre scale and color images acquired of the left leg venous system. Se lected spectral images acquired with additional compression and augmentation maneuvers. The contralat eral common femoral vein and saphenofemoral junction were also imaged. Images stored on PACS. LIMITATIONS: None. FINDINGS: COMMON FEMORAL: Normal phasicity, compression and augmentation. No visualized echogenic ma terial on alatorre scale. No defects on color images. FEMORAL: Normal compression and augmentation. No visualized echogenic material on alatorre scale. No defe cts on color images. POPLITEAL: Normal compression, augmentation. No visualized echogenic material on alatorre scale. No defec ts on color images. CALF VESSELS: Normal compression, augmentation. No visualized echogenic material on alatorre scale. No de fects on color images. GSV and SSV: Normal compression, augmentation. No visualized echogenic material on alatorre scale. No def ects on color images. ANY DEEP VENOUS INSUFFICIENCY: No ANY EVIDENCE OF POPLITEAL CYST: No. OTHER: No other significant finding. CONTRALATERAL COMMON FEMORAL VEIN AND SAPHENOFEMORAL JUNCTION: Normal phasicity, compression and augmentation. No visualized echogenic material on alatorre scale. No de fects on color images. IMPRESSION: NO EVIDENCE OF DVT OR SVT IN THE LEFT LEG. TECHNICAL DOCUMENTATION: JOB ID: [id number] [employer]- All Rights Reserved Reading location - IP/workstation name: [email or web address]
[2017-09-04 22:55] LABS: APPEARANCE,URINE CLEAR; BILIRUBIN,URINE NEGATIVE (NEGATIVE); COLOR,URINE STRAW; GLUCOSE, URINE NEGATIVE (NEGATIVE); KETONES,URINE NEGATIVE (NEGATIVE); LEUKOCYTE ESTERASE,URINE MODERATE (NEGATIVE); NITRITE,URINE NEGATIVE (NEGATIVE); PROTEIN,URINE 30 mg/dL (NEGATIVE); URINE SPECIFIC GRAVITY 1.008; UROBILINOGEN,URINE NEGATIVE mg/dL (<2.0)
[2017-09-04] MEDS ORDERED: CEPHALEXIN 500 MG CAPSULE PO ONE (23:12)
[2017-09-04 23:51] VITALS: BP 144/62
== END 2017-09-04 23:51 | disposition home or self-care (01) ==
LOC: ER 17:59
DX: R60.1 Generalized edema (principal); R53.1 Weakness; R33.9 Retention of urine, unspecified; I48.91 Unspecified atrial fibrillation; E11.9 Type 2 diabetes mellitus without complications; J44.9 Chronic obstructive pulmonary disease, unspecified; Z88.0 Allergy status to penicillin; Z95.1 Presence of aortocoronary bypass graft
CPT/HCPCS: 99284; 36415; 82962; 83735; 84100; 85025; 80053; 81001; 93971; A9270 ×2

== ENCOUNTER 2017-12-24 09:23 | Emergency (ER) | payer MEDICARE, MEDICAID ==
--- NOTE | 2017-12-24 09:58 | ER Document Report ---
ED General - General Chief Complaint: Ear Pain Stated Complaint: EAR ACHE Time Seen by Provider: 12/24/17 09:46 Mode of Arrival: Ambulatory Information source: Patient Notes: 67-year-old female presents the emergency department with complaints of bilateral ear pain and palpitations. Patient states that she is been having the bilateral ear pain for the last 2 days. She states that the right ear is worse than the left. She states that she is having a throbbing sensation to the right temporal area. She states that this pain radiates down into the right neck. She denies any alleviating or exacerbating factors. Patient states that she did have some liquids come out of her right ear this morning. She has had a sore throat over the last 2 days. Patient states that this has resolved. She does state that this morning she woke up having some chest pain and palpitations. She took aspirin. Palpitations lasted about 10 minutes and resolved. Patient has a history of atrial fibrillation. She's not on any anti- coagulation. She follows up with Dr. Guan. Hx of 4 vessel CABG in 2000. I have greeted and performed a rapid initial assessment of this patient. A comprehensive ED assessment and evaluation of the patient, analysis of test results and completion of the medical decision making process will be conducted by additional ED providers. PHYSICAL EXAMINATION: GENERAL: Well-appearing, well-nourished and in no acute distress. HEAD: Atraumatic, normocephalic. EYES: Pupils equal round extraocular movements intact, conjunctiva are normal. No pain with manipulation of the pinna. No drainage from either ear. No erythema in the canal or TM. ENT: Nares patent NECK: Normal range of motion LUNGS: No respiratory distress Musculoskeletal: Normal range of motion NEUROLOGICAL: Normal speech, normal gait. PSYCH: Normal mood, normal affect. SKIN: Warm, Dry, normal turgor, no rashes or lesions noted. TRAVEL OUTSIDE OF THE [place] IN LAST 30 DAYS: No - Related Data Allergies/Adverse Reactions: Penicillins Allergy (Verified 12/24/17 09:25) Hives, Dizziness Past Medical History - General Information source: Patient - Social History Smoking Status: Never Smoker Chew tobacco use (# tins/day): No Frequency of alcohol use: None Drug Abuse: None Family History: Reviewed & Not Pertinent Patient has suicidal ideation: No Patient has homicidal ideation: No - Past Medical History Cardiac Medical History: Reports: Hx Atrial Fibrillation, Hx Coronary Artery Disease, Hx Hypercholesterolemia, Hx Hypertension Denies: Hx Congestive Heart Failure, Hx Heart Attack, Hx Peripheral Vascular Disease, Hx Pulmonary Embolism, Hx Heart Murmur Pulmonary Medical History: Reports: Hx Asthma, Hx Bronchitis, Hx COPD, Hx Pneumonia - long time ago, Hx Sleep Apnea Denies: Hx Respiratory Failure, Hx Tuberculosis Neurological Medical History: Denies: Hx Seizures Endocrine Medical History: Reports: Hx Diabetes Mellitus Type 2 Renal/ Medical History: Reports: Hx Renal Insufficiency. Denies: Hx End Stage Renal Disease, Hx Peritoneal Dialysis Malignancy Medical History: Denies: Hx Lung Cancer GI Medical History: Reports: Hx Gastroesophageal Reflux Disease. Denies: Hx Crohn's Disease, Hx Hiatal Hernia, Hx Pancreatitis Musculoskeletal Medical History: Reports Hx Arthritis, Denies Hx Fibromyalgia, Reports Hx Gout Psychiatric Medical History: Denies: Hx Dementia, Hx Depression Past Surgical History: Reports: Hx Cardiac Catheterization - 08-08-2013, Hx Cardiac Surgery, Hx Section, Hx Coronary Artery Bypass Graft - 4 vessel CABG in 2000. Denies: Hx Appendectomy, Hx Cholecystectomy, Hx Colostomy , Hx Gastric Bypass Surgery, Hx Herniorrhaphy, Hx Hysterectomy, Hx Mastectomy, Hx Pacemaker, Hx Tonsillectomy, Hx Tubal Ligation - Immunizations Immunizations up to date: Yes Hx Diphtheria, Pertussis, Tetanus Vaccination: Yes Hx Pneumococcal Vaccination: 01/10/17 Physical Exam - Vital signs Vitals: Temp Pulse Resp BP Pulse Ox 97.7 F 71 16 167/91 H 96 12/24/17 09:38 12/24/17 09:38 12/24/17 09:38 12/24/17 09:38 12/24/17 09:38 Course - Vital Signs Vital signs: Temp Pulse Resp BP Pulse Ox 97.7 F 71 16 167/91 H 96 12/24/17 09:38 12/24/17 09:38 12/24/17 09:38 12/24/17 09:38 12/24/17 09:38 Discharge - Discharge Referrals: TAMMIE COSTA MD [Primary Care Provider] - Follow up as needed
[2017-12-24 10:33] LABS: ABSOLUTE BASOPHILS # (AUTO) 0.1 10^3/uL (0.0-0.2); ABSOLUTE EOSINOPHILS # (AUTO) 0.3 10^3/uL (0.0-0.6); ABSOLUTE MONOCYTES (AUTO) 0.7 10^3/uL (0.1-1.4); ABSOLUTE NEUT (AUTO) 3.1 10^3/uL (1.7-8.2); BASOPHILS % (AUTO) 1.2 % (0-2); EOSINOPHILS % (AUTO) 4.5 % (0-6); HEMATOCRIT 40.6 % (36.0-47.0); HEMOGLOBIN 13.9 g/dL (12.0-15.5); LYMPHOCYTES % (AUTO) 32.8 % (13-45); MEAN CORPUSCULAR HEMOGLOBIN 31.9 pg (27.0-33.4); MEAN CORPUSCULAR HGB CONC 34.1 g/dL (32.0-36.0); MEAN CORPUSCULAR VOLUME 94 fl (80-97); MONOCYTES % (AUTO) 10.8 % (3-13); PLATELET COUNT 325 10^3/uL (150-450); RED BLOOD COUNT 4.35 10^6/uL (3.72-5.28); RED CELL DISTRIBUTION WIDTH 14.8 % (11.5-14.0); SEGMENTED NEUTROPHILS % (AUTO) 50.7 % (42-78); TOTAL CELLS COUNTED % (AUTO) 100 %; WHITE BLOOD COUNT 6.1 10^3/uL (4.0-10.5)
--- NOTE | 2017-12-24 10:35 | ER Document Report ---
ED General - General Chief Complaint: Ear Pain Stated Complaint: EAR ACHE Time Seen by Provider: 12/24/17 09:46 Mode of Arrival: Ambulatory Notes: 67-year-old female presents to the ER complaining of an earache in the right ear. Stated some fluid drained from it. She did not complain of some palpitations and rapid heart rate at that time. States she only gets this when her ear hurts she is a history of having ear infections. She has been on antibiotics for this before stated the pain in her ear radiates to her head made her head hurt she denies any sore throat. Denies cough. Denies nausea vomiting diarrhea. Scribes the discomfort is aching in her ear and when aching stop she hears a buzzing in her ear. He rates this as severe TRAVEL OUTSIDE OF THE [place] IN LAST 30 DAYS: No - Related Data Allergies/Adverse Reactions: Penicillins Allergy (Verified 12/24/17 09:25) Hives, Dizziness Past Medical History - General Information source: Patient - Social History Smoking Status: Never Smoker Chew tobacco use (# tins/day): No Frequency of alcohol use: None Drug Abuse: None Family History: Reviewed & Not Pertinent Patient has suicidal ideation: No Patient has homicidal ideation: No - Past Medical History Cardiac Medical History: Reports: Hx Atrial Fibrillation, Hx Coronary Artery Disease, Hx Hypercholesterolemia, Hx Hypertension Denies: Hx Congestive Heart Failure, Hx Heart Attack, Hx Peripheral Vascular Disease, Hx Pulmonary Embolism, Hx Heart Murmur Pulmonary Medical History: Reports: Hx Asthma, Hx Bronchitis, Hx COPD, Hx Pneumonia - long time ago, Hx Sleep Apnea Denies: Hx Respiratory Failure, Hx Tuberculosis Neurological Medical History: Denies: Hx Seizures Endocrine Medical History: Reports: Hx Diabetes Mellitus Type 2 Renal/ Medical History: Reports: Hx Renal Insufficiency. Denies: Hx End Stage Renal Disease, Hx Peritoneal Dialysis Malignancy Medical History: Denies: Hx Lung Cancer GI Medical History: Reports: Hx Gastroesophageal Reflux Disease. Denies: Hx Crohn's Disease, Hx Hiatal Hernia, Hx Pancreatitis Musculoskeletal Medical History: Reports Hx Arthritis, Denies Hx Fibromyalgia, Reports Hx Gout Psychiatric Medical History: Denies: Hx Dementia, Hx Depression Past Surgical History: Reports: Hx Cardiac Catheterization - 08-08-2013, Hx Cardiac Surgery, Hx Section, Hx Coronary Artery Bypass Graft - 4 vessel CABG in 2000. Denies: Hx Appendectomy, Hx Cholecystectomy, Hx Colostomy , Hx Gastric Bypass Surgery, Hx Herniorrhaphy, Hx Hysterectomy, Hx Mastectomy, Hx Pacemaker, Hx Tonsillectomy, Hx Tubal Ligation - Immunizations Immunizations up to date: Yes Hx Diphtheria, Pertussis, Tetanus Vaccination: Yes Hx Pneumococcal Vaccination: 01/10/17 Review of Systems - Review of Systems Constitutional: denies: Chills, Fever, Weakness, Weight loss EENT: Ear pain, Ear discharge - Clear. denies: Eye pain, Eye discharge Cardiovascular: denies: Chest pain, Dyspnea Respiratory: denies: Short of breath Gastrointestinal: denies: Nausea, Vomiting Neurological/Psychological: Headaches. denies: Paralysis, Numbness -: Yes All other systems reviewed and negative Physical Exam - Vital signs Vitals: Temp Pulse Resp BP Pulse Ox 97.7 F 71 16 167/91 H 96 12/24/17 09:38 12/24/17 09:38 12/24/17 09:38 12/24/17 09:38 12/24/17 09:38 - Notes Notes: GENERAL_APPEARANCE: well_nourished, alert, cooperative, no_acute_distress, no_ obvious_discomfort. VITALS: reviewed, see vital signs table. HEAD: no_swelling\tenderness on the head. EYES: PERRL, EOMI, conjunctiva_clear. EARS: Right TM has a little bit of injection and redness no defects are noted to the membrane itself there is a small amount of fluid in the floor of the middle ear., Left is unremarkable NOSE: no_nasal_discharge. MOUTH: (-)decreased moisture. THROAT: no_throat_inflammation, no_airway_obstruction. no_lymphadenopathy NECK: supple, no_neck_tenderness, (-)thyromegaly. BACK: no_back_tenderness. CHEST_WALL: CABG scar. LUNGS: no_wheezing, no_rales, no_rhonchi, (-)accessory muscle use, good air exchange bilateral. HEART: normal_rate, normal_rhythm, normal_S1, normal_S2, (-)S3, (-)S4, no_ murmur, no_rub. ABDOMEN: normal_BS, soft, no_abd_tenderness, (-)guarding, (-)rebound, no_ organomegaly, no_abd_masses. EXTREMITIES: good pulses in all_extremities, no_swelling\tenderness in the extremities, no_edema. SKIN: warm, dry, good_color, no_rash. MENTAL_STATUS: speech_clear, oriented_X_3, normal_affect, responds_ appropriately to questions. NEURO: Neg Motor or Sensory Deficits on exam, CN 2-12 intact, DTR 2+ symmetric x 4, No cerbellar signs Course - Re-evaluation Re-evalutation: 12/24/17 10:36 Patient presents with headache and right ear pain. Small amount of serous fluid noted in the right ear. I see no defect in the membrane the patient stated she had some clear fluid draining from an earlier she complains of some buzzing also in her ear. She does not have any extremity numbness tingling or weakness. Triage physician ordered a cardiac type workup probably likely due to her palpitation and rapid heart rate complaint. We will monitor her closely check some labs and enzymes. We will get a CT to assess for any kind of TIME BROKER tumor or schwannoma pushing on the ear nerve. 12/24/17 14:43 Head scan looks good. EKG looks okay. Troponin is negative x2 it was not completely 0 but it was unchanged. Clinically this does not seem to correlate. We will place the patient on antibiotic for her ear. The patient tells me Dr. Vieyra made an appointment with ENT for her but she did not realize this and missed it. She will reschedule with ENT. Also for her low potassium I will give her several days of oral potassium. And encouraged her to eat a potassium rich diet. - Vital Signs Vital signs: Temp Pulse Resp BP Pulse Ox 97.7 F 71 14 142/64 H 94 12/24/17 09:38 12/24/17 09:38 12/24/17 14:01 12/24/17 14:00 12/24/17 14:01 - Laboratory Result Diagrams: 12/24/17 10:10 12/24/17 10:10 Laboratory results interpreted by me: 12/24/17 12/24/17 10:10 10:10 RDW 14.8 H Potassium 2.3 L* Chloride 93 L Carbon Dioxide 38 H BUN 27 H Creatinine 1.48 H Est GFR ( Amer) 42 L Est GFR (Non-Af Amer) 35 L Glucose 155 H Total Bilirubin 1.4 H Direct Bilirubin 0.5 H AST 52 H Creatine Kinase 253 H - Diagnostic Test Radiology reviewed: Reports reviewed Radiology results interpreted by me: 12/24/17 14:43 Chest X-Ray 12/24/17 09:53 IMPRESSION: 1. No significant interval changes since the prior examination dated 02/05/2017. No acute findings. Head CT 12/24/17 10:29 IMPRESSION: 1. No significant interval changes since the prior examination dated 06/25/2013. No acute intracranial abnormality. 2. Mild atrophy and old remote bilateral lacunes. EVIDENCE OF ACUTE STROKE: NO. - EKG Interpretation by Me EKG shows normal: Sinus rhythm Rate: Normal Additional EKG results interpreted by me: 12/24/17 13:57 Slight prolonged QT otherwise no acute abnormalities Discharge - Discharge Clinical Impression: Earache on right, Hypokalemia, Palpitations Condition: Good Disposition: HOME, SELF-CARE Instructions: Serous Otitis Media ([facility]) Additional Instructions: Please follow-up with the ENT for your ear. Please eat potassium rich foods. Have your potassium rechecked in 1 week Prescriptions: Azithromycin [Zithromax 250 mg Tablet] 250 mg PO ASDIR PRN #6 tablet PRN Reason: Potassium Chloride 20 meq PO DAILY #5 tablet.er Referrals: TAMMIE COSTA MD [Primary Care Provider] - Follow up as needed
--- NOTE | 2017-12-24 10:43 | RADIOLOGY REPORT (SQ) ---
EXAM DESCRIPTION: CHEST SINGLE VIEW COMPLETED DATE/TIME: 12/24/2017 10:22 am REASON FOR STUDY: palpitations COMPARISON: 02/05/2017. EXAM PARAMETERS: NUMBER OF VIEWS: One view. TECHNIQUE: Single frontal radiographic view of the chest acquired. RADIATION DOSE: NA LIMITATIONS: None. FINDINGS: LUNGS AND PLEURA: No opacities, masses or pneumothorax. No pleural effusion. MEDIASTINUM AND HILAR STRUCTURES: No masses. Contour normal. HEART AND VASCULAR STRUCTURES: Heart normal in size. Normal vasculature. BONES: No acute findings. HARDWARE: Prior anterior median sternotomy. OTHER: No other significant finding. IMPRESSION: 1. No significant interval changes since the prior examination dated 02/05/2017. No ac roxanne findings. TECHNICAL DOCUMENTATION: JOB ID: [id number] [employer]- All Rights Reserved Reading location - IP/workstation name: [email or web address]
--- NOTE | 2017-12-24 10:55 | RADIOLOGY REPORT (SQ) ---
EXAM DESCRIPTION: CT HEAD WITHOUT COMPLETED DATE/TIME: 12/24/2017 10:41 am REASON FOR STUDY: headache COMPARISON: 06/25/2013 TECHNIQUE: Axial images acquired through the brain without intravenous contrast. Images reviewed wi th bone, brain and subdural windows. Additional sagittal and coronal reconstructions were generated. Images stored on PACS. All CT scanners at this facility use dose modulation, iterative reconstruction, and/or weight based d osing when appropriate to reduce radiation dose to as low as reasonably achievable (ALARA). [facility]: Dose Right [facility]: CareDose [facility]: Dose Right [facility]: Teradose 4D [facility]: Smart Pictrition App RADIATION DOSE: CT Rad equipment meets quality standard of care and radiation dose reduction techniq ues were employed. CTDIvol: 53.2 mGy. DLP: 1017 mGy-cm. LIMITATIONS: None. FINDINGS: VENTRICLES: Normal size and contour. The cisterns are patent. CEREBRUM: Old remote bilateral lacunes. No masses. No hemorrhage. No midline shift. No evidence f or acute infarction. CEREBELLUM: No masses. No hemorrhage. No alteration of density. No evidence for acute infarction. EXTRAAXIAL SPACES: Age related involutional change. No fluid collections. No masses. ORBITS AND GLOBE: No intra- or extraconal masses. Normal contour of globe without masses. CALVARIUM: No fracture. PARANASAL SINUSES: Slight mucosal thickening left maxillary sinus. No fluid or mucosal thickening. SOFT TISSUES: No mass or hematoma. OTHER: Mild atherosclerotic changes involving the cavernous portion of the internal carotid arteries and the intracranial portion of the vertebral arteries, more so on the left. Incidentally, partial empty sella. IMPRESSION: 1. No significant interval changes since the prior examination dated 06/25/2013. No acu te intracranial abnormality. 2. Mild atrophy and old remote bilateral lacunes. EVIDENCE OF ACUTE STROKE: NO. COMMENT: Quality ID # [id number]: Final reports with documentation of one or more dose reduction techniques (e.g., Automated exposure control, adjustment of the mA and/or kV according to patient size, use of iterative reconstruction technique) TECHNICAL DOCUMENTATION: JOB ID: [id number] [employer]- All Rights Reserved Reading location - IP/workstation name: [email or web address]
[2017-12-24 11:00] LABS: ALANINE AMINOTRANSFERASE 40 U/L (9-52); ALBUMIN 4.5 g/dL (3.5-5.0); ALKALINE PHOSPHATASE 104 U/L (38-126); ANION GAP 10 (5-19); ASPARTATE AMINO TRANSFERASE 52 U/L (14-36); BILIRUBIN,DIRECT 0.5 mg/dL (0.0-0.4); BILIRUBIN,TOTAL 1.4 mg/dL (0.2-1.3); BLOOD UREA NITROGEN 27 mg/dL (7-20); CARBON DIOXIDE 38 mmol/L (22-30); CHLORIDE 93 mmol/L (98-107); CREATINE KINASE 253 U/L (30-135); GLUCOSE 155 mg/dL (75-110); SODIUM 140.7 mmol/L (137-145)
[2017-12-24 11:03] LABS: POTASSIUM 2.3 mmol/L (3.6-5.0)
[2017-12-24 11:21] LABS: CREATINE KINASE MB 1.82 ng/mL (<4.55)
[2017-12-24 11:26] LABS: TROPONIN I 0.041 ng/mL
[2017-12-24] MEDS ORDERED: POTASSIUM CHLORIDE 10 MEQ CAPSULE.ER PO ONE (11:31)
--- NOTE | 2017-12-24 13:43 | EKG REPORT ---
SEVERITY:- ABNORMAL ECG - SINUS RHYTHM PROLONGED QT INTERVAL : Confirmed by: Karsten Fong MD 24-Dec-2017 13:42:06
[2017-12-24 15:39] VITALS: BP 114/62
== END 2017-12-24 15:42 | disposition home or self-care (01) ==
LOC: ER 09:23
DX: H92.01 Otalgia, right ear (principal); E87.6 Hypokalemia; R00.2 Palpitations; H93.11 Tinnitus, right ear; I25.10 Atherosclerotic heart disease of native coronary artery without angina pectoris; R51 Headache; Z95.1 Presence of aortocoronary bypass graft; Z86.19 Personal history of other infectious and parasitic diseases
CPT/HCPCS: 93005; 99285; 36415; 82553; 82550; 85025; 80053; 84484; 71045; 70450; 93010; A9270

== ENCOUNTER 2018-01-12 00:11 | Emergency (ER) | payer MEDICARE, MEDICAID ==
[2018-01-12] MEDS ORDERED: TRAMADOL HCL 50 MG TABLET PO ONE (01:18)
--- NOTE | 2018-01-12 01:22 | ER Document Report ---
ED General - General Chief Complaint: Hand Pain Stated Complaint: RIGHT HAND PAIN Time Seen by Provider: 01/12/18 01:10 Notes: Patient describes it as a aching, throbbing, constant pain worsened by moving the wrist or using the wrist. She states that she has had this issue recurrently in the past related to gout. She states that she takes colchicine daily but that this has not improved her pain. Denies chest pain, shortness of breath, neck pain or pain to any other location other than her right wrist. She has not tried anything to improve the pain but. She has not seen her general doctor regarding today's concerns. No trauma to the wrist. TRAVEL OUTSIDE OF THE [place] IN LAST 30 DAYS: No - Related Data Allergies/Adverse Reactions: Penicillins Allergy (Verified 12/24/17 09:25) Hives, Dizziness Past Medical History - General Information source: Patient - Social History Smoking Status: Never Smoker Chew tobacco use (# tins/day): No Frequency of alcohol use: None Drug Abuse: None Lives with: Alone Family History: Reviewed & Not Pertinent Patient has suicidal ideation: No Patient has homicidal ideation: No - Past Medical History Cardiac Medical History: Reports: Hx Atrial Fibrillation, Hx Coronary Artery Disease, Hx Hypercholesterolemia, Hx Hypertension Denies: Hx Congestive Heart Failure, Hx Heart Attack, Hx Peripheral Vascular Disease, Hx Pulmonary Embolism, Hx Heart Murmur Pulmonary Medical History: Reports: Hx Asthma, Hx Bronchitis, Hx COPD, Hx Pneumonia - long time ago, Hx Sleep Apnea Denies: Hx Respiratory Failure, Hx Tuberculosis Neurological Medical History: Denies: Hx Seizures Endocrine Medical History: Reports: Hx Diabetes Mellitus Type 2 Renal/ Medical History: Reports: Hx Renal Insufficiency. Denies: Hx End Stage Renal Disease, Hx Peritoneal Dialysis Malignancy Medical History: Denies: Hx Lung Cancer GI Medical History: Reports: Hx Gastroesophageal Reflux Disease. Denies: Hx Crohn's Disease, Hx Hiatal Hernia, Hx Pancreatitis Musculoskeletal Medical History: Reports Hx Arthritis, Denies Hx Fibromyalgia, Reports Hx Gout Psychiatric Medical History: Denies: Hx Dementia, Hx Depression Past Surgical History: Reports: Hx Cardiac Catheterization - 08-08-2013, Hx Cardiac Surgery, Hx Section, Hx Coronary Artery Bypass Graft - 4 vessel CABG in 2000. Denies: Hx Appendectomy, Hx Cholecystectomy, Hx Colostomy , Hx Gastric Bypass Surgery, Hx Herniorrhaphy, Hx Hysterectomy, Hx Mastectomy, Hx Pacemaker, Hx Tonsillectomy, Hx Tubal Ligation - Immunizations Immunizations up to date: Yes Hx Diphtheria, Pertussis, Tetanus Vaccination: Yes Hx Pneumococcal Vaccination: 01/10/17 Review of Systems - Review of Systems Notes: Constitutional: Negative for fever. HENT: Negative for sore throat. Eyes: Negative for visual changes. Cardiovascular: Negative for chest pain. Respiratory: Negative for shortness of breath. Gastrointestinal: Negative for abdominal pain, vomiting or diarrhea. Genitourinary: Negative for dysuria. Musculoskeletal: Positive for right wrist pain Skin: Negative for rash. Neurological: Negative for headaches, weakness or numbness. 10 point ROS negative except as marked above and in HPI. Physical Exam - Vital signs Vitals: Temp Pulse Resp BP Pulse Ox 98.4 F 84 18 162/69 H 99 01/12/18 00:14 01/12/18 00:14 01/12/18 00:14 01/12/18 00:14 01/12/18 00:14 Interpretation: Hypertensive Notes: PHYSICAL EXAMINATION: GENERAL: Well-appearing, well-nourished and in no acute distress. HEAD: Atraumatic, normocephalic. EYES: Pupils equal round and reactive to light, extraocular movements intact, sclera anicteric, conjunctiva are normal. ENT: nares patent, oropharynx clear without exudates. Moist mucous membranes. NECK: Normal range of motion, supple without lymphadenopathy LUNGS: Breath sounds clear to auscultation bilaterally and equal. No wheezes rales or rhonchi. HEART: Regular rate and rhythm without murmurs ABDOMEN: Soft, nontender, normoactive bowel sounds. No guarding, no rebound. No masses appreciated. EXTREMITIES: Normal range of motion, no pitting or edema. Pain on palpation of the ulnar aspect of the right wrist. No cyanosis. NEUROLOGICAL: No focal neurological deficits. Moves all extremities spontaneously and on command. PSYCH: Normal mood, normal affect. SKIN: Warm, Dry, normal turgor, no rashes or lesions noted. Course - Re-evaluation Re-evalutation: 01/12/18 01:20 Patient presents with 24 hours of swelling and pain to her right ulnar wrist. No appreciable swelling on exam. Patient states this feels identical to previous gout flares that she has had in the past, is asking for something for pain but is stating clear that she does not wish to be placed on prednisone that she has in the past and she is currently treating multiple teeth infections with antibiotics and does not want to suppress her immune system. She apparently is on colchicine as an outpatient although I question this because the patient does have chronic kidney disease. The patient states she is unable to take Tylenol as this is caused adverse events in the past. I have excellent the patient this does severely restrict her options but we could try a topical NSAID such as Voltaren over the area as this may reduce this the swelling and pain and should have minimal systemic absorption. Will also prescribe a small amount of tramadol have reduce the pain in the interim. I do not suspect a septic joint, no trauma to suspect an acute fracture. No indication for imaging or labs. At this time will discharge with return precautions and follow-up recommendations. Verbal discharge instructions given a the bedside and opportunity for questions given. Medication warnings reviewed. Patient is in agreement with this plan and has verbalized understanding of return precautions and the need for primary care follow-up in the next 24-72 hours. - Vital Signs Vital signs: Temp Pulse Resp BP Pulse Ox 98.4 F 84 18 162/69 H 99 01/12/18 00:14 01/12/18 00:14 01/12/18 00:14 01/12/18 00:14 01/12/18 00:14 Discharge - Discharge Clinical Impression: Gout Qualifiers: Gout site: wrist Gout etiology: unspecified cause Chronicity: acute Laterality : right Qualified Code(s): M10.9 - Gout, unspecified Condition: Good Disposition: HOME, SELF-CARE Additional Instructions: Your seen today for a gout flare in your right wrist. Your chronic kidney issues do limit some of the options for treatment of gout and you have declined steroids. We will therefore trial topical diclofenac over the wrist. This is low absorption into your system and is generally much safer than oral NSAIDs. You have also been prescribed a small amount of tramadol that can be used for pain uncontrolled with your home medications or the topical diclofenac. Please return if you develop worsening swelling of the wrist, develop fever, develop weakness or numbness, or have any other symptoms that are worrisome to you. Prescriptions: Diclofenac Sodium [Voltaren] 4 gm TP TID PRN #100 gel..gram. PRN Reason: Tramadol HCl 50 mg PO Q6H PRN #8 tablet PRN Reason: Severe Pain Referrals: TAMMIE COSTA MD [Primary Care Provider] - Follow up as needed
[2018-01-12 06:03] VITALS: BP 135/86
== END 2018-01-12 01:55 | disposition home or self-care (01) ==
LOC: ER 00:11
DX: M10.9 Gout, unspecified (principal); Z79.899 Other long term (current) drug therapy; M25.531 Pain in right wrist; K04.7 Periapical abscess without sinus; I12.9 Hypertensive chronic kidney disease with stage 1 through stage 4 chronic kidney disease, or unspecified chronic kidney disease; E11.22 Type 2 diabetes mellitus with diabetic chronic kidney disease; N18.9 Chronic kidney disease, unspecified; I25.10 Atherosclerotic heart disease of native coronary artery without angina pectoris; J44.9 Chronic obstructive pulmonary disease, unspecified; Z88.0 Allergy status to penicillin; Z95.1 Presence of aortocoronary bypass graft
CPT/HCPCS: 99283; A9270

== ENCOUNTER 2018-04-02 23:55 | Emergency (ER) | payer MEDICARE, MEDICAID ==
[2018-04-03] MEDS ORDERED: ASPIRIN 81 MG TABLET, CHEWABLE PO ONE (01:13)
--- NOTE | 2018-04-03 02:53 | RADIOLOGY REPORT (SQ) ---
EXAM DESCRIPTION: XR CHEST 1 VIEW COMPLETED DATE/TME: 04/03/2018 01:13 CLINICAL HISTORY: 67 years, Female, CP COMPARISON: 12/24/2017 chest NUMBER OF VIEWS: 1 TECHNIQUE: Portable chest LIMITATIONS: None. FINDINGS: . Heart size is stable. Stable postsurgical change. Atheromatous change thoracic aorta. Osteopenia. Lungs are clear. No pneumothorax IMPRESSION: No acute cardiopulmonary process copyright 2010 [employer]- All Rights Reserved
[2018-04-03 03:14] LABS: ABSOLUTE BASOPHILS # (AUTO) 0.1 10^3/uL (0.0-0.2); ABSOLUTE EOSINOPHILS # (AUTO) 0.1 10^3/uL (0.0-0.6); ABSOLUTE LYMPHOCYTES (AUTO) 2.2 10^3/uL (0.5-4.7); BASOPHILS % (AUTO) 0.4 % (0-2); EOSINOPHILS % (AUTO) 0.6 % (0-6); HEMATOCRIT 36.9 % (36.0-47.0); HEMOGLOBIN 12.2 g/dL (12.0-15.5); LYMPHOCYTES % (AUTO) 14.3 % (13-45); MEAN CORPUSCULAR HEMOGLOBIN 29.4 pg (27.0-33.4); MEAN CORPUSCULAR HGB CONC 33.2 g/dL (32.0-36.0); MEAN CORPUSCULAR VOLUME 89 fl (80-97); MONOCYTES % (AUTO) 6.7 % (3-13); PLATELET COUNT 215 10^3/uL (150-450); RED BLOOD COUNT 4.17 10^6/uL (3.72-5.28); RED CELL DISTRIBUTION WIDTH 15.1 % (11.5-14.0); TOTAL CELLS COUNTED % (AUTO) 100 %; WHITE BLOOD COUNT 15.4 10^3/uL (4.0-10.5)
[2018-04-03 03:21] LABS: ALANINE AMINOTRANSFERASE 25 U/L (9-52); ALBUMIN 3.9 g/dL (3.5-5.0); ALKALINE PHOSPHATASE 101 U/L (38-126); ANION GAP 10 (5-19); ASPARTATE AMINO TRANSFERASE 18 U/L (14-36); BILIRUBIN,DIRECT 0.3 mg/dL (0.0-0.4); BILIRUBIN,TOTAL 0.6 mg/dL (0.2-1.3); BLOOD UREA NITROGEN 23 mg/dL (7-20); CALCIUM 9.2 mg/dL (8.4-10.2); CARBON DIOXIDE 28 mmol/L (22-30); CHLORIDE 102 mmol/L (98-107); CREATINE KINASE 39 U/L (30-135); GLUCOSE 185 mg/dL (75-110); POTASSIUM 3.8 mmol/L (3.6-5.0); SODIUM 139.7 mmol/L (137-145); TOTAL PROTEIN 6.6 g/dL (6.3-8.2)
[2018-04-03 03:33] LABS: CREATINE KINASE MB 0.37 ng/mL (<4.55)
[2018-04-03 03:36] LABS: TROPONIN I < 0.012 ng/mL
--- NOTE | 2018-04-03 03:42 | ER Document Report ---
ED Cardiac - General Chief Complaint: Palpitations Stated Complaint: HEART PALPITATIONS Time Seen by Provider: 04/03/18 03:42 Primary Care Provider: TAMMIE COSTA MD [Primary Care Provider] - Follow up as needed Mode of Arrival: Ambulatory Information source: Patient Notes: Patient is a 67-year-old female with a history of gout who presents with palpitations following her normal prescription of prednisone but she currently is tapering down from a gout flare. Patient currently feels no palpitations, never experienced pain, no shortness of breath, no recent fevers or chills. Patient believes this is happened before and reports that her physician "knows a ll about it but gave me the prednisone anyway." TRAVEL OUTSIDE OF THE [place] IN LAST 30 DAYS: No - HPI Patient complains to provider of: Palpitations Use of: Other - Prednisone Quality of pain: None Severity now: None Pain level currently: Denies Cardiac risk factors: None Positive cardiac history: No Associated symptoms: Palpitations Exacerbated by: Denies Relieved by: Nothing Similar symptoms previously: Yes Recently seen / treated by doctor: Yes - Related Data Allergies/Adverse Reactions: Penicillins Allergy (Verified 12/24/17 09:25) Hives, Dizziness Past Medical History - General Information source: Patient - Social History Smoking Status: Never Smoker Chew tobacco use (# tins/day): No Frequency of alcohol use: None Drug Abuse: None Lives with: Family Family History: Reviewed & Not Pertinent Patient has suicidal ideation: No Patient has homicidal ideation: No - Past Medical History Cardiac Medical History: Reports: Hx Atrial Fibrillation, Hx Coronary Artery Disease, Hx Hypercholesterolemia, Hx Hypertension Denies: Hx Congestive Heart Failure, Hx Heart Attack, Hx Peripheral Vascular Disease, Hx Pulmonary Embolism, Hx Heart Murmur Pulmonary Medical History: Reports: Hx Asthma, Hx Bronchitis, Hx COPD, Hx Pneumonia - long time ago, Hx Sleep Apnea Denies: Hx Respiratory Failure, Hx Tuberculosis EENT Medical History: Reports: None Neurological Medical History: Reports: None. Denies: Hx Seizures Endocrine Medical History: Reports: Hx Diabetes Mellitus Type 2 Renal/ Medical History: Reports: Hx Renal Insufficiency. Denies: Hx End Stage Renal Disease, Hx Peritoneal Dialysis Malignancy Medical History: Reports: None. Denies: Hx Lung Cancer GI Medical History: Reports: Hx Gastroesophageal Reflux Disease. Denies: Hx Crohn's Disease, Hx Hiatal Hernia, Hx Pancreatitis Musculoskeletal Medical History: Reports Hx Arthritis, Denies Hx Fibromyalgia, Reports Hx Gout Skin Medical History: Reports None Psychiatric Medical History: Reports: None Denies: Hx Dementia, Hx Depression Traumatic Medical History: Reports: None Infectious Medical History: Reports: None Past Surgical History: Reports: Hx Cardiac Catheterization - 08-08-2013, Hx Cardiac Surgery - bypass, Hx Section - x1, Hx Coronary Artery Bypass Graft - 4 vessel CABG in 2000. Denies: Hx Appendectomy, Hx Cholecystectomy, Hx Colostomy, Hx Gastric Bypass Surgery, Hx Herniorrhaphy, Hx Hysterectomy, Hx Mastectomy, Hx Pacemaker, Hx Tonsillectomy, Hx Tubal Ligation - Immunizations Immunizations up to date: Yes Hx Diphtheria, Pertussis, Tetanus Vaccination: Yes Hx Pneumococcal Vaccination: 01/10/17 Review of Systems - Review of Systems Constitutional: No symptoms reported EENT: No symptoms reported Cardiovascular: See HPI, Palpitations Respiratory: No symptoms reported Gastrointestinal: No symptoms reported Genitourinary: No symptoms reported Female Genitourinary: No symptoms reported Musculoskeletal: No symptoms reported Skin: No symptoms reported Hematologic/Lymphatic: No symptoms reported Neurological/Psychological: No symptoms reported -: Yes All other systems reviewed and negative Physical Exam - Vital signs Vitals: Temp Pulse Resp BP Pulse Ox 98.5 F 117 H 18 161/90 H 96 04/03/18 00:25 04/03/18 00:25 04/03/18 00:25 04/03/18 00:25 04/03/18 00:25 Interpretation: Normal - Notes Notes: Well-appearing in no acute distress - General General appearance: Appears well, Alert - HEENT Head: Normocephalic, Atraumatic Eyes: Normal Pupils: PERRL - Respiratory Respiratory status: No respiratory distress Chest status: Nontender Breath sounds: Normal Chest palpation: Normal - Cardiovascular Rhythm: Regular Heart sounds: Normal auscultation Murmur: No - Abdominal Inspection: Normal Distension: No distension Bowel sounds: Normal Tenderness: Nontender Organomegaly: No organomegaly - Rectal Notes: Deferred - Genitourinary Notes: Deferred - Back Back: Normal, Nontender - Extremities General upper extremity: Normal inspection, Nontender, Normal color, Normal ROM, Normal temperature General lower extremity: Normal inspection, Nontender, Normal color, Normal ROM, Normal temperature, Normal weight bearing. No: Liz's sign - Neurological Neuro grossly intact: Yes Cognition: Normal Orientation: AAOx4 Phillip Coma Scale Eye Opening: Spontaneous Phillip Coma Scale Verbal: Oriented [place] Coma Scale Motor: Obeys Commands [place] Coma Scale Total: 15 Speech: Normal Motor strength normal: LUE, RUE, LLE, RLE Sensory: Normal - Psychological Associated symptoms: Normal affect, Normal mood - Skin Skin Temperature: Warm Skin Moisture: Dry Skin Color: Normal Course - Re-evaluation Re-evalutation: 04/03/18 06:43 Labs, including 2 sets of cardiac enzymes, are negative. Patient has not experienced episodes of tachycardia or palpitations during this encounter. Most likely etiology is from prednisone, therefore patient was given a dose of colchicine and told to follow-up with her primary physician. She will be discharged home with return precautions, voices both understanding and agreeing with the plan. - Vital Signs Vital signs: Temp Pulse Resp BP Pulse Ox 98.5 F 117 H 16 156/57 H 98 04/03/18 00:25 04/03/18 00:25 04/03/18 05:09 04/03/18 05:09 04/03/18 05:09 - Laboratory Result Diagrams: 04/03/18 02:42 04/03/18 02:42 Laboratory results interpreted by me: 04/03/18 04/03/18 02:42 02:42 WBC 15.4 H RDW 15.1 H Absolute Neutrophils 12.0 H BUN 23 H Est GFR (Non-Af Amer) 56 L Glucose 185 H - Diagnostic Test Radiology reviewed: Image reviewed, Reports reviewed - EKG Interpretation by Me EKG shows normal: Sinus rhythm Rate: Normal Rhythm: NSR Williams/QRS: No: Right axis deviation, Left axis deviation, RBBB, LBBB, IVCD, LAHB/LAFB, LPHB/LPFB, Bifasicular block Voltage: No: Increased voltage, Consistant with LVH, Decreased voltage, Throughout, Limb leads When compared to previous EKG there are: No significant change Discharge - Discharge Clinical Impression: Palpitations Condition: Good Disposition: HOME, SELF-CARE Instructions: Palpitations (Irregular or Rapid Heartrate) (OM) Additional Instructions: Please follow-up with your regular physician as scheduled. Return to the emergency department if you experience episodes of lightheadedness, dizziness, chest pain, or have any other concerning symptoms. Referrals: TAMMIE COSTA MD [Primary Care Provider] - Follow up as needed Print Language: Turkish
[2018-04-03] MEDS ORDERED: COLCHICINE 0.6 MG TABLET PO ONE (05:24)
--- NOTE | 2018-04-03 07:29 | EKG REPORT ---
SEVERITY:- OTHERWISE NORMAL ECG - SINUS TACHYCARDIA : Confirmed by: Alison Garcia MD 03-Apr-2018 07:28:42
[2018-04-03 07:43] VITALS: BP 126/58
== END 2018-04-03 07:43 | disposition home or self-care (01) ==
LOC: ER 23:55
DX: R00.2 Palpitations (principal); I25.10 Atherosclerotic heart disease of native coronary artery without angina pectoris; I10 Essential (primary) hypertension; J44.9 Chronic obstructive pulmonary disease, unspecified; E11.9 Type 2 diabetes mellitus without complications
CPT/HCPCS: 93005; 99285; 36415; 82553; 82550; 85025; 80053; 84484; 71045; 93010; A9270

== ENCOUNTER 2018-05-30 16:06 | Emergency (ER) | payer MEDICARE, MEDICAID ==
[2018-05-30] MEDS ORDERED: IPRATROPIUM/ALBUTEROL 0.5-2.5 MG/3 ML AMPUL NEB ONE (16:34)
--- NOTE | 2018-05-30 16:41 | ER Document Report ---
ED General - General Chief Complaint: Cough Stated Complaint: COUGH Time Seen by Provider: 05/30/18 16:27 Primary Care Provider: TAMMIE COSTA MD [Primary Care Provider] - Follow up as needed Mode of Arrival: Ambulatory Information source: Patient TRAVEL OUTSIDE OF THE [place] IN LAST 30 DAYS: No - HPI Patient complains to provider of: Coughing, chest tightness, shortness of breath Onset: Other - 4 days ago Onset/Duration: Gradual Quality of pain: Other - tightness Severity: Severe Pain Level: 4 Associated symptoms: denies: Chills, Fever Exacerbated by: Coughing, Other - deep breathing Relieved by: Denies Similar symptoms previously: No Recently seen / treated by doctor: No Notes: 68-year-old female with history of CABG and stents here with coughing for 4 days with a productive cough. She is also complaining of some anterior chest tightne ss and shortness of breath. She was concerned it might be her heart because of her extensive cardiac history. She is on oral steroids currently for gout. She takes Symbicort inhaler for COPD. - Related Data Allergies/Adverse Reactions: Penicillins Allergy (Verified 12/24/17 09:25) Hives, Dizziness Past Medical History - General Information source: Patient - Social History Smoking Status: Unknown if Ever Smoked Chew tobacco use (# tins/day): No Frequency of alcohol use: None Drug Abuse: None Family History: Reviewed & Not Pertinent Patient has suicidal ideation: No Patient has homicidal ideation: No - Past Medical History Cardiac Medical History: Reports: Hx Atrial Fibrillation, Hx Coronary Artery Disease, Hx Hypercholesterolemia, Hx Hypertension Denies: Hx Congestive Heart Failure, Hx Heart Attack, Hx Peripheral Vascular Disease, Hx Pulmonary Embolism, Hx Heart Murmur Pulmonary Medical History: Reports: Hx Asthma, Hx Bronchitis, Hx COPD, Hx Pneumonia - long time ago, Hx Sleep Apnea Denies: Hx Respiratory Failure, Hx Tuberculosis Neurological Medical History: Denies: Hx Seizures Endocrine Medical History: Reports: Hx Diabetes Mellitus Type 2 Renal/ Medical History: Reports: Hx Renal Insufficiency. Denies: Hx End Stage Renal Disease, Hx Peritoneal Dialysis Malignancy Medical History: Denies: Hx Lung Cancer GI Medical History: Reports: Hx Gastroesophageal Reflux Disease. Denies: Hx Crohn's Disease, Hx Hiatal Hernia, Hx Pancreatitis Musculoskeletal Medical History: Reports Hx Arthritis, Denies Hx Fibromyalgia, Reports Hx Gout Psychiatric Medical History: Denies: Hx Dementia, Hx Depression Past Surgical History: Reports: Hx Cardiac Catheterization - 08-08-2013, Hx Cardiac Surgery - bypass, Hx Section - x1, Hx Coronary Artery Bypass Graft - 4 vessel CABG in 2000. Denies: Hx Appendectomy, Hx Cholecystectomy, Hx Colostomy, Hx Gastric Bypass Surgery, Hx Herniorrhaphy, Hx Hysterectomy, Hx Mas tectomy, Hx Pacemaker, Hx Tonsillectomy, Hx Tubal Ligation - Immunizations Immunizations up to date: Yes Hx Diphtheria, Pertussis, Tetanus Vaccination: Yes Hx Pneumococcal Vaccination: 01/10/17 Review of Systems - Review of Systems Notes: Constitutional: No fevers. No chills. EENT: No eye redness. No eye pain. No ear pain. No sore throat. Cardiovascular: Positive chest pain. To get up for palpitations Respiratory: Positive for cough and shortness of breath Gastrointestinal: No abdominal pain. No nausea, vomiting, or diarrhea. Genitourinary: Atraumatic. No lesions. No pain. No discharge. Musculoskeletal: Atraumatic. No swelling. No deformities. Skin: No rash or lesions. Lymphatic: No swollen lymph nodes. Neurologic: No headache. No syncope. Psychiatric: No suicidal or homicidal ideation. Physical Exam - Vital signs Vitals: Temp Pulse Resp BP Pulse Ox 98.2 F 78 20 169/75 H 96 05/30/18 16:15 05/30/18 16:15 05/30/18 16:15 05/30/18 16:15 05/30/18 16:15 - Notes Notes: General: Well-developed, well-nourished. In no acute distress. Non-toxic appearing. Cardiac: Well-perfused. Regular rate and rhythm. No murmurs, rubs, or gallops. Pulmonary: No respiratory distress. No cyanosis. Diminished breath sounds bilaterally Abdominal: Non-distended. Non-rigid. Bowels sounds are present in all four quadrants. No guarding or rebound. HEENT: Head is atraumatic. Conjunctivae not reddened. No tearing. PERRL. EOMI. Orbits atraumatic. No periorbital swelling or erythema. Oropharynx is without erythema, swelling, or exudates. Neck: Supple. No adenopathy. No meningismus. Dermatologic: Warm with good turgor. No rash. Atraumatic. Chest: Atraumatic. No chest wall tenderness to palpation. Musculoskeletal: Moves all extremities well. No range of motion deficits. no muscular or joint tenderness. No paraspinal muscle tenderness. no midline spinal tenderness or step-off. Genitourinary: Examination deferred Neurologic: No gross neurologic deficits. Psychiatric: Normal mood. Course - Re-evaluation Re-evalutation: 05/30/18 16:40 This may be upper respiratory or bronchitis or pneumonia. We will also need to run a full cardiac workup given patient's extensive cardiac history 05/30/18 18:43 Patient's symptoms have fully resolved after multiple albuterol treatments. Her workup is completely normal. She is Kelechi taking prednisone for gout. It does not sound like she is using her nebulizer as often as she should. She does have a little bit of renal insufficiency which she has had in the past. I will have her follow-up with Dr. Costa tomorrow 05/30/18 18:44 Patient also requested that I refill her clindamycin that she is taking every 6 hours for her left upper dental pain. - Vital Signs Vital signs: Temp Pulse Resp BP Pulse Ox 98.2 F 78 13 145/66 H 96 05/30/18 16:15 05/30/18 16:15 05/30/18 18:01 05/30/18 18:01 05/30/18 18:01 - Laboratory Result Diagrams: 05/30/18 17:00 05/30/18 17:00 Laboratory results interpreted by me: 05/30/18 05/30/18 17:00 17:00 WBC 11.0 H RDW 14.1 H Potassium 3.4 L Chloride 96 L Carbon Dioxide 31 H BUN 26 H Creatinine 1.34 H Est GFR ( Amer) 47 L Est GFR (Non-Af Amer) 39 L Glucose 148 H Calcium 10.5 H Total Protein 8.4 H - Diagnostic Test Radiology reviewed: Reports reviewed - EKG Interpretation by Me EKG shows normal: Sinus rhythm, [place], Intervals, QRS Complexes, ST-T Waves Discharge - Discharge Clinical Impression: Pain, dental, Renal insufficiency Upper respiratory infection Qualifiers: URI type: unspecified URI Qualified Code(s): J06.9 - Acute upper respiratory infection, unspecified Condition: Good Disposition: HOME, SELF-CARE Instructions: Clindamycin ([facility]), Upper Respiratory Illness ([facility]), Toothache ([facility]) Additional Instructions: If your chest tightness does not improve with breathing treatments or you feel worsening symptoms including squeezing, sweatiness, radiation of the pain, or increased shortness of breath, please return to the hospital immediately. Otherwise go ahead and follow-up with Dr. Costa tomorrow Prescriptions: Albuterol Sulfate [Ventolin 0.083% Neb 2.5 mg/3 mL Ampul] 1 vial NEB Q4 #120 units Clindamycin HCl [Cleocin 150 mg Capsule] 150 mg PO Q6 #40 capsule Referrals: TAMMIE COSTA MD [Primary Care Provider] - Follow up tomorrow
--- NOTE | 2018-05-30 16:53 | RADIOLOGY REPORT (SQ) ---
EXAM DESCRIPTION: CHEST SINGLE VIEW COMPLETED DATE/TIME: 05/30/2018 4:48 pm REASON FOR STUDY: albino, grey COMPARISON: 04/03/2018 EXAM PARAMETERS: NUMBER OF VIEWS: One view. TECHNIQUE: Single frontal radiographic view of the chest acquired. RADIATION DOSE: NA LIMITATIONS: None. FINDINGS: LUNGS AND PLEURA: No opacities, masses or pneumothorax. No pleural effusion. MEDIASTINUM AND HILAR STRUCTURES: No masses. Contour normal. HEART AND VASCULAR STRUCTURES: Heart normal in size. Normal vasculature. BONES: No acute findings. HARDWARE: Prior anterior median sternotomy. OTHER: No other significant finding. IMPRESSION: NO ACUTE RADIOGRAPHIC FINDING IN THE CHEST. TECHNICAL DOCUMENTATION: JOB ID: [id number] [employer]- All Rights Reserved Reading location - IP/workstation name: [email or web address]
[2018-05-30 17:16] LABS: ABSOLUTE BASOPHILS # (AUTO) 0.1 10^3/uL (0.0-0.2); ABSOLUTE EOSINOPHILS # (AUTO) 0.1 10^3/uL (0.0-0.6); ABSOLUTE LYMPHOCYTES (AUTO) 2.8 10^3/uL (0.5-4.7); ABSOLUTE MONOCYTES (AUTO) 1.1 10^3/uL (0.1-1.4); ABSOLUTE NEUT (AUTO) 6.8 10^3/uL (1.7-8.2); BASOPHILS % (AUTO) 0.7 % (0-2); HEMATOCRIT 40.6 % (36.0-47.0); HEMOGLOBIN 13.6 g/dL (12.0-15.5); LYMPHOCYTES % (AUTO) 25.7 % (13-45); MEAN CORPUSCULAR HEMOGLOBIN 29.4 pg (27.0-33.4); MEAN CORPUSCULAR HGB CONC 33.6 g/dL (32.0-36.0); MEAN CORPUSCULAR VOLUME 87 fl (80-97); MONOCYTES % (AUTO) 10.5 % (3-13); PLATELET COUNT 340 10^3/uL (150-450); RED BLOOD COUNT 4.65 10^6/uL (3.72-5.28); RED CELL DISTRIBUTION WIDTH 14.1 % (11.5-14.0); SEGMENTED NEUTROPHILS % (AUTO) 62.1 % (42-78); TOTAL CELLS COUNTED % (AUTO) 100 %
[2018-05-30 17:24] LABS: ALANINE AMINOTRANSFERASE 25 U/L (9-52); ALBUMIN 4.5 g/dL (3.5-5.0); ALKALINE PHOSPHATASE 118 U/L (38-126); ANION GAP 15 (5-19); ASPARTATE AMINO TRANSFERASE 28 U/L (14-36); BILIRUBIN,DIRECT 0.4 mg/dL (0.0-0.4); BILIRUBIN,TOTAL 0.8 mg/dL (0.2-1.3); BLOOD UREA NITROGEN 26 mg/dL (7-20); CALCIUM 10.5 mg/dL (8.4-10.2); CARBON DIOXIDE 31 mmol/L (22-30); CHLORIDE 96 mmol/L (98-107); GLUCOSE 148 mg/dL (75-110); POTASSIUM 3.4 mmol/L (3.6-5.0); TOTAL PROTEIN 8.4 g/dL (6.3-8.2)
[2018-05-30 17:35] LABS: NT PRO BNP 442 pg/mL (5-900)
[2018-05-30 17:35] LABS: A TYPE INFLUENZA AG NEGATIVE (NEGATIVE); B INFLUENZA AG NEGATIVE (NEGATIVE)
[2018-05-30 17:38] LABS: TROPONIN I < 0.012 ng/mL
[2018-05-30 18:07] VITALS: BP 145/66
--- NOTE | 2018-05-30 22:59 | EKG REPORT ---
SEVERITY:- NORMAL ECG - SINUS RHYTHM : Confirmed by: Alondra Guan 30-May-2018 22:59:22
== END 2018-05-30 18:55 | disposition home or self-care (01) ==
LOC: ER 16:06
DX: J06.9 Acute upper respiratory infection, unspecified (principal); K08.9 Disorder of teeth and supporting structures, unspecified; N28.9 Disorder of kidney and ureter, unspecified; R07.9 Chest pain, unspecified; R06.02 Shortness of breath; Z95.1 Presence of aortocoronary bypass graft; Z88.0 Allergy status to penicillin
CPT/HCPCS: 93005; 94640; 99284; 36415; 85025; 80053; 84484; 87804; 83880; 71045; 93010; A9270; J7620

== ENCOUNTER 2018-06-25 18:16 | Emergency (ER) | payer MEDICARE, MEDICAID ==
[2018-06-25] MEDS ORDERED: DEXAMETHASONE SOD PHOS INJ 10 MG/1 ML VIAL IM ONE (20:28)
--- NOTE | 2018-06-25 21:06 | ER Document Report ---
Addendum entered and electronically signed by KARIN BRADSHAW FNP-C 06/26/18 09:34: Discharge - Discharge Clinical Impression: Gout attack Qualifiers: Gout site: foot Gout etiology: idiopathic Laterality: left Qualified Code(s): M10.072 - Idiopathic gout, left ankle and foot Condition: Good Disposition: HOME, SELF-CARE Instructions: Gout ([facility]), Gout Diet ([facility]) Additional Instructions: As we discussed she can start the steroid taper at 6 pills day [id number] Costa's office tomorrow for a follow-up and continuation of care. Return to ER for any concerns or problems. Prescriptions: Prednisone 5 mg PO ASDIR PRN #1 tab.ds.pk PRN Reason: Forms: Elevated Blood Pressure Referrals: TAMMIE COSTA MD [Primary Care Provider] - Follow up as needed Course - Re-evaluation Re-evalutation: 06/26/18 09:33 clarified prednsione dose pack with pharmacy, read back to pharmacist what Jey Rice put in note for sig. - Vital Signs Vital signs: Temp Pulse Resp BP Pulse Ox 58 L 16 180/64 H 97 06/25/18 21:18 06/25/18 21:18 06/25/18 21:18 06/25/18 21:18 Addendum entered and electronically signed by JEY RICE PA-C 06/25/18 21:09: Discharge - Discharge Clinical Impression: Gout attack Qualifiers: Gout site: foot Gout etiology: idiopathic Laterality: left Qualified Code(s): M10.072 - Idiopathic gout, left ankle and foot Condition: Good Disposition: HOME, SELF-CARE Instructions: Gout ([facility]), Gout Diet ([facility]) Additional Instructions: As we discussed she can start the steroid taper at 6 pills day [id number] Costa's office tomorrow for a follow-up and continuation of care. Return to ER for any concerns or problems. Prescriptions: Prednisone 5 mg PO ASDIR PRN #1 tab.ds.pk PRN Reason: Forms: Elevated Blood Pressure Referrals: TAMMIE COSTA MD [Primary Care Provider] - Follow up as needed Original Note: ED Extremity Problem, Lower - General Chief Complaint: Foot Pain Stated Complaint: LEFT FOOT PAIN Time Seen by Provider: 06/25/18 20:27 Primary Care Provider: TAMMIE COSTA MD [Primary Care Provider] - Follow up as needed Mode of Arrival: Wheelchair Information source: Patient Notes: Patient is a 68-year-old female comes emergency room complaining of left ankle pain and foot pain. Patient has a history of gout states this is her normal presentation for gout. She attempted to contact her physician's office Dr. Costa yesterday and today and has had no call back. She usually takes a steroid taper when she first notices the discomfort and she was unable to do so because she did not have any on hand. None has been called and is from her arriving to [facility]. Patient usually takes a 5 mg 6-day taper and is requesting that be refilled. She complains of red swollen area on the medial posterior area of the left heel. There is moderate swelling. She denies any other problems at this time. Patient has a history of A. fib, hypertension, COPD, TRAVEL OUTSIDE OF THE [place] IN LAST 30 DAYS: No - HPI Patient complains to provider of: Pain, Swelling Location: Foot Occurred: Other - 2 days Where: Home Onset/Duration: Gradual Quality of pain: Achy, Sharp Severity: Moderate Pain Level: 3 Context: denies: Burn, Crush, Direct blow, Fell, Prolonged pressure on ext, Recent immobilization, Recent surgery, Recent travel, Stubbed, Twisted Recent injury: No Relieved by: Nothing, Rest - Related Data Allergies/Adverse Reactions: Penicillins Allergy (Verified 12/24/17 09:25) Hives, Dizziness Past Medical History - General Information source: Patient - Social History Smoking Status: Never Smoker Frequency of alcohol use: None Drug Abuse: None Family History: Reviewed & Not Pertinent Patient has suicidal ideation: No Patient has homicidal ideation: No - Past Medical History Cardiac Medical History: Reports: Hx Atrial Fibrillation, Hx Coronary Artery D isease, Hx Hypercholesterolemia, Hx Hypertension Denies: Hx Congestive Heart Failure, Hx Heart Attack, Hx Peripheral Vascular Disease, Hx Pulmonary Embolism, Hx Heart Murmur Pulmonary Medical History: Reports: Hx Asthma, Hx Bronchitis, Hx COPD, Hx Pneumonia - long time ago, Hx Sleep Apnea Denies: Hx Respiratory Failure, Hx Tuberculosis Neurological Medical History: Denies: Hx Seizures Endocrine Medical History: Reports: Hx Diabetes Mellitus Type 2 Renal/ Medical History: Reports: Hx Renal Insufficiency. Denies: Hx End Stage Renal Disease, Hx Peritoneal Dialysis Malignancy Medical History: Denies: Hx Lung Cancer GI Medical History: Reports: Hx Gastroesophageal Reflux Disease. Denies: Hx Crohn's Disease, Hx Hiatal Hernia, Hx Pancreatitis Musculoskeletal Medical History: Reports Hx Arthritis, Denies Hx Fibromyalgia, Reports Hx Gout Psychiatric Medical History: Denies: Hx Dementia, Hx Depression Past Surgical History: Reports: Hx Cardiac Catheterization - 08-08-2013, Hx Cardiac Surgery - bypass, Hx Section - x1, Hx Coronary Artery Bypass Graft - 4 vessel CABG in 2000. Denies: Hx Appendectomy, Hx Cholecystectomy, Hx Colostomy, Hx Gastric Bypass Surgery, Hx Herniorrhaphy, Hx Hysterectomy, Hx Mastectomy, Hx Pacemaker, Hx Tonsillectomy, Hx Tubal Ligation - Immunizations Immunizations up to date: Yes Hx Diphtheria, Pertussis, Tetanus Vaccination: Yes Hx Pneumococcal Vaccination: 01/10/17 Review of Systems - Review of Systems Constitutional: No symptoms reported EENT: No symptoms reported Cardiovascular: No symptoms reported Respiratory: No symptoms reported Gastrointestinal: No symptoms reported Genitourinary: No symptoms reported Female Genitourinary: No symptoms reported Musculoskeletal: See HPI, Joint pain Skin: No symptoms reported Hematologic/Lymphatic: No symptoms reported Neurological/Psychological: No symptoms reported -: Yes All other systems reviewed and negative Physical Exam - Vital signs Interpretation: Normal Notes: As of my dictation patient's vital signs were stable however they have not been entered yet. - Notes Notes: PHYSICAL EXAMINATION: GENERAL: Well-appearing, well-nourished and in no acute distress. HEAD: Atraumatic, normocephalic. EYES: Pupils equal round and reactive to light, extraocular movements intact, conjunctiva are normal. ENT: Nares patent, oropharynx clear without exudates. Moist mucous membranes. LUNGS: Breath sounds clear to auscultation bilaterally and equal. No wheezes rales or rhonchi. HEART: Regular rate and rhythm without murmurs Female : deferred Musculoskeletal: Examination patient's area of concern is her left foot and heel area. There is moderate amount of swelling on the medial and posterior portion of the heel and anterior foot. Moderate warmth to touch. Patient has full range of motion but with discomfort. She has good dorsalis pedal pulse and posterior tibial pulses are normal. Presentation is that 1 of gout. Patient also states that this is her normal presentation when she gets gout. NEUROLOGICAL: Normal speech, normal gait. Normal sensory, motor exams PSYCH: Normal mood, normal affect. SKIN: See musculoskeletal above Course - Re-evaluation Re-evalutation: 06/25/18 21:05 Patient was given a shot IV steroids here and sent home on a 6-day taper. Patient is fine with this idea and will contact Dr. Costa's office first thing in the morning again. Discharge - Discharge Clinical Impression: Gout attack Qualifiers: Gout site: foot Gout etiology: idiopathic Laterality: left Qualified Code(s): M10.072 - Idiopathic gout, left ankle and foot Condition: Good Disposition: HOME, SELF-CARE Instructions: Gout ([facility]), Gout Diet ([facility]) Additional Instructions: As we discussed she can start the steroid taper at 6 pills day [id number] Costa's office tomorrow for a follow-up and continuation of care. Return to ER for any concerns or problems. Prescriptions: Prednisone 5 mg PO ASDIR PRN #1 tab.ds.pk PRN Reason: Forms: Elevated Blood Pressure Referrals: TAMMIE COSTA MD [Primary Care Provider] - Follow up as needed
[2018-06-25 21:18] VITALS: BP 180/64
== END 2018-06-25 21:20 | disposition home or self-care (01) ==
LOC: ER 18:16
DX: M10.072 Idiopathic gout, left ankle and foot (principal); M25.572 Pain in left ankle and joints of left foot; M79.672 Pain in left foot; E11.9 Type 2 diabetes mellitus without complications; I25.10 Atherosclerotic heart disease of native coronary artery without angina pectoris; J44.9 Chronic obstructive pulmonary disease, unspecified; I10 Essential (primary) hypertension; Z95.1 Presence of aortocoronary bypass graft
CPT/HCPCS: 99283; 96372; J1100

== ENCOUNTER → 2018-09-17 | Outpatient (CLI) | payer MEDICARE ==
--- NOTE | 2018-09-18 08:05 | WOMENS IMAGING REPORT ---
EXAM DESCRIPTION: 3D SCREENING MAMMO BILAT COMPLETED DATE/TIME: 09/17/2018 8:45 am REASON FOR STUDY: Z12.31 ROUTINE 3D BILATERAL SCREENING Z12.31 ENCNTR SCREEN MAMMOGRAM FOR MALIGNAN T NEOPLASM OF [place] COMPARISON: Multiple since 2012 EXAM PARAMETERS: Standard craniocaudal and mediolateral oblique views of each breast recorded using digital acquisition and breast tomosynthesis. Read with the assistance of CAD. .[facility] - [employer] Version 9.2 LIMITATIONS: None. FINDINGS: Findings present which are benign by mammographic criteria. No suspicious masses, calcific ations or architectural distortion. Pertinent benign findings: Benign arterial vascular calcifications. Benign right breast 8 to 9 o'baldemar ck position intramammary lymph node Benign mammographic findings may include one or more of the following: Smooth masses, popcorn/rim/coa rse calcifications, asymmetries, post-procedure changes, and lesions with long-standing stability. IMPRESSION: BENIGN MAMMOGRAPHIC FINDINGS. BIRADS 2 BREAST DENSITY: b. There are scattered areas of fibroglandular density. BIRAD: ASSESSMENT: 2 BENIGN FINDING(S) RECOMMENDATION: ROUTINE SCREENING COMMENT: The patient has been notified of the results by letter per MQSA requirements. Additional no tification policies are in place for contacting patient with suspicious or incomplete findings. Quality ID #[id number]: The [employer] recommends an annual screening mammogram for women aged 40 years or over. This facility utilizes a reminder system to ensure that all patients receive reminder letters, and/or direct phone calls for appointments. This includes reminders for routine scr eening mammograms, diagnostic mammograms, or other Breast Imaging Interventions when appropriate. Th is patient will be placed in the appropriate reminder system. TECHNICAL DOCUMENTATION: FINDING NUMBER: (1) ASSESSMENT: (1) JOB ID: [id number] [employer]- All Rights Reserved Reading location - IP/workstation name: [email or web address]
== END ==
LOC: WI 07:59
PROVIDERS: ATTEND Internal Medicine
DX: Z12.31 Encounter for screening mammogram for malignant neoplasm of breast (principal)
CPT/HCPCS: 77063; 77067

== ENCOUNTER 2018-12-23 00:56 | Observation (INO) | payer MEDICARE, MEDICAID ==
[2018-12-23 01:43] LABS: ALBUMIN 3.2 g/dL (3.5-5.0); ALKALINE PHOSPHATASE 92 U/L (38-126); ANION GAP 8 (5-19); ASPARTATE AMINO TRANSFERASE 19 U/L (14-36); BILIRUBIN,DIRECT 0.1 mg/dL (0.0-0.4); BILIRUBIN,TOTAL 0.4 mg/dL (0.2-1.3); BLOOD UREA NITROGEN 23 mg/dL (7-20); CALCIUM 8.4 mg/dL (8.4-10.2); CARBON DIOXIDE 28 mmol/L (22-30); CHLORIDE 104 mmol/L (98-107); CREATINE KINASE 32 U/L (30-135); GLUCOSE 150 mg/dL (75-110); POTASSIUM 3.6 mmol/L (3.6-5.0); TOTAL PROTEIN 6.4 g/dL (6.3-8.2)
--- NOTE | 2018-12-23 01:45 | RADIOLOGY REPORT (SQ) ---
XR CHEST 1 VIEW EXAM DATE: 12/23/2018 1:20 AM CDT HISTORY: Chest tightness. COMPARISON: 05/30/2018 FINDINGS: The heart size is mildly enlarged with prior cardiac surgery noted. No consolidation, pleural effusion, or pneumothorax is seen. No acute bony findings. IMPRESSION: No evidence of acute cardiopulmonary disease.
[2018-12-23 01:53] LABS: ABSOLUTE BASOPHILS # (AUTO) 0.1 10^3/uL (0.0-0.2); ABSOLUTE EOSINOPHILS # (AUTO) 0.2 10^3/uL (0.0-0.6); ABSOLUTE LYMPHOCYTES (AUTO) 2.6 10^3/uL (0.5-4.7); ABSOLUTE MONOCYTES (AUTO) 0.7 10^3/uL (0.1-1.4); BASOPHILS % (AUTO) 0.7 % (0-2); EOSINOPHILS % (AUTO) 1.8 % (0-6); HEMATOCRIT 37.1 % (36.0-47.0); LYMPHOCYTES % (AUTO) 30.5 % (13-45); MEAN CORPUSCULAR HEMOGLOBIN 27.7 pg (27.0-33.4); MEAN CORPUSCULAR HGB CONC 32.4 g/dL (32.0-36.0); MEAN CORPUSCULAR VOLUME 85 fl (80-97); MONOCYTES % (AUTO) 8.5 % (3-13); PLATELET COUNT 234 10^3/uL (150-450); RED BLOOD COUNT 4.35 10^6/uL (3.72-5.28); SEGMENTED NEUTROPHILS % (AUTO) 58.5 % (42-78); TOTAL CELLS COUNTED % (AUTO) 100 %; WHITE BLOOD COUNT 8.6 10^3/uL (4.0-10.5)
[2018-12-23 02:12] LABS: CREATINE KINASE MB 0.26 ng/mL (<4.55)
[2018-12-23 02:13] LABS: TROPONIN I < 0.012 ng/mL
[2018-12-23] MEDS ORDERED: NITROGLYCERIN 2% OINTMENT 1 GM PACKET TP ONE (03:25)
[2018-12-23] MEDS ORDERED: NITROGLYCERIN 2% OINTMENT 1 GM PACKET ONE (03:25)
--- NOTE | 2018-12-23 03:39 | ER Document Report ---
ED General - General Chief Complaint: Chest Tightness Stated Complaint: CHEST PRESSURE Time Seen by Provider: 12/23/18 02:20 Primary Care Provider: TAMMIE COSTA MD [Primary Care Provider] - Follow up as needed TRAVEL OUTSIDE OF THE [place] IN LAST 30 DAYS: No - HPI Notes: This is a 68-year-old female who presents complaining of elevated blood pressure and chest discomfort. Patient has a history of hypertension for which she is been taking benazepril and amlodipine for "years." Patient states that she is compliant with her medications but started experiencing some chest discomfort at rest earlier this evening at home. Rescue was called. When EMS arrived they gave the patient 3 sublingual nitro and 324 mg of aspirin. Patient's initial blood pressure was 201/74 heart rate of 69 with a pulse ox of 97% on room air and respirations of 16. The patient responded well to the sublingual nitro with relief of her chest pressure. Patient arrived to the ED here stating that her chest pain had improved. Patient denies headache, visual changes, change in urinary output, abdominal pain, dystaxia. - Related Data Allergies/Adverse Reactions: Penicillins Allergy (Verified 12/24/17 09:25) Hives, Dizziness Past Medical History - General Information source: Patient - Social History Smoking Status: Never Smoker Family History: Reviewed & Not Pertinent Patient has suicidal ideation: No Patient has homicidal ideation: No - Past Medical History Cardiac Medical History: Reports: Hx Atrial Fibrillation, Hx Coronary Artery Disease, Hx Hypercholesterolemia, Hx Hypertension Denies: Hx Congestive Heart Failure, Hx Heart Attack, Hx Peripheral Vascular Disease, Hx Pulmonary Embolism, Hx Heart Murmur Pulmonary Medical History: Reports: Hx Asthma, Hx Bronchitis, Hx COPD, Hx Pneumonia - long time ago, Hx Sleep Apnea Denies: Hx Respiratory Failure, Hx Tuberculosis Neurological Medical History: Denies: Hx Seizures, Hx Parkinson's Disease Endocrine Medical History: Reports: Hx Diabetes Mellitus Type 2 Renal/ Medical History: Reports: Hx Renal Insufficiency. Denies: Hx End Stage Renal Disease, Hx Peritoneal Dialysis Malignancy Medical History: Denies: Hx Lung Cancer GI Medical History: Reports: Hx Gastroesophageal Reflux Disease. Denies: Hx Crohn's Disease, Hx Hiatal Hernia, Hx Pancreatitis Musculoskeletal Medical History: Reports Hx Arthritis, Denies Hx Fibromyalgia, Reports Hx Gout Psychiatric Medical History: Denies: Hx Dementia, Hx Depression Past Surgical History: Reports: Hx Cardiac Catheterization - 08-08-2013, Hx Cardiac Surgery - bypass, Hx Section - x1, Hx Coronary Artery Bypass Graft - 4 vessel CABG in 2000. Denies: Hx Appendectomy, Hx Cholecystectomy, Hx Colostomy, Hx Gastric Bypass Surgery, Hx Herniorrhaphy, Hx Hysterectomy, Hx Mastectomy, Hx Pacemaker, Hx Tonsillectomy, Hx Tubal Ligation - Immunizations Immunizations up to date: Yes Hx Diphtheria, Pertussis, Tetanus Vaccination: Yes Hx Pneumococcal Vaccination: 01/10/17 Review of Systems - Review of Systems Constitutional: No symptoms reported EENT: No symptoms reported Cardiovascular: See HPI Respiratory: No symptoms reported Gastrointestinal: No symptoms reported Genitourinary: No symptoms reported Female Genitourinary: No symptoms reported Musculoskeletal: No symptoms reported Skin: No symptoms reported Hematologic/Lymphatic: No symptoms reported Neurological/Psychological: No symptoms reported Physical Exam - Vital signs Vitals: Resp BP Pulse Ox 12 102/68 99 12/23/18 01:15 12/23/18 01:15 12/23/18 01:15 - Notes Notes: PHYSICAL EXAMINATION: GENERAL: Well-appearing, well-nourished and in no acute distress. HEAD: Atraumatic, normocephalic. EYES: Pupils equal round and reactive to light, extraocular movements intact, sclera anicteric, conjunctiva are normal. ENT: nares patent, oropharynx clear without exudates. Moist mucous membranes. NECK: Normal range of motion, supple without lymphadenopathy LUNGS: Breath sounds clear to auscultation bilaterally and equal. No wheezes rales or rhonchi. HEART: Regular rate and rhythm without murmurs ABDOMEN: Soft, nontender, normoactive bowel sounds. No guarding, no rebound. No masses appreciated. EXTREMITIES: Normal range of motion, no pitting or edema. No cyanosis. NEUROLOGICAL: No focal neurological deficits. Moves all extremities spontaneously and on command. PSYCH: Normal mood, normal affect. SKIN: Warm, Dry, normal turgor, no rashes or lesions noted. Course - Re-evaluation Re-evalutation: 12/23/18 03:46 Patient denies chest discomfort at this time. Patient's blood pressure is now 188 systolic. EKG, chest x-ray results, laboratory findings all reviewed by this MD and discussed with patient and patient's family. Differential diagnosis: Hypertensive urgency, non-ST elevation RI, acute coronary syndrome, chronic renal disease Impression: This is a 68-year-old female with a history of chronic hypertension presenting with chest pressure and elevated blood pressure. Patient symptoms alleviated with sublingual nitroglycerin. Troponin is negative and EKG is unremarkable, chest x-ray shows no acute disease. Creatinine is 0.92. 12/23/18 04:15 Diagnosis: Hypertensive urgency Plan: Nitropaste for elevated blood pressure, admission to patient's PCP for further inpatient treatment of hypertensive urgency. - Vital Signs Vital signs: Temp Pulse Resp BP Pulse Ox 98.4 F 58 L 12 147/62 H 98 12/23/18 01:26 12/23/18 01:26 12/23/18 02:01 12/23/18 02:01 12/23/18 02:01 - Laboratory Result Diagrams: 12/23/18 01:04 12/23/18 01:04 Laboratory results interpreted by me: 12/23/18 12/23/18 01:04 01:04 RDW 15.0 H BUN 23 H Glucose 150 H Albumin 3.2 L 12/23/18 04:16 Laboratory results reviewed by this MD - Diagnostic Test Radiology reviewed: Reports reviewed - EKG Interpretation by Me Additional EKG results interpreted by me: 12/23/18 04:16 EKG done on 12/23/2018 at 0104 hrs. was interpreted by this MD. Findings: Normal sinus rhythm, rate of 64, normal axis, narrow QRS, nonspecific ST segments. Impression normal sinus rhythm with nonspecific ST segments - Consults dr costa Time consulted: 03:37 Reason for consultation: 12/23/18 04:19 Patient's PCP consulted for purpose of admitting patient for inpatient care of hypertensive urgency. Dr. Costa agreed to admit the patient and requested that the patient be placed in IMCU Consulted provider: will see as inpatient Discharge - Discharge Clinical Impression: Hypertensive urgency Condition: Good Disposition: ADMITTED INPATIENT Admitting Provider: [facility] Admitted: [facility] Referrals: TAMMIE COSTA MD [Primary Care Provider] - Follow up as needed
--- NOTE | 2018-12-23 06:29 | EKG REPORT ---
SEVERITY:- NORMAL ECG - SINUS RHYTHM : Confirmed by: Karsten Fong MD 23-Dec-2018 06:28:47
[2018-12-23] MEDS ORDERED: DEXTROSE 50%-WATER SYRINGE 12.5 GM/25 ML DOSE IV PRN (06:30)
[2018-12-23] MEDS ORDERED: GLUCAGON,HUMAN RECOMB 1 MG INJ IM PRN (06:30)
[2018-12-23] MEDS ORDERED: DEXTROSE 50%-WATER SYRINGE 25 GM/50 ML DOSE IV PRN (06:30)
[2018-12-23] MEDS ORDERED: DEXTROSE 40% GEL 15 GM TUBE PO PRN (06:30)
[2018-12-23] MEDS ORDERED: DEXTROSE 40% GEL 15 GM TUBE X 2 PO PRN (06:30)
[2018-12-23] MEDS: BENAZEPRIL HCL 20 MG TABLET PO SCH (09:18)
[2018-12-23] MEDS: AMLODIPINE BESYLATE 10 MG TABLET PO SCH (09:19)
[2018-12-23] MEDS: ENOXAPARIN SODIUM INJ 40 MG/0.4 ML DISP.SYRIN SUBCUT SCH (09:21)
[2018-12-23 09:26] LABS: ABSOLUTE BASOPHILS # (AUTO) 0.1 10^3/uL (0.0-0.2); ABSOLUTE EOSINOPHILS # (AUTO) 0.2 10^3/uL (0.0-0.6); ABSOLUTE LYMPHOCYTES (AUTO) 2.1 10^3/uL (0.5-4.7); ABSOLUTE MONOCYTES (AUTO) 0.6 10^3/uL (0.1-1.4); ABSOLUTE NEUT (AUTO) 4.8 10^3/uL (1.7-8.2); BASOPHILS % (AUTO) 0.9 % (0-2); EOSINOPHILS % (AUTO) 2.4 % (0-6); HEMATOCRIT 38.5 % (36.0-47.0); HEMOGLOBIN 12.4 g/dL (12.0-15.5); LYMPHOCYTES % (AUTO) 27.2 % (13-45); MEAN CORPUSCULAR HEMOGLOBIN 27.7 pg (27.0-33.4); MEAN CORPUSCULAR HGB CONC 32.3 g/dL (32.0-36.0); MEAN CORPUSCULAR VOLUME 86 fl (80-97); MONOCYTES % (AUTO) 7.2 % (3-13); PLATELET COUNT 248 10^3/uL (150-450); RED BLOOD COUNT 4.49 10^6/uL (3.72-5.28); RED CELL DISTRIBUTION WIDTH 15.3 % (11.5-14.0); SEGMENTED NEUTROPHILS % (AUTO) 62.3 % (42-78); TOTAL CELLS COUNTED % (AUTO) 100 %; WHITE BLOOD COUNT 7.8 10^3/uL (4.0-10.5)
[2018-12-23 09:58] LABS: PHOSPHORUS 3.9 mg/dL (2.5-4.5)
[2018-12-23] MEDS ORDERED: METFORMIN HCL PO SCH ×2 (10:00→18:00)
[2018-12-23] MEDS ORDERED: EMPAGLIFLOZIN PO SCH ×2 (10:00→18:00)
[2018-12-23 10:20] LABS: CREATINE KINASE MB 0.25 ng/mL (<4.55)
[2018-12-23 10:27] LABS: TROPONIN I < 0.012 ng/mL
[2018-12-23 16:29] LABS: CREATINE KINASE MB < 0.22 ng/mL (<4.55); TROPONIN I < 0.012 ng/mL
[2018-12-23] MEDS ORDERED: ALBUTEROL SULFATE 0.083% NEB 2.5 MG/3 ML AMPUL NEB PRN (17:56)
[2018-12-23] MEDS ORDERED: (PENDING PHARMACY ID) (Benazepril Hcl [Lotensin] 40 MG) PO SCH (18:00)
[2018-12-23] MEDS ORDERED: (PENDING PHARMACY ID) (Cyanocobalamin (Vitamin B-12) [Vitamin B-12 500 Mcg Tablet] 500 MCG PO SCH (18:00)
[2018-12-23] MEDS ORDERED: [UNRECOGNIZED DRUG - OTHER] PO SCH (18:00)
[2018-12-23] MEDS ORDERED: AMLODIPINE BESYLATE 10 MG TABLET PO SCH (18:00)
--- NOTE | 2018-12-23 18:10 | PDOC H&P ---
History of Present Illness Admission Date/PCP: 12/23/18 04:20 TAMMIE COSTA MD History of Present Illness: JEREMI GERMAN is a 68 year old female,she has a history of coronary artery di sease, type 2 diabetes mellitus, severe persistent asthma, osteoarthritis, she came to the emergency room for evaluation of sensation of chest tightness. She said she thought the chest tightness was from asthma because she also had a wheeze at the time. She used Symbicort inhaler and also the rescue inhaler but there was no much relief, she called EMS, when EMS arrived she was given nitroglycerin sublingual with some improvement in her symptoms she was then transferred to the emergency room for further evaluation and management. When she arrived in the emergency room the blood pressure recorded was over 200 systolic, she was evaluated, it was felt that she needed to be admitted into the hospital for further evaluation and management. Past Medical History Cardiac Medical History: Reports: Atrial Fibrillation, Coronary Artery Disease, Hyperlipidema, Hypertension Pulmonary Medical History: Reports: Asthma, Bronchitis, Chronic Obstructive Pulmonary Disease (COPD), Pneumonia - long time ago, Sleep Apnea Endocrine Medical History: Reports: Diabetes Mellitus Type 2 GI Medical History: Reports: Gastroesophageal Reflux Disease Musculoskeltal Medical History: Reports: Arthritis, Gout Past Surgical History Past Surgical History: Reports: Cardiac Catheterization - 08-08-2013, Section - x1, Coronary Artery Bypass Graft - 4 vessel CABG in 2000 Social History Smoking Status: Never Smoker Electronic Cigarette use?: No Frequency of Alcohol Use: None Hx Recreational Drug Use: No Drugs: None Hx Prescription Drug Abuse: No - Advance Directive Resuscitation Status: Full Code Family History Family History: Reviewed & Not Pertinent Parental Family History Reviewed: Yes Children Family History Reviewed: Yes Sibling(s) Family History Reviewed.: Yes Medication/Allergy Home Medications: Albuterol Sulfate [Ventolin 0.083% Neb 2.5 mg/3 ml Ampul] 1 vial NEB RTQIDP PRN 12/23/18 Amlodipine Besylate [Norvasc 10 mg Tablet] 10 mg PO DAILY 12/23/18 Aspirin [Adult Low Dose Aspirin EC] 81 mg PO DAILY 12/23/18 Benazepril HCl [Lotensin] 40 mg PO DAILY 12/23/18 Budesonide/Formoterol Fumarate [Symbicort Hfa 160-4.5 Mcg Inhaler 6 gm] 2 puff IH Q12 12/23/18 Cholecalciferol (Vitamin D3) [Vitamin D3 1000 Unit Tablet] 1,000 unit PO DAILY 12/23/18 Clindamycin HCl [Cleocin 150 mg Capsule] 150 mg PO Q6 12/23/18 Cyanocobalamin (Vitamin B-12) [Vitamin B-12 500 mcg Tablet] 500 mcg PO DAILY 12/23/18 Empagliflozin/Metformin HCl [Synjardy 12.5-500 mg Tablet] 1 each PO BIDBS 12/23/18 Febuxostat [Uloric 80 mg Tablet] 80 mg PO DAILY 12/23/18 Metoprolol Succinate [Toprol XL 100 mg Tablet] 100 mg PO DAILY 12/23/18 Prednisone [Deltasone 5 mg Tablet] 5 mg PO DAILY 12/23/18 Rosuvastatin Calcium [Crestor 10 mg Tablet] 10 mg PO QHS 12/23/18 Allergies/Adverse Reactions: Penicillins Allergy (Verified 12/24/17 09:25) Hives, Dizziness Review of Systems Constitutional: ABSENT: chills, fever(s), headache(s), weight gain, weight loss Eyes: ABSENT: visual disturbances Ears: ABSENT: hearing changes Cardiovascular: PRESENT: chest pain Respiratory: ABSENT: cough, hemoptysis Gastrointestinal: ABSENT: abdominal pain, constipation, diarrhea, hematemesis, h ematochezia, nausea, vomiting Genitourinary: ABSENT: dysuria, hematuria Musculoskeletal: ABSENT: joint swelling Integumentary: ABSENT: rash, wounds Neurological: ABSENT: abnormal gait, abnormal speech, confusion, dizziness, focal weakness, syncope Psychiatric: ABSENT: anxiety, depression, homidical ideation, suicidal ideation Endocrine: ABSENT: cold intolerance, heat intolerance, menstrual abnormalities, polydipsia, polyuria Hematologic/Lymphatic: ABSENT: easy bleeding, easy bruising, lymphadenopathy Physical Exam Vital Signs: Temp Pulse Resp BP Pulse Ox 98.2 F 61 16 137/60 H 99 12/23/18 16:25 12/23/18 16:25 12/23/18 16:25 12/23/18 16:25 12/23/18 16:25 Intake & Output 12/22/18 12/23/18 12/24/18 06:59 06:59 06:59 Weight 50.5 kg General appearance: PRESENT: no acute distress Head exam: PRESENT: atraumatic Eye exam: PRESENT: PERRLA Ear exam: PRESENT: normal external ear exam Mouth exam: PRESENT: moist, tongue midline Neck exam: PRESENT: full ROM Respiratory exam: PRESENT: clear to auscultation radha Cardiovascular exam: PRESENT: RRR, +S1, +S2 Vascular exam: PRESENT: normal capillary refill GI/Abdominal exam: PRESENT: normal bowel sounds, soft Rectal exam: PRESENT: deferred Neurological exam: PRESENT: alert, awake, oriented to person, oriented to place, oriented to time, oriented to situation, CN II-XII grossly intact Psychiatric exam: PRESENT: appropriate affect, normal mood Skin exam: PRESENT: dry, intact, warm Results Laboratory Results: 12/23/18 09:15 12/23/18 01:04 12/23/18 12/23/18 12/23/18 01:04 01:04 09:15 WBC 8.6 7.8 RBC 4.35 4.49 Hgb 12.0 12.4 Hct 37.1 38.5 MCV 85 86 MCH 27.7 27.7 MCHC 32.4 32.3 RDW 15.0 H 15.3 H Plt Count 234 248 Seg Neutrophils % 58.5 62.3 Sodium 140.4 Potassium 3.6 Chloride 104 Carbon Dioxide 28 Anion Gap 8 BUN 23 H Creatinine 0.92 Est GFR ( Amer) > 60 Glucose 150 H Calcium 8.4 Phosphorus Magnesium Total Bilirubin 0.4 AST 19 Alkaline Phosphatase 92 Total Protein 6.4 Albumin 3.2 L 12/23/18 09:15 WBC RBC Hgb Hct MCV MCH MCHC RDW Plt Count Seg Neutrophils % Sodium Potassium Chloride Carbon Dioxide Anion Gap BUN Creatinine Est GFR ( Amer) Glucose Calcium Phosphorus 3.9 Magnesium 2.0 Total Bilirubin AST Alkaline Phosphatase Total Protein Albumin 12/23/18 12/23/18 12/23/18 01:04 01:04 09:15 Creatine Kinase 32 CK-MB (CK-2) 0.26 Troponin I < 0.012 NT-Pro-B Natriuret Pep 259 12/23/18 12/23/18 12/23/18 09:15 09:15 15:30 Creatine Kinase 32 29 L CK-MB (CK-2) 0.25 Troponin I < 0.012 NT-Pro-B Natriuret Pep 12/23/18 15:30 Creatine Kinase CK-MB (CK-2) < 0.22 Troponin I < 0.012 NT-Pro-B Natriuret Pep Impressions: Chest X-Ray 12/23/18 01:20 IMPRESSION: No evidence of acute cardiopulmonary disease. Assessment & Plan - Diagnosis (1) Chest pain Qualifiers: Chest pain type: unspecified Qualified Code(s): R07.9 - Chest pain, unspecified Is this a current diagnosis for this admission?: Yes Plan: The chest pain is suspicious for ischemic heart disease, 3 sets of cardiac enzymes will be drawn to rule out CO (2) Hypertensive urgency Is this a current diagnosis for this admission?: Yes Plan: Continue treatment (3) T2DM (type 2 diabetes mellitus) Qualifiers: Diabetes mellitus [facility] insulin use: with terminal worker use Diabetes mellitus complication status: without complication Qualified Code(s): E11.9 - Type 2 diabetes mellitus without complications; Z79.4 - [facility]DC (current) use of insulin Is this a current diagnosis for this admission?: Yes (4) Coronary artery disease Qualifiers: Coronary Disease-Associated Artery/Lesion type: unspecified vessel or lesion type [place] vs. transplanted heart: [place] heart Associated angina: without angina Qualified Code(s): I25.10 - Atherosclerotic heart disease of [place] coronary artery without angina pectoris Is this a current diagnosis for this admission?: Yes (5) Severe persistent asthma Qualifiers: Asthma complication type: uncomplicated Qualified Code(s): J45.50 - Severe persistent asthma, uncomplicated Is this a current diagnosis for this admission?: Yes
[2018-12-23] MEDS: CHOLECALCIFEROL (D3) 1,000 UNIT (25 MCG) TABLET PO SCH (18:23)
[2018-12-23] MEDS: ASPIRIN 81 MG TABLET, ENT COATED PO SCH (18:23)
[2018-12-23] MEDS: CYANOCOBALAMIN (VITAMIN B-12) 1,000 MCG TABLET PO SCH (18:40)
[2018-12-23] MEDS: METOPROLOL SUCCINATE 50 MG TAB.SR.24H PO SCH (18:40)
[2018-12-23] MEDS: ATORVASTATIN CALCIUM 20 MG TABLET PO SCH (21:31)
[2018-12-23] MEDS: FEBUXOSTAT 80 MG TABLET PO SCH (21:31)
[2018-12-23 21:34] LABS: CREATINE KINASE MB < 0.22 ng/mL (<4.55); TROPONIN I < 0.012 ng/mL
[2018-12-24] MEDS ORDERED: INFLUENZA QUAD (6MOS+) 2019-20 VAC 0.5 ML SYR IM ONE (08:00)
[2018-12-24] MEDS: METOPROLOL SUCCINATE 50 MG TAB.SR.24H PO SCH (10:34)
[2018-12-24] MEDS: BENAZEPRIL HCL 20 MG TABLET PO SCH (10:34)
[2018-12-24] MEDS: AMLODIPINE BESYLATE 10 MG TABLET PO SCH (10:34)
[2018-12-24] MEDS: CYANOCOBALAMIN (VITAMIN B-12) 1,000 MCG TABLET PO SCH (10:35)
[2018-12-24] MEDS: ENOXAPARIN SODIUM INJ 40 MG/0.4 ML DISP.SYRIN SUBCUT SCH (10:35)
[2018-12-24] MEDS: ASPIRIN 81 MG TABLET, ENT COATED PO SCH (10:35)
[2018-12-24] MEDS: CHOLECALCIFEROL (D3) 1,000 UNIT (25 MCG) TABLET PO SCH (10:35)
[2018-12-24] MEDS: FLUTICASONE/VILANTEROL 200-25 MCG/DOSE IH SCH (10:36)
[2018-12-24] MEDS: FEBUXOSTAT 80 MG TABLET PO SCH (10:37)
[2018-12-24] MEDS: PREDNISONE 5 MG TABLET PO SCH (18:44)
--- NOTE | 2018-12-24 18:57 | PDOC PROGRESS REPORT ---
Subjective Progress Note for:: 12/24/18 Subjective:: Patient was admitted for evaluation of chest pain/chest pressure, she complain of pain involving the knees and the elbow, she has underlining osteoarthritis, history of gout Reason For Visit: HYPERTENSIVE URGENCY,CHEST PAIN Physical Exam Vital Signs: Temp Pulse Resp BP Pulse Ox 98.1 F 58 L 16 108/49 L 98 12/24/18 15:58 12/24/18 15:58 12/24/18 15:58 12/24/18 15:58 12/24/18 15:58 Intake & Output 12/23/18 12/24/18 12/25/18 06:59 06:59 06:59 Intake Total 830 680 Balance 830 680 Weight 50.5 kg 50 kg General appearance: PRESENT: no acute distress Eye exam: PRESENT: PERRLA Respiratory exam: PRESENT: clear to auscultation radha Cardiovascular exam: PRESENT: +S1, +S2 GI/Abdominal exam: PRESENT: soft Musculoskeletal exam: PRESENT: tenderness Neurological exam: PRESENT: alert Results Laboratory Results: 12/23/18 09:15 12/23/18 01:04 12/23/18 12/23/18 12/23/18 01:04 01:04 09:15 Creatine Kinase 32 CK-MB (CK-2) 0.26 Troponin I < 0.012 NT-Pro-B Natriuret Pep 259 12/23/18 12/23/18 12/23/18 09:15 09:15 15:30 Creatine Kinase 32 29 L CK-MB (CK-2) 0.25 Troponin I < 0.012 NT-Pro-B Natriuret Pep 12/23/18 12/23/18 12/23/18 15:30 20:50 20:50 Creatine Kinase 29 L CK-MB (CK-2) < 0.22 < 0.22 Troponin I < 0.012 < 0.012 NT-Pro-B Natriuret Pep Impressions: Chest X-Ray 12/23/18 01:20 IMPRESSION: No evidence of acute cardiopulmonary disease. 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 transplanted heart: [place] heart Associated angina: without angina Qualified Code(s): I25.10 - Atherosclerotic heart disease of [place] coronary artery without angina pectoris Is this a current diagnosis for this admission?: Yes (5) Severe persistent asthma Qualifiers: Asthma complication type: uncomplicated Qualified Code(s): J45.50 - Severe persistent asthma, uncomplicated Is this a current diagnosis for this admission?: Yes (6) Arthropathy of left elbow Is this a current diagnosis for this admission?: Yes Plan: Treat with prednisone 5 mg p.o. daily - Time Time Spent with patient: 15-24 minutes
[2018-12-24] MEDS: ATORVASTATIN CALCIUM 20 MG TABLET PO SCH (21:32)
[2018-12-25] MEDS: ASPIRIN 81 MG TABLET, ENT COATED PO SCH (10:18)
[2018-12-25] MEDS: METOPROLOL SUCCINATE 50 MG TAB.SR.24H PO SCH (10:18)
[2018-12-25] MEDS: ENOXAPARIN SODIUM INJ 40 MG/0.4 ML DISP.SYRIN SUBCUT SCH (10:18)
[2018-12-25] MEDS: BENAZEPRIL HCL 20 MG TABLET PO SCH (10:18)
[2018-12-25] MEDS: PREDNISONE 5 MG TABLET PO SCH (10:19)
[2018-12-25] MEDS: FEBUXOSTAT 80 MG TABLET PO SCH (10:19)
[2018-12-25] MEDS: CHOLECALCIFEROL (D3) 1,000 UNIT (25 MCG) TABLET PO SCH (10:19)
[2018-12-25] MEDS: CYANOCOBALAMIN (VITAMIN B-12) 1,000 MCG TABLET PO SCH (10:19)
[2018-12-25] MEDS: AMLODIPINE BESYLATE 10 MG TABLET PO SCH (10:20)
[2018-12-25] MEDS: FLUTICASONE/VILANTEROL 200-25 MCG/DOSE IH SCH (10:20)
[2018-12-25 11:59] VITALS: BP 118/44
--- NOTE | 2018-12-25 16:03 | PDOC DISCHARGE SUMMARY ---
Impression - Admit/DC Date/PCP Admission Date/Primary Care Provider: 12/23/18 04:20 TAMMIE COSTA MD Discharge Date: 12/25/18 - Discharge Diagnosis (1) Chest pain Is this a current diagnosis for this admission?: Yes (2) Hypertensive urgency Is this a current diagnosis for this admission?: Yes (3) T2DM (type 2 diabetes mellitus) Is this a current diagnosis for this admission?: Yes (4) Coronary artery disease Is this a current diagnosis for this admission?: Yes (5) Severe persistent asthma Is this a current diagnosis for this admission?: Yes (6) Arthropathy of left elbow Is this a current diagnosis for this admission?: Yes - Additional Information Resuscitation Status: Full Code Referrals: TAMMIE COSTA MD [Primary Care Provider] - 01/03/19 9:30 am Home Medications: Albuterol Sulfate [Ventolin 0.083% Neb 2.5 mg/3 mL Ampul] 1 vial NEB RTQIDP PRN 12/23/18 Amlodipine Besylate [Norvasc 10 mg Tablet] 10 mg PO DAILY 12/23/18 Aspirin [Adult Low Dose Aspirin EC] 81 mg PO DAILY 12/23/18 Benazepril HCl [Lotensin] 40 mg PO DAILY 12/23/18 Budesonide/Formoterol Fumarate [Symbicort HFA 160-4.5 mcg Inhaler 6 gm] 2 puff IH Q12 12/23/18 Cholecalciferol (Vitamin D3) [Vitamin D3 1000 Unit Tablet] 1,000 unit PO DAILY 12/23/18 Cyanocobalamin (Vitamin B-12) [Vitamin B-12 500 mcg Tablet] 500 mcg PO DAILY 12/23/18 Empagliflozin/Metformin HCl [Synjardy 12.5-500 mg Tablet] 1 each PO BIDBS 12/23/18 Febuxostat [Uloric 80 mg Tablet] 80 mg PO DAILY 12/23/18 Metoprolol Succinate [Toprol XL 100 mg Tablet] 100 mg PO DAILY 12/23/18 Rosuvastatin Calcium [Crestor 10 mg Tablet] 10 mg PO QHS 12/23/18 History of Present Illiness History of Present Illness: JEREMI GERMAN is a 68 year old female,she has a history of coronary artery disease, type 2 diabetes mellitus, severe persistent asthma, osteoarthritis, she came to the emergency room for evaluation of sensation of chest tightness. She said she thought the chest tightness was from asthma because she also had a wheeze at the time. She used Symbicort inhaler and also the rescue inhaler but there was no much relief, she called EMS, when EMS arrived she was given nitroglycerin sublingual with some improvement in her symptoms she was then transferred to the emergency room for further evaluation and management. When she arrived in the emergency room the blood pressure recorded was over 200 systolic, she was evaluated, it was felt that she needed to be admitted into the hospital for further evaluation and management. Hospital Course Hospital Course: Patient was admitted for the management of chest pain, 3 sets of cardiac enzymes negative for HI. She also had hypertensive urgency, interestingly she was continued on regular antihypertensive medication from home and the blood pressure was well controlled on this regimen, this suggests she is probably not adherent to her medication usage. She also had joint pain that suggest acute gout, she has underlining osteoarthritis, she was given low-dose prednisone 5 mg just for 2 days, there was complete resolution of her symptoms. Physical Exam Vital Signs: Temp Pulse Resp BP Pulse Ox 98.0 F 50 L 15 118/44 L 96 12/25/18 11:58 12/25/18 08:03 12/25/18 11:58 12/25/18 11:58 12/25/18 08:03 Intake & Output 12/24/18 12/25/18 12/26/18 06:59 06:59 06:59 Intake Total 830 1070 350 Balance 830 1070 350 Weight 50 kg 50.5 kg General appearance: PRESENT: no acute distress Eye exam: PRESENT: PERRLA Respiratory exam: PRESENT: clear to auscultation radha Cardiovascular exam: PRESENT: +S1, +S2 Neurological exam: PRESENT: alert, CN II-XII grossly intact Results Laboratory Results: WBC 7.8 10^3/uL (4.0-10.5) 12/23/18 09:15 RBC 4.49 10^6/uL (3.72-5.28) 12/23/18 09:15 Hgb 12.4 g/dL (12.0-15.5) 12/23/18 09:15 Hct 38.5 % (36.0-47.0) 12/23/18 09:15 MCV 86 fl (80-97) 12/23/18 09:15 MCH 27.7 pg (27.0-33.4) 12/23/18 09:15 MCHC 32.3 g/dL (32.0-36.0) 12/23/18 09:15 RDW 15.3 % (11.5-14.0) H 12/23/18 09:15 Plt Count 248 10^3/uL (150-450) 12/23/18 09:15 Lymph % (Auto) 27.2 % (13-45) 12/23/18 09:15 [place] % (Auto) 7.2 % (3-13) 12/23/18 09:15 Eos % (Auto) 2.4 % (0-6) 12/23/18 09:15 Baso % (Auto) 0.9 % (0-2) 12/23/18 09:15 Absolute Neuts (auto) 4.8 10^3/uL (1.7-8.2) 12/23/18 09:15 Absolute Lymphs (auto) 2.1 10^3/uL (0.5-4.7) 12/23/18 09:15 Absolute Monos (auto) 0.6 10^3/uL (0.1-1.4) 12/23/18 09:15 Absolute Eos (auto) 0.2 10^3/uL (0.0-0.6) 12/23/18 09:15 Absolute Basos (auto) 0.1 10^3/uL (0.0-0.2) 12/23/18 09:15 Seg Neutrophils % 62.3 % (42-78) 12/23/18 09:15 Sodium 140.4 mmol/L (137-145) 12/23/18 01:04 Potassium 3.6 mmol/L (3.6-5.0) 12/23/18 01:04 Chloride 104 mmol/L (98-107) 12/23/18 01:04 Carbon Dioxide 28 mmol/L (22-30) 12/23/18 01:04 Anion Gap 8 (5-19) 12/23/18 01:04 BUN 23 mg/dL (7-20) H 12/23/18 01:04 Creatinine 0.92 mg/dL (0.52-1.25) 12/23/18 01:04 Est GFR ( Amer) > 60 (>60) 12/23/18 01:04 Est GFR (MDRD) Non-Af > 60 (>60) 12/23/18 01:04 Glucose 150 mg/dL (75-110) H 12/23/18 01:04 POC Glucose 170 mg/dL (70-110) H 12/25/18 15:07 Hemoglobin A1c % 8.3 % (4.7-6.0) H 12/23/18 18:59 Calcium 8.4 mg/dL (8.4-10.2) 12/23/18 01:04 Phosphorus 3.9 mg/dL (2.5-4.5) 12/23/18 09:15 Magnesium 2.0 mg/dL (1.6-2.3) 12/23/18 09:15 Total Bilirubin 0.4 mg/dL (0.2-1.3) 12/23/18 01:04 Direct Bilirubin 0.1 mg/dL (0.0-0.4) 12/23/18 01:04 Neonat Total Bilirubin Not Reportable 12/23/18 01:04 Neonat Direct Bilirubin Not Reportable 12/23/18 01:04 Neonat Indirect Bili Not Reportable 12/23/18 01:04 AST 19 U/L (14-36) 12/23/18 01:04 ALT 11 U/L (<35) 12/23/18 01:04 Alkaline Phosphatase 92 U/L (38-126) 12/23/18 01:04 Creatine Kinase 29 U/L (30-135) L 12/23/18 20:50 CK-MB (CK-2) < 0.22 ng/mL (<4.55) 12/23/18 20:50 Troponin I < 0.012 ng/mL 12/23/18 20:50 NT-Pro-B Natriuret Pep 259 pg/mL (5-900) 12/23/18 09:15 Total Protein 6.4 g/dL (6.3-8.2) 12/23/18 01:04 Albumin 3.2 g/dL (3.5-5.0) L 12/23/18 01:04 12/23/18 12/23/18 12/23/18 01:04 09:15 09:15 CK-MB (CK-2) 0.26 0.25 Troponin I < 0.012 < 0.012 NT-Pro-B Natriuret Pep 259 12/23/18 12/23/18 15:30 20:50 CK-MB (CK-2) < 0.22 < 0.22 Troponin I < 0.012 < 0.012 NT-Pro-B Natriuret Pep Impressions: Chest X-Ray 12/23/18 01:20 IMPRESSION: No evidence of acute cardiopulmonary disease. Stroke Is this a Stroke Patient?: No Acute Heart Failure - Is this a Heart Failure Patient?: No
== END 2018-12-25 16:42 | disposition home or self-care (01) ==
LOC: ER 00:56 → INTOOBSV 04:20 → EH 04:20 → 3W 05:23
PROVIDERS: ADMIT Internal Medicine; ATTEND Internal Medicine
DX: I16.0 Hypertensive urgency (principal); R07.9 Chest pain, unspecified; E11.9 Type 2 diabetes mellitus without complications; I25.10 Atherosclerotic heart disease of native coronary artery without angina pectoris; J45.50 Severe persistent asthma, uncomplicated; M12.9 Arthropathy, unspecified; M10.9 Gout, unspecified; I48.91 Unspecified atrial fibrillation; E78.5 Hyperlipidemia, unspecified; I10 Essential (primary) hypertension; J44.9 Chronic obstructive pulmonary disease, unspecified; G47.30 Sleep apnea, unspecified; K21.9 Gastro-esophageal reflux disease without esophagitis; Z79.84 Long term (current) use of oral hypoglycemic drugs; Z79.82 Long term (current) use of aspirin; Z91.14 Patient's other noncompliance with medication regimen; Z95.1 Presence of aortocoronary bypass graft; Z79.52 Long term (current) use of systemic steroids; Z88.0 Allergy status to penicillin; Z23 Encounter for immunization
CPT/HCPCS: 93005; 99285; 36415; 82553; 82962 ×3; 82550; 83735; 84100; 85025; 80053; 84484; 83036; 83880; 71045; 90686; 93010; 90653; 90471; G0378 ×3; A9270 ×24; J1650 ×3; J3490; J7512

== ENCOUNTER 2019-04-02 19:36 | Emergency (ER) | payer MEDICARE, MEDICAID ==
[2019-04-02 20:09] LABS: ABSOLUTE BASOPHILS # (AUTO) 0.1 10^3/uL (0.0-0.2); ABSOLUTE EOSINOPHILS # (AUTO) 0.3 10^3/uL (0.0-0.6); ABSOLUTE LYMPHOCYTES (AUTO) 2.9 10^3/uL (0.5-4.7); ABSOLUTE MONOCYTES (AUTO) 0.8 10^3/uL (0.1-1.4); ABSOLUTE NEUT (AUTO) 5.7 10^3/uL (1.7-8.2); BASOPHILS % (AUTO) 0.6 % (0-2); EOSINOPHILS % (AUTO) 2.9 % (0-6); HEMATOCRIT 37.4 % (36.0-47.0); HEMOGLOBIN 12.1 g/dL (12.0-15.5); LYMPHOCYTES % (AUTO) 29.7 % (13-45); MEAN CORPUSCULAR HEMOGLOBIN 27.5 pg (27.0-33.4); MEAN CORPUSCULAR HGB CONC 32.4 g/dL (32.0-36.0); MEAN CORPUSCULAR VOLUME 85 fl (80-97); MONOCYTES % (AUTO) 7.8 % (3-13); PLATELET COUNT 303 10^3/uL (150-450); RED CELL DISTRIBUTION WIDTH 14.9 % (11.5-14.0); TOTAL CELLS COUNTED % (AUTO) 100 %; WHITE BLOOD COUNT 9.7 10^3/uL (4.0-10.5)
[2019-04-02 20:13] LABS: APPEARANCE,URINE CLEAR; BILIRUBIN,URINE NEGATIVE (NEGATIVE); COLOR,URINE STRAW; GLUCOSE, URINE NEGATIVE (NEGATIVE); KETONES,URINE NEGATIVE (NEGATIVE); LEUKOCYTE ESTERASE,URINE NEGATIVE (NEGATIVE); NITRITE,URINE NEGATIVE (NEGATIVE); PROTEIN,URINE 30 mg/dL (NEGATIVE); URINE SPECIFIC GRAVITY 1.005; UROBILINOGEN,URINE NEGATIVE mg/dL (<2.0)
[2019-04-02 20:23] LABS: ALKALINE PHOSPHATASE 128 U/L (38-126); ANION GAP 9 (5-19); ASPARTATE AMINO TRANSFERASE 22 U/L (14-36); BILIRUBIN,TOTAL 0.6 mg/dL (0.2-1.3); BLOOD UREA NITROGEN 17 mg/dL (7-20); CALCIUM 9.6 mg/dL (8.4-10.2); CARBON DIOXIDE 29 mmol/L (22-30); CHLORIDE 100 mmol/L (98-107); GLUCOSE 130 mg/dL (75-110); POTASSIUM 3.7 mmol/L (3.6-5.0); TOTAL PROTEIN 8.3 g/dL (6.3-8.2)
[2019-04-02] MEDS ORDERED: LIDOCAINE 5% (700 MG) TRANSDERMAL ADH..PATCH TP ONE (20:31)
--- NOTE | 2019-04-02 20:35 | ER Document Report ---
ED General - General Chief Complaint: Flank Pain Stated Complaint: LOWER BACK PAIN Time Seen by Provider: 04/02/19 20:11 Primary Care Provider: TAMMIE COSTA MD [Primary Care Provider] - Follow up in 3-5 days Notes: Patient is a 68-year-old female that comes to the emergency department for chief complaint of pain in her left lower back. She states she started hurting prior to arrival, shortly after this she felt vaguely lightheaded, she states she checked her blood pressure and it was 190 systolic, she states she waited 15 minutes and checked it again and it was 170s systolic so she became concerned and called EMS. EMS gave her 100 mcg of fentanyl, after this she states her pain completely resolved. She states she never had a headache, she denies any focal numbness or weakness, she denies chest pain. She denies abdominal pain. She denies injury. She denies any urinary symptoms. She is denying any current symptoms. Past medical history of hypertension, hyperlipidemia, CABG, type 2 diabetes. Patient does state that she had taken her metoprolol this morning but forgot to take her benazepril, she did take her benazepril this evening when she noticed her blood pressure was high. TRAVEL OUTSIDE OF THE [place] IN LAST 30 DAYS: No - Related Data Allergies/Adverse Reactions: Penicillins Allergy (Verified 04/02/19 19:56) Hives, Dizziness Past Medical History - General Information source: Patient - Social History Smoking Status: Never Smoker Frequency of alcohol use: None Drug Abuse: None Lives with: Family Family History: Reviewed & Not Pertinent Patient has suicidal ideation: No Patient has homicidal ideation: No - Past Medical History Cardiac Medical History: Reports: Hx Atrial Fibrillation, Hx Coronary Artery Disease, Hx Hypercholesterolemia, Hx Hypertension Denies: Hx Congestive Heart Failure, Hx Heart Attack, Hx Peripheral Vascular Disease, Hx Pulmonary Embolism, Hx Heart Murmur Pulmonary Medical History: Reports: Hx Asthma, Hx Bronchitis, Hx COPD, Hx Pneumonia - long time ago, Hx Sleep Apnea Denies: Hx Respiratory Failure, Hx Tuberculosis Neurological Medical History: Denies: Hx Seizures, Hx Parkinson's Disease Endocrine Medical History: Reports: Hx Diabetes Mellitus Type 2 Renal/ Medical History: Reports: Hx Renal Insufficiency. Denies: Hx End Stage Renal Disease, Hx Peritoneal Dialysis Malignancy Medical History: Denies: Hx Lung Cancer GI Medical History: Reports: Hx Gastroesophageal Reflux Disease. Denies: Hx Crohn's Disease, Hx Hiatal Hernia, Hx Pancreatitis Musculoskeletal Medical History: Reports Hx Arthritis, Denies Hx Fibromyalgia, Reports Hx Gout Psychiatric Medical History: Denies: Hx Dementia, Hx Depression Past Surgical History: Reports: Hx Cardiac Catheterization - 08-08-2013, Hx Cardiac Surgery - bypass, Hx Section - x1, Hx Coronary Artery Bypass Graft - 4 vessel CABG in 2000. Denies: Hx Appendectomy, Hx Cholecystectomy, Hx Colostomy, Hx Gastric Bypass Surgery, Hx Herniorrhaphy, Hx Hysterectomy, Hx Mastectomy, Hx Pacemaker, Hx Tonsillectomy, Hx Tubal Ligation - Immunizations Immunizations up to date: Yes Hx Diphtheria, Pertussis, Tetanus Vaccination: Yes Hx Pneumococcal Vaccination: 01/10/17 Review of Systems - Review of Systems Constitutional: No symptoms reported EENT: No symptoms reported Cardiovascular: No symptoms reported Respiratory: No symptoms reported Gastrointestinal: No symptoms reported Genitourinary: No symptoms reported Female Genitourinary: No symptoms reported Musculoskeletal: See HPI Skin: No symptoms reported Hematologic/Lymphatic: No symptoms reported Neurological/Psychological: See HPI Physical Exam - Vital signs Vitals: Temp Pulse Resp BP Pulse Ox 98.9 F 70 16 203/80 H 95 04/02/19 19:45 04/02/19 19:45 04/02/19 19:45 04/02/19 19:45 04/02/19 19:45 - Notes Notes: GENERAL: Alert, interacts well. No acute distress. HEAD: Normocephalic, atraumatic. EYES: Pupils equal, round, and reactive to light. Extraocular movements intact. ENT: Oral mucosa moist, tongue midline. Oropharynx unremarkable. Airway patent. NECK: Full range of motion. Supple. Trachea midline. LUNGS: Clear to auscultation bilaterally, no wheezes, rales, or rhonchi. No respiratory distress. HEART: Regular rate and rhythm. No murmur ABDOMEN: Soft, non-tender. Non-distended. Bowel sounds present in all 4 quadrants. GENITOURINARY: Deferred EXTREMITIES: Moves all 4 extremities spontaneously. No edema, normal radial and dorsalis pedis pulses bilaterally, including on the left side where her back pain is located.. No cyanosis. BACK: There is tenderness over the left paralumbar musculature which is very specific. No signs of trauma. No cervical, thoracic, lumbar midline tenderness. No saddle anesthesia, normal distal neurovascular exam. Moves all extremities in full range of motion. NEUROLOGICAL: Alert and oriented x3. Normal speech. Cranial nerves II through XII grossly intact. PSYCH: Normal affect, normal mood. SKIN: Warm, dry, normal turgor. No rashes or lesions noted. Course - Re-evaluation Re-evalutation: On my evaluation patient has no complaints except for some pain with movement of her back. She has very palpable tenderness over the left lower paralumbar musculature, no signs of trauma, no focal deficits. No abdominal pain. She was very hypertensive initially but this resolved on recheck. Patient had been given pain medication. She denies dizziness, she has no symptoms on my reevaluation after we applied a Lidoderm patch to the specific area of tenderness over the muscle. She does not even have pain with motion now. Symptoms have completely resolved and she is asking if she can go home and have a prescription of the Lidoderm patches. CBC unremarkable, chemistry unremarkable including renal functioning, EKG unremarkable without significant change from prior. Urinalysis unremarkable. B ased on her symptoms and evaluation I have very low suspicion of aortic dissection, her symptoms completely resolved with a Lidoderm patch with palpable area of muscular tenderness. I did discuss expectations, follow-up, and return precautions with patient. Patient states appreciation and agreement. She is going home with her family. - Vital Signs Vital signs: Temp Pulse Resp BP Pulse Ox 98.1 F 62 17 162/66 H 97 04/02/19 22:23 04/02/19 22:23 04/02/19 22:23 04/02/19 22:23 04/02/19 22:23 - Laboratory Result Diagrams: 04/02/19 19:49 04/02/19 19:49 Laboratory results interpreted by me: 04/02/19 04/02/19 04/02/19 19:49 19:49 19:49 RDW 14.9 H Est GFR ( Amer) 57 L Est GFR (MDRD) Non-Af 47 L Glucose 130 H Alkaline Phosphatase 128 H Total Protein 8.3 H Lipase 304.3 H Urine Protein 30 H Urine Blood SMALL H - EKG Interpretation by Me Additional EKG results interpreted by me: EKG shows sinus rhythm at a rate of 63, no T wave inversions or ST segment guerrero es in consecutive leads, QTC of 480. Discharge - Discharge Clinical Impression: Elevated blood pressure reading Lower back pain Qualifiers: Chronicity: acute Back pain laterality: left Sciatica presence: without sciatica Qualified Code(s): M54.5 - Low back pain Condition: Stable Disposition: HOME, SELF-CARE Additional Instructions: Your examination is most consistent with strain and spasm of the muscle in your left lower back. Use the lidocaine patches as prescribed. Take Tylenol for pain additionally if needed. You can apply heat over the area. Take your blood pressure medications, follow-up with your primary care provider for additional management and adjustment. Come back if you are worse including severe worsening pain, fever, vomiting, severe headache, numbness, or any other concerning symptoms. Prescriptions: Lidocaine [Lidoderm 5% (700 mg) Transdermal Patch] 1 patch TP DAILY #30 adh..patch Referrals: TAMMIE COSTA MD [Primary Care Provider] - Follow up in 3-5 days
[2019-04-02 22:24] VITALS: BP 162/66
--- NOTE | 2019-04-03 07:57 | EKG REPORT ---
SEVERITY:- NORMAL ECG - SINUS RHYTHM : Confirmed by: Karsten Fong MD 03-Apr-2019 07:57:02
== END 2019-04-02 22:31 | disposition home or self-care (01) ==
LOC: ER 19:36
DX: M54.5 Low back pain (principal); I10 Essential (primary) hypertension; R42 Dizziness and giddiness; J44.9 Chronic obstructive pulmonary disease, unspecified; I25.10 Atherosclerotic heart disease of native coronary artery without angina pectoris; E11.9 Type 2 diabetes mellitus without complications; Z79.899 Other long term (current) drug therapy; Z95.1 Presence of aortocoronary bypass graft; Z88.0 Allergy status to penicillin
CPT/HCPCS: 93005; 99284; 36415; 83690; 85025; 80053; 81001; 93010; A9270

== ENCOUNTER 2019-07-25 22:11 | Emergency (ER) | payer MEDICARE, MEDICAID ==
--- NOTE | 2019-07-26 00:51 | ER Document Report ---
Entered by VALERI WARD SCRIBE 07/26/19 0028 Acting as scribe for:GASTON MCHUGH IV, MD ED General - General Chief Complaint: Rash Stated Complaint: BODY RASH, HIGH BLOOD PRESSURE, LEFT ARM NUMBNESS Time Seen by Provider: 07/25/19 23:58 Primary Care Provider: TAMMIE COSTA MD [Primary Care Provider] - Follow up as needed Mode of Arrival: Ambulatory Information source: Patient Notes: This 69 year old female patient with a history of hypertension presents to the ED today with complaints of a rash to her upper and lower extremities, abdomen, and back that started x4 days ago. Patient states that she has tried Triamcinolone cream and Benadryl without relief. She admits that she is exposed to her daughter's dog, but notes that the dog receives flea and tick medication. She also notes hypertension, stating that she only takes Benazepril 40 mg and Amlodipine 10 mg prn when her blood pressure trends high. She states that her blood pressure was 187/88 around 2034 this evening, so she immediately took Benazepril. She admits that her Benazepril was recently refilled yesterday. She also reports some numbness/tingling to her LUE for the past x2 days, stating that that has never happened before. TRAVEL OUTSIDE OF THE [place] IN LAST 30 DAYS: No - Related Data Allergies/Adverse Reactions: Penicillins Allergy (Verified 04/02/19 19:56) Hives, Dizziness Home Medications: Pt has a list Past Medical History - General Information source: Patient, [facility] Records - Social History Smoking Status: Never Smoker Cigarette use (# per day): No Chew tobacco use (# tins/day): No Smoking Education Provided: No Frequency of alcohol use: None Drug Abuse: None Lives with: Family Family History: Reviewed & Not Pertinent Patient has suicidal ideation: No Patient has homicidal ideation: No - Past Medical History Cardiac Medical History: Reports: Hx Atrial Fibrillation, Hx Coronary Artery Disease, Hx Hypercholesterolemia, Hx Hypertension Pulmonary Medical History: Reports: Hx Asthma, Hx Bronchitis, Hx COPD, Hx Pneumonia - long time ago, Hx Sleep Apnea Endocrine Medical History: Reports: Hx Diabetes Mellitus Type 2 Renal/ Medical History: Reports: Hx Renal Insufficiency GI Medical History: Reports: Hx Gastroesophageal Reflux Disease Musculoskeletal Medical History: Reports Hx Arthritis, Reports Hx Gout Past Surgical History: Reports: Hx Cardiac Catheterization - 08-08-2013, Hx Section - x1, Hx Coronary Artery Bypass Graft - 4 vessel CABG in 2000 - Immunizations Immunizations up to date: Yes Hx Diphtheria, Pertussis, Tetanus Vaccination: Yes Hx Pneumococcal Vaccination: 01/10/17 Review of Systems - Review of Systems Constitutional: See HPI, Other - Hypertension EENT: No symptoms reported Cardiovascular: See HPI. 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 Gastrointestinal: No symptoms reported Genitourinary: No symptoms reported Female Genitourinary: No symptoms reported Musculoskeletal: No symptoms reported Skin: See HPI, Rash Hematologic/Lymphatic: No symptoms reported Neurological/Psychological: See HPI, Numbness - LUE, Tingling - LUE -: Yes All other systems reviewed and negative Physical Exam - Vital signs Vitals: Temp Pulse Resp BP Pulse Ox 98.2 F 66 16 200/63 H 100 07/25/19 22:24 07/25/19 22:24 07/25/19 22:24 07/25/19 22:24 07/25/19 22:24 Interpretation: Hypertensive - General General appearance: Alert In distress: None - HEENT Head: Normocephalic, Atraumatic Eyes: Normal Pupils: PERRL - Respiratory Respiratory status: No respiratory distress Chest status: Nontender Breath sounds: Normal Chest palpation: Normal - Cardiovascular Rhythm: Regular Heart sounds: Normal auscultation Murmur: No Friction rub: No Gallop: None auscultated - Abdominal Inspection: Normal Distension: No distension Bowel sounds: Normal Tenderness: Nontender - Abdomen soft Organomegaly: No organomegaly - Back Back: Nontender, Other - Multiple excoriated lesions - Extremities General upper extremity: Other - Multiple excoriated lesions General lower extremity: Other - Multiple excoriated lesions - Neurological Neuro grossly intact: Yes Orientation: AAOx4 - Psychological Associated symptoms: Normal affect, Normal mood - Skin Skin irregularity: Lesion - Multiple punctate excoriated lesions noted to upper and lower extremities bilaterally, base of back, and around waist line Course - Vital Signs Vital signs: Temp Pulse Resp BP Pulse Ox 98.8 F 58 L 16 111/44 L 98 07/26/19 00:52 07/26/19 00:52 07/26/19 02:16 07/26/19 02:16 07/26/19 02:16 - Laboratory Result Diagrams: 07/26/19 01:36 07/26/19 01:58 Laboratory results interpreted by me: 07/26/19 07/26/19 01:36 01:58 RDW 16.8 H Eos % (Auto) 6.9 H Carbon Dioxide 31 H BUN 28 H Creatinine 1.30 H Est GFR ( Amer) 49 L Est GFR (MDRD) Non-Af 40 L Glucose 165 H Alkaline Phosphatase 147 H - EKG Interpretation by Me Additional EKG results interpreted by me: 07/26/19 03:12 EKG obtained on 07/26/2019 at 0311 hrs. was interpreted by this MD. Findings: Sinus bradycardia, rate 59, normal axis, P waves proceed QRS complexes, QRS complexes appear narrow, there are no obvious patterns of ST segment elevation or depression present to suggest acute myocardial ischemia or infarction. Impression: Sinus bradycardia with nonspecific ST segments. Discharge - Discharge Clinical Impression: Elevated blood pressure reading, Rash and nonspecific skin eruption Condition: Good Disposition: HOME, SELF-CARE Additional Instructions: Return to the Emergency Department without delay if any worse. HOME CARE INSTRUCTIONS & INFORMATION: Thank you for choosing us for your medical needs. We hope you're satisfied with the care you received. After you leave, you must properly care for your problem and, at the same time, observe its progress. Any condition can change. Some illnesses can change rapidly over hours or days. If your condition worsens, return to the Emergency Department or see your physician promptly. ABOUT YOUR X-RAYS AND EKG'S: If you had an EKG or X-rays taken, they have been read by the Emergency Physician. The X-rays and EKG's will also be read by a Radiologist or Entry Level Administrative Assistant within 24 hours. If discrepancies are noted, you will be notified by telephone. Please be certain the ED has a correct telephone number & address where you can be reached. Also, realize that some fractures or abnormalities do not show up on initial X-rays. If your symptoms continue, see your physician. ABOUT YOUR LABORATORY TEST: If you had laboratory tests, the results have been reviewed by the Emergency Physician. Some test results (for example cultures) may not be available for several days. You will be contacted if any test result shows you need additional treatment. Please be certain the ED has a correct telephone number and address where you can be reached. ABOUT YOUR MEDICATIONS: You will receive instructions on how to take your medicine on the prescription label you receive. Additional information may be provided by the Pharmacy. If you have questions afterwards, call the ED for clarification or further instructions. Some prescribed medications may cause drowsiness. Do not perform tasks such as driving a car or operating machinery without consulting your Pharmacist. If you feel you need a refill of pain medication, your condition will need re-evaluation. Please do not call for a refill of any medication. ABOUT YOUR SIGNATURE: Signature of this document acknowledges to followin. Understanding that you received emergency treatment and that you may be released before al medical problems are known or treated. Please be certain the ED has a correct phone number & address where you can be reached. 2. Acknowledgement that you will arrange for follow-up care as recommended. 3. Authorization for the Emergency Physician to provide information to your follow-up Physician in order to maximize your care. AT ANY TIME, IF YOUR SYMPTOMS CHANGE SIGNIFICANTLY OR WORSEN OR YOU DEVELOP NEW SYMPTOMS, RETURN TO THE EMERGENCY DEPARTMENT IMMEDIATELY FOR RE-EVALUATION. OUR GOAL IS TO PROVIDE EXCELLENT MEDICAL CARE! WE HOPE THAT WE HAVE MET YOUR EXPECTATIONS DURING YOUR EMERGENCY DEPARTMENT V ISIT AND THAT YOU FEEL YOU HAVE RECEIVED EXCELLENT CARE! Prescriptions: Nystatin/Triamcin [Mycolog-II Cream] 1 applic TP BID 10 Days #30 g Referrals: TAMMIE COSTA MD [Primary Care Provider] - Follow up as needed I personally performed the services described in the documentation, reviewed and edited the documentation which was dictated to the scribe in my presence, and it accurately records my words and actions.
[2019-07-26] MEDS ORDERED: HYDRALAZINE HCL INJ/PF 20 MG/1 ML SDV IV ONE (00:57)
--- NOTE | 2019-07-26 01:24 | RADIOLOGY REPORT (SQ) ---
EXAM DESCRIPTION: CT HEAD WITHOUT IV CONTRAST COMPLETED DATE/TME: 07/26/2019 00:30 CLINICAL HISTORY: 69 years, Female, left arm numbness COMPARISON: 12/24/2017 CT TECHNIQUE: 277 Images stored on PACS. All CT scanners at this facility use dose modulation, iterative reconstruction, and/or weight based dosing when appropriate to reduce radiation dose to as low as reasonably achievable (ALARA). [facility]: Dose Right [facility]: CareDose [facility]: Dose Right [facility]: Teradose 4D [facility]: [employer] LIMITATIONS: None. FINDINGS: The globes are intact. The paranasal sinuses and mastoid air cells are well aerated. No displaced or depressed skull fracture. No intra or extra-axial hemorrhage. CT is limited for evaluation of acute infarct. No CT evidence for large or territorial acute infarct. No mass or midline shift. Age-appropriate atrophy with minor small vessel ischemic change. 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 Mild atrophy with small vessel ischemic change. Remote lacunar infarct right basal ganglia TECHNICAL DOCUMENTATION: Quality ID # 436: Final reports with documentation of one or more dose reduction techniques (e.g., Automated exposure control, adjustment of the mA and/or kV according to patient size, use of iterative reconstruction technique) copyright 2011 [employer]- All Rights Reserved
[2019-07-26 01:55] LABS: ABSOLUTE BASOPHILS # (AUTO) 0.1 10^3/uL (0.0-0.2); ABSOLUTE EOSINOPHILS # (AUTO) 0.5 10^3/uL (0.0-0.6); ABSOLUTE MONOCYTES (AUTO) 0.6 10^3/uL (0.1-1.4); ABSOLUTE NEUT (AUTO) 4.3 10^3/uL (1.7-8.2); BASOPHILS % (AUTO) 0.7 % (0-2); EOSINOPHILS % (AUTO) 6.9 % (0-6); LYMPHOCYTES % (AUTO) 27.2 % (13-45); MEAN CORPUSCULAR HEMOGLOBIN 28.3 pg (27.0-33.4); MEAN CORPUSCULAR HGB CONC 33.4 g/dL (32.0-36.0); MEAN CORPUSCULAR VOLUME 85 fl (80-97); MONOCYTES % (AUTO) 8.1 % (3-13); PLATELET COUNT 253 10^3/uL (150-450); RED BLOOD COUNT 4.95 10^6/uL (3.72-5.28); RED CELL DISTRIBUTION WIDTH 16.8 % (11.5-14.0); SEGMENTED NEUTROPHILS % (AUTO) 57.1 % (42-78); TOTAL CELLS COUNTED % (AUTO) 100 %; WHITE BLOOD COUNT 7.5 10^3/uL (4.0-10.5)
[2019-07-26 02:06] LABS: ALBUMIN 4.6 g/dL (3.5-5.0); ALKALINE PHOSPHATASE 147 U/L (38-126); ANION GAP 7 (5-19); ASPARTATE AMINO TRANSFERASE 32 U/L (14-36); BILIRUBIN,DIRECT 0.1 mg/dL (0.0-0.4); BILIRUBIN,TOTAL 0.7 mg/dL (0.2-1.3); BLOOD UREA NITROGEN 28 mg/dL (7-20); CARBON DIOXIDE 31 mmol/L (22-30); CHLORIDE 100 mmol/L (98-107); GLUCOSE 165 mg/dL (75-110); POTASSIUM 4.4 mmol/L (3.6-5.0); TOTAL PROTEIN 8.2 g/dL (6.3-8.2)
[2019-07-26 04:17] VITALS: BP 120/52
--- NOTE | 2019-07-27 10:52 | EKG REPORT ---
SEVERITY:- BORDERLINE ECG - SINUS RHYTHM BORDERLINE PROLONGED QT INTERVAL : Confirmed by: Alondra Guan 27-Jul-2019 10:52:02
== END 2019-07-26 04:17 | disposition home or self-care (01) ==
LOC: ER 22:11
DX: R21 Rash and other nonspecific skin eruption (principal); I10 Essential (primary) hypertension; R20.0 Anesthesia of skin; I48.91 Unspecified atrial fibrillation; I25.10 Atherosclerotic heart disease of native coronary artery without angina pectoris; E78.00 Pure hypercholesterolemia, unspecified; E11.9 Type 2 diabetes mellitus without complications; Z88.0 Allergy status to penicillin; Z95.1 Presence of aortocoronary bypass graft
CPT/HCPCS: 93005; 99283; 96374; 36415; 85025; 80053; 84484; 70450; 93010; J0360

== ENCOUNTER → 2019-10-07 | Outpatient (CLI) | payer MEDICARE, MEDICAID ==
--- NOTE | 2019-10-07 11:43 | WOMENS IMAGING REPORT ---
EXAM DESCRIPTION: 3D SCREENING MAMMO BILAT IMAGES COMPLETED DATE/TIME: 10/07/2019 11:27 am REASON FOR STUDY: Z12.31 ENCOUNTER FOR SCREENING MAMMOGRAM FOR MALIGNANT NEOPLASM OF BREAST Z12.31 ENCNTR SCREEN MAMMOGRAM FOR MALIGNANT NEOPLASM OF SAPPHIRE COMPARISON: 2016, 2018 EXAM PARAMETERS: Views: Standard craniocaudal and mediolateral oblique views of each breast recorded using digital acquisition and breast tomosynthesis. Read with the assistance of CAD. .[facility] - R2 Medical Reviewer Version 9.2 LIMITATIONS: None. FINDINGS: No suspicious masses, suspicious calcifications or architectural distortion. No areas of c oncern. IMPRESSION: NEGATIVE MAMMOGRAM. BIRADS 1. BREAST DENSITY: b. There are scattered areas of fibroglandular density. BIRAD: ASSESSMENT: 1 NEGATIVE RECOMMENDATION: ROUTINE SCREENING COMMENT: The patient has been notified of the results by letter per MQSA requirements. Additional no tification policies are in place for contacting patient with suspicious or incomplete findings. Quality ID #225: The [employer] recommends an annual screening mammogram for women aged 40 years or over. This facility utilizes a reminder system to ensure that all patients receive reminder letters, and/or direct phone calls for appointments. This includes reminders for routine scr eening mammograms, diagnostic mammograms, or other Breast Imaging Interventions when appropriate. Th is patient will be placed in the appropriate reminder system. TECHNICAL DOCUMENTATION: FINDING NUMBER: (1) ASSESSMENT: (1) JOB ID: [id number] 2010 [employer]- All Rights Reserved Reading location - IP/workstation name: [email or web address]
== END ==
LOC: WI 10:09
PROVIDERS: ATTEND Internal Medicine
DX: Z12.31 Encounter for screening mammogram for malignant neoplasm of breast (principal)
CPT/HCPCS: 77063; 77067

== ENCOUNTER 2020-02-11 23:58 | Emergency (ER) | payer MEDICARE, MEDICAID ==
[2020-02-12 01:44] LABS: ABSOLUTE BASOPHILS # (AUTO) 0.1 10^3/uL (0.0-0.2); ABSOLUTE EOSINOPHILS # (AUTO) 0.3 10^3/uL (0.0-0.6); ABSOLUTE LYMPHOCYTES (AUTO) 1.7 10^3/uL (0.5-4.7); ABSOLUTE MONOCYTES (AUTO) 0.4 10^3/uL (0.1-1.4); ABSOLUTE NEUT (AUTO) 4.4 10^3/uL (1.7-8.2); BASOPHILS % (AUTO) 0.8 % (0-2); EOSINOPHILS % (AUTO) 3.9 % (0-6); HEMATOCRIT 39.8 % (36.0-47.0); HEMOGLOBIN 12.9 g/dL (12.0-15.5); LYMPHOCYTES % (AUTO) 25.3 % (13-45); MEAN CORPUSCULAR HEMOGLOBIN 28.1 pg (27.0-33.4); MEAN CORPUSCULAR HGB CONC 32.5 g/dL (32.0-36.0); MEAN CORPUSCULAR VOLUME 87 fl (80-97); MONOCYTES % (AUTO) 6.4 % (3-13); PLATELET COUNT 226 10^3/uL (150-450); RED CELL DISTRIBUTION WIDTH 14.6 % (11.5-14.0); SEGMENTED NEUTROPHILS % (AUTO) 63.6 % (42-78); TOTAL CELLS COUNTED % (AUTO) 100 %; WHITE BLOOD COUNT 6.9 10^3/uL (4.0-10.5)
--- NOTE | 2020-02-12 01:49 | ER Document Report ---
ED General - General Chief Complaint: Palpitations Stated Complaint: CHEST PAIN, FAST HEART BEAT Time Seen by Provider: 02/12/20 01:48 Primary Care Provider: TAMMIE COSTA MD [Primary Care Provider] - Follow up as needed TRAVEL OUTSIDE OF THE [place] IN LAST 30 DAYS: No - HPI Notes: 69-year-old female presents following episode of rapid heartbeat at home. Patient states that she took her usual night meds around 10[birth year]17/1929, she went to lie down. She states that she had a very hard sneeze, she has never had a sneeze that hard before. Immediately afterwards she developed a sensation that her heart was going very fast and it was pounding, felt a tightness. States that she took 4 baby aspirin and then took 1 sublingual nitro every 5 minutes for 3 doses. This did not improve her symptoms. Patient states that she is not having any chest pain, she states this multiple times. Patient does admits that she has not taken her metoprolol for the past 2 days. She states that she self discontinued this medication because she was prescribed a new type of aspirin and she thought that would be enough. She also states that she feels like she has a cold because 2 days ago she slept over at a friend's house and the friend did not turn on the heat. She states that she does not have any fever or rhinorrhea, just a slight cough. - Related Data Allergies/Adverse Reactions: Penicillins Allergy (Verified 04/02/19 19:56) Hives, Dizziness Home Medications: Prednisone 20 mg. Aspirin 81 mg. Amlodipine 10 mg. D3 25 mcg. Clindamycin 300 mg. Metoprolol 100 mg Past Medical History - General Information source: Patient - Social History Smoking Status: Never Smoker Family History: Reviewed & Not Pertinent - Past Medical History Cardiac Medical History: Reports: Hx Atrial Fibrillation, Hx Coronary Artery Disease, Hx Hypercholesterolemia, Hx Hypertension Denies: Hx Congestive Heart Failure, Hx Heart Attack, Hx Peripheral Vascular Disease, Hx Pulmonary Embolism, Hx Heart Murmur Pulmonary Medical History: Reports: Hx Asthma, Hx Bronchitis, Hx COPD, Hx Pneumonia - long time ago, Hx Sleep Apnea Denies: Hx Respiratory Failure, Hx Tuberculosis Neurological Medical History: Denies: Hx Seizures, Hx Parkinson's Disease Endocrine Medical History: Reports: Hx Diabetes Mellitus Type 2 Renal/ Medical History: Reports: Hx Renal Insufficiency. Denies: Hx End Stage Renal Disease, Hx Peritoneal Dialysis Malignancy Medical History: Denies: Hx Lung Cancer GI Medical History: Reports: Hx Gastroesophageal Reflux Disease. Denies: Hx Crohn's Disease, Hx Hiatal Hernia, Hx Pancreatitis Musculoskeletal Medical History: Reports Hx Arthritis, Denies Hx Fibromyalgia, Reports Hx Gout Psychiatric Medical History: Denies: Hx Dementia, Hx Depression Past Surgical History: Reports: Hx Cardiac Catheterization - 08-08-2013, Hx Cardiac Surgery - bypass, Hx Section - x1, Hx Coronary Artery Bypass Graft - 4 vessel CABG in 2000. Denies: Hx Appendectomy, Hx Cholecystectomy, Hx Colostomy, Hx Gastric Bypass Surgery, Hx Herniorrhaphy, Hx Hysterectomy, Hx Mastectomy, Hx Pacemaker, Hx Tonsillectomy, Hx Tubal Ligation - Immunizations Immunizations up to date: Yes Hx Diphtheria, Pertussis, Tetanus Vaccination: Yes Hx Pneumococcal Vaccination: 01/10/17 Review of Systems - Review of Systems Constitutional: denies: Fever EENT: No symptoms reported Cardiovascular: Heart racing. denies: Chest pain Respiratory: denies: Short of breath Gastrointestinal: No symptoms reported Genitourinary: No symptoms reported Female Genitourinary: No symptoms reported Musculoskeletal: No symptoms reported Skin: No symptoms reported Hematologic/Lymphatic: No symptoms reported Neurological/Psychological: No symptoms reported Physical Exam - Vital signs Vitals: Temp Pulse Resp BP Pulse Ox 98.5 F 104 H 20 170/84 H 98 02/12/20 00:19 02/12/20 00:19 02/12/20 00:19 02/12/20 00:19 02/12/20 00:19 - General General appearance: Appears well, Alert In distress: None - HEENT Head: Normocephalic, Atraumatic Extraocular movements intact: Yes Pupils: PERRL - Respiratory Breath sounds: Normal - Cardiovascular Rhythm: Regular Heart sounds: Normal auscultation - Abdominal Tenderness: Nontender - Extremities General lower extremity: No: Edema - Neurological Neuro grossly intact: Yes Cognition: Normal Orientation: AAOx4 - Psychological Associated symptoms: Normal affect - Skin Skin Temperature: Warm Course - Re-evaluation Re-evalutation: 69-year-old female presents with tachycardia after a sneeze at home. Initial heart rate on arrival was in the 130s, but at time of evaluation heart rate was in the 70s to 80s. Possibly could have had a little adrenergic surge after the sneeze in conjunction with not taking any metoprolol for the past 2 days. Patient adamant she is not having any chest pain. Laboratory evaluation was ordered per triage process. Discussed with patient she will need to restart her metoprolol. No medicines are indicated at this time given that her heart rate is now within normal limits. 02/12/20 03:48 No leukocytosis or left shift. No acute anemia. Electrolytes within normal limits. Creatinine elevated, appears to have CKD based on previous values. Troponin is below reference value. No consolidation or acute process on chest x-ray. Repeat EKG remains nonischemic. Patient has had no further episodes of tachycardia while in the ED, heart rate currently 62 per monitor 02/12/20 03:50 Updated patient on her work-up. She remains without complaints. I advised her to restart the metoprolol. She has a primary care follow-up visit on the . Strict return precautions discussed, stable at time of discharge. - Vital Signs Vital signs: Temp Pulse Resp BP Pulse Ox 97.6 F 63 13 118/59 L 99 02/12/20 03:53 02/12/20 03:53 02/12/20 03:53 02/12/20 03:53 02/12/20 03:53 - Laboratory Result Diagrams: 02/12/20 01:16 02/12/20 01:16 Laboratory results interpreted by me: 02/12/20 02/12/20 01:16 01:16 RDW 14.6 H BUN 27 H Creatinine 1.61 H Est GFR ( Amer) 38 L Est GFR (MDRD) Non-Af 32 L Glucose 171 H Alkaline Phosphatase 149 H - Diagnostic Test Radiology reviewed: Image reviewed, Reports reviewed - EKG Interpretation by Me Additional EKG results interpreted by me: EKG is interpreted by me. Narrow complex tachycardia present. There are discernible P waves, there is some irregularity, possible respiratory variation of sinus tachycardia versus MAT. No ST segment elevation. 02/12/20 02:34 Repeat EKG obtained. Sinus rhythm, rate 72. Narrow QRS. Borderline prolonged QTc 486. No ST segment elevation or depression. Discharge - Discharge Clinical Impression: Tachycardia, paroxysmal Disposition: HOME, SELF-CARE Additional Instructions: Please restart use of metoprolol. Follow-up with your primary care doctor as planned on the . Return to the emergency department for any concerning or worsening symptoms. Referrals: TAMMIE COSTA MD [Primary Care Provider] - Follow up as needed
[2020-02-12 01:57] LABS: ALBUMIN 4.4 g/dL (3.5-5.0); ALKALINE PHOSPHATASE 149 U/L (38-126); ANION GAP 10 (5-19); ASPARTATE AMINO TRANSFERASE 25 U/L (14-36); BILIRUBIN,DIRECT 0.2 mg/dL (0.0-0.4); BILIRUBIN,TOTAL 0.7 mg/dL (0.2-1.3); BLOOD UREA NITROGEN 27 mg/dL (7-20); CALCIUM 10.1 mg/dL (8.4-10.2); CARBON DIOXIDE 27 mmol/L (22-30); CHLORIDE 103 mmol/L (98-107); CREATINE KINASE 69 U/L (30-135); GLUCOSE 171 mg/dL (75-110); TOTAL PROTEIN 8.1 g/dL (6.3-8.2)
[2020-02-12 02:08] LABS: CREATINE KINASE MB 0.74 ng/mL (<4.55); TROPONIN I 0.027 ng/mL
--- NOTE | 2020-02-12 02:33 | RADIOLOGY REPORT (SQ) ---
CHEST X-RAY 1 VIEW on 02/12/2020 at 1:38 AM CLINICAL INDICATION: Palpitations COMPARISON: 12/23/2018 FINDINGS: The patient is status post median sternotomy and CABG. Vascular calcification is noted in the aorta. There is mild linear atelectasis or scarring in the left midlung. The lungs are otherwise clear. Cardiac, hilar and mediastinal contours are within normal limits. Pulmonary vascularity is within normal limits. IMPRESSION: No acute disease.
[2020-02-12 03:54] VITALS: BP 118/59
--- NOTE | 2020-02-12 17:50 | EKG REPORT ---
SEVERITY:- BORDERLINE ECG - SINUS RHYTHM BORDERLINE PROLONGED QT INTERVAL : Confirmed by: Samuel Chung MD 12-Feb-2020 17:50:11
--- NOTE | 2020-02-12 17:51 | EKG REPORT ---
SEVERITY:- OTHERWISE NORMAL ECG - SINUS TACHYCARDIA ATRIAL PREMATURE COMPLEX : Confirmed by: Samuel Chung MD 12-Feb-2020 17:50:20
== END 2020-02-12 04:13 | disposition home or self-care (01) ==
LOC: ER 23:58
DX: I47.9 Paroxysmal tachycardia, unspecified (principal); I48.91 Unspecified atrial fibrillation; I10 Essential (primary) hypertension; T44.7X6A Underdosing of beta-adrenoreceptor antagonists, initial encounter; Z91.128 Patient's intentional underdosing of medication regimen for other reason; Z91.14 Patient's other noncompliance with medication regimen; R06.7 Sneezing; R05 Cough; I25.10 Atherosclerotic heart disease of native coronary artery without angina pectoris; E11.9 Type 2 diabetes mellitus without complications; J44.9 Chronic obstructive pulmonary disease, unspecified; Z79.52 Long term (current) use of systemic steroids; Z79.899 Other long term (current) drug therapy; Z79.2 Long term (current) use of antibiotics; Z95.1 Presence of aortocoronary bypass graft; Z88.0 Allergy status to penicillin
CPT/HCPCS: 36415; 71045; 80053; 82550; 82553; 84484; 85025; 93005; 93010; 99285